=== PATIENT | male | born 1970 | race Caucasian/White ===

== ENCOUNTER 2017-03-01 07:56 | Inpatient (IN) | payer SELFPAY ==
[~2017-03-01] VITALS: Ht 177.8 cm; Wt 111.0 kg
[2017-03-01 08:00] VITALS: BP 129/73; PULSE 66; RESP 18; TEMP 98.9; O2SAT 97
[2017-03-01] MEDS ORDERED: MORPHINE SULFATE 4 MG/ML INJ IV PUSH ONE (08:30)
[2017-03-01] MEDS ORDERED: ONDANSETRON HCL 4 MG/2 ML VIAL IV PUSH ONE ×2 (08:30→08:52)
--- NOTE | 2017-03-01 08:43 | PD ---
HPI Chief Complaint: Fall Time Seen by Provider: 08:15 Travel History International Travel<30 days: No Contact w/Intl Traveler<30days: No Traveled to known affect area: No History of Present Illness HPI The patient is a 46-year-old male who presents to the emergency department for bilateral lower extremity weakness. The patient states he's been having some pain from the hip area bilateral that radiates down into the knees. The patient states he feels like his legs are "torn apart". The patient also complains of weakness the lower extremities, has difficulty walking , has been using a cane for the last several weeks and walking in the portal. The patient states he is more weak the morning, and slightly improves during the afternoon, but the weakness returns and neck a. The patient states he is trending out of bed earlier today, his legs were weak, he subsequently fell. The patient recently moved from [place], [place], to the local area several months ago and does not have a local primary physician. The patient denies any history of Guillain [place]. 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 The patient states his been cancer free for over 20 years. The patient denies any numbness or tingling to lower extremities, but does have a history of neuropathy, per his report, however takes no medications. The patient denies any weakness of the upper extremities and denies any difficulty swallowing or with breathing. The weakness is been ongoing for last several weeks and progressive. He denies any rash to lower extremities. He denies any urinary or fecal incontinence. PFSH Past Medical History Cancer: Yes (TESTICULAR-REMOVED IN REMISSION) Cardiomyopathy: Yes Chemotherapy: Yes Medical other: Yes (CHRONIC JOINT PAIN) Past Surgical History Abdominal Surgery: Yes (PARTIAL COLON REMOVAL) Appendectomy: Yes Social History Alcohol Use: No Tobacco Use: No Substance Use: No Allergies-Medications (Allergen,Severity, Reaction): Coded Allergies: Cat Dander (Verified Allergy, Severe, 03/01/17) EYES WATERING Latex (Verified Allergy, Severe, 03/01/17) SKIN RASH Reported Meds & Prescriptions Reported Meds & Active Scripts Active No Active Prescriptions or Reported Medications Review of Systems Except as stated in HPI: all other systems reviewed are Neg General / Constitutional: No: Fever Cardiovascular: No: Chest Pain or Discomfort Respiratory: No: Shortness of Breath Gastrointestinal: No: Nausea, Vomiting, Abdominal Pain Genitourinary: No: Dysuria, Incontinence Musculoskeletal: Positive: Weakness, Pain Neurologic: Positive: Weakness, Other (history of neuropathy), No: Paresthesia , Sensory Disturbance Physical Exam Narrative GENERAL: Awake, alert, 46-year-old male who appears his stated age and is in no acute respiratory distress. SKIN: Focused skin assessment warm/dry. HEAD: Atraumatic. Normocephalic. EYES: Pupils equal and round. No scleral icterus. No injection or drainage. ENT: No nasal bleeding or discharge. Mucous membranes pink and moist. NECK: Trachea midline. No JVD. CARDIOVASCULAR: Regular rate and rhythm. No murmur appreciated. RESPIRATORY: No accessory muscle use. Clear to auscultation. Breath sounds equal bilaterally. GASTROINTESTINAL: Abdomen soft, non-tender, nondistended. Well-healed midline scar. Back: No tenderness over the thoracic or lumbar vertebrae. Musculoskeletal: No cyanosis noted. Strength with flexion of the hips, extension knees, plantar flexion, flexion of the great toes bilateral is 4+/5. Positive dorsalis pedal pulses. NEUROLOGICAL: Awake and alert. No obvious cranial nerve deficits. Motor grossly within normal limits. Normal speech. Sensation is symmetric in the lower extremity is bilateral. Knee DTRs are slightly hyperreflexic at 3+, ankle DTRs are 2+. PSYCHIATRIC: Appropriate mood and affect; insight and judgment normal. Data Data Last Documented VS Vital Signs Date Time Temp Pulse Resp B/P Pulse Ox O2 Delivery O2 Flow Rate FiO2 03/01/17 09:30 64 20 129/73 97 Room Air 03/01/17 08:00 98.9 Orders Complete Blood Count With Diff (03/01/17 08:25) Comprehensive Metabolic Panel (03/01/17 08:25) Act Partial Throm Time (Ptt) (03/01/17 08:25) Prothrombin Time / Inr (Pt) (03/01/17 08:25) Westergren Sedimentation Rate (03/01/17 08:25) Creatine Kinase (Cpk) (03/01/17 08:25) Pelvis, Ap Only (Routine) (03/01/17 ) Morphine Inj (Morphine Inj) (03/01/17 08:30) Ondansetron Inj (Zofran Inj) (03/01/17 08:30) Mri L Spine W&W/O Contrast (03/01/17 ) Gadodiamide Pf Inj (Omniscan Pf Inj) (03/01/17 09:27) Consult Neurology (03/01/17 ) Consult Neurosurgery (03/01/17 ) Morphine Inj (Morphine Inj) (03/01/17 11:30) Dexamethasone Inj (Decadron Inj) (03/01/17 11:30) NPO (03/01/17 11:21) Dexamethasone (Decadron) (03/01/17 11:30) Mri C Spine W Contrast (03/01/17 ) Mri T Spine W Contrast (03/01/17 ) (Hub Use Only)Inp Phy Cons/Ref (03/01/17 ) (Hub Use Only)Inp Phy Cons/Ref (03/01/17 ) Admit Order (Ed Use Only) (03/01/17 11:46) Labs Laboratory Tests Test 03/01/17 08:34 White Blood Count 7.6 TH/MM3 Red Blood Count 4.49 MIL/MM3 Hemoglobin 15.4 GM/DL Hematocrit 43.1 % Mean Corpuscular Volume 96.0 FL Mean Corpuscular Hemoglobin 34.2 PG Mean Corpuscular Hemoglobin 35.6 % Concent Red Cell Distribution Width 13.1 % Platelet Count 202 TH/MM3 Mean Platelet Volume 9.7 FL Neutrophils (%) (Auto) 59.0 % Lymphocytes (%) (Auto) 26.1 % Monocytes (%) (Auto) 8.2 % Eosinophils (%) (Auto) 5.6 % Basophils (%) (Auto) 1.1 % Neutrophils # (Auto) 4.5 TH/MM3 Lymphocytes # (Auto) 2.0 TH/MM3 Monocytes # (Auto) 0.6 TH/MM3 Eosinophils # (Auto) 0.4 TH/MM3 Basophils # (Auto) 0.1 TH/MM3 CBC Comment DIFF FINAL Differential Comment Erythrocyte Sedimentation Rate 1 mm/hr Prothrombin Time 11.0 SEC Prothromb Time International 1.0 RATIO Ratio Activated Partial 26.3 SEC Thromboplast Time Sodium Level 137 MEQ/L Potassium Level 4.0 MEQ/L Chloride Level 103 MEQ/L Carbon Dioxide Level 25.0 MEQ/L Anion Gap 9 MEQ/L Blood Urea Nitrogen 16 MG/DL Creatinine 1.11 MG/DL Estimat Glomerular Filtration 71 ML/MIN Rate Random Glucose 102 MG/DL Calcium Level 8.8 MG/DL Total Bilirubin 0.8 MG/DL Aspartate Amino Transf 29 U/L (AST/SGOT) Alanine Aminotransferase 51 U/L (ALT/SGPT) Alkaline Phosphatase 82 U/L Total Creatine Kinase 273 U/L Total Protein 7.8 GM/DL Albumin 3.9 GM/DL MDM Medical Decision Making Medical Screen Exam Complete: Yes Emergency Medical Condition: Yes Medical Record Reviewed: Yes Interpretation(s) Last Impressions Pelvis X-Ray 03/01/17 0000 Signed Impressions: Service Date/Time: Wednesday, March 01, 2017 08:27 - CONCLUSION: Unremarkable examination of the pelvis. Dg Alberto MD Lumbar Spine MRI 03/01/17 0000 Signed Impressions: Service Date/Time: Wednesday, March 01, 2017 09:00 - CONCLUSION: 1. There is a left paracentral disc extrusion at L1-L2 completely effacing left lateral recess. There is mass effect on the adjacent nerve roots. 2. There is mild spinal canal stenosis at L3-L4 secondary to disc bulge and facet and ligamentum flavum hypertrophy. Please see above for detailed description of each level. Dg Harden MD Laboratory Tests Test 03/01/17 08:34 White Blood Count 7.6 TH/MM3 Red Blood Count 4.49 MIL/MM3 Hemoglobin 15.4 GM/DL Hematocrit 43.1 % Mean Corpuscular Volume 96.0 FL Mean Corpuscular Hemoglobin 34.2 PG Mean Corpuscular Hemoglobin 35.6 % Concent Red Cell Distribution Width 13.1 % Platelet Count 202 TH/MM3 Mean Platelet Volume 9.7 FL Neutrophils (%) (Auto) 59.0 % Lymphocytes (%) (Auto) 26.1 % Monocytes (%) (Auto) 8.2 % Eosinophils (%) (Auto) 5.6 % Basophils (%) (Auto) 1.1 % Neutrophils # (Auto) 4.5 TH/MM3 Lymphocytes # (Auto) 2.0 TH/MM3 Monocytes # (Auto) 0.6 TH/MM3 Eosinophils # (Auto) 0.4 TH/MM3 Basophils # (Auto) 0.1 TH/MM3 CBC Comment DIFF FINAL Differential Comment Erythrocyte Sedimentation Rate 1 mm/hr Prothrombin Time 11.0 SEC Prothromb Time International 1.0 RATIO Ratio Activated Partial 26.3 SEC Thromboplast Time Sodium Level 137 MEQ/L Potassium Level 4.0 MEQ/L Chloride Level 103 MEQ/L Carbon Dioxide Level 25.0 MEQ/L Anion Gap 9 MEQ/L Blood Urea Nitrogen 16 MG/DL Creatinine 1.11 MG/DL Estimat Glomerular Filtration 71 ML/MIN Rate Random Glucose 102 MG/DL Calcium Level 8.8 MG/DL Total Bilirubin 0.8 MG/DL Aspartate Amino Transf 29 U/L (AST/SGOT) Alanine Aminotransferase 51 U/L (ALT/SGPT) Alkaline Phosphatase 82 U/L Total Creatine Kinase 273 U/L Total Protein 7.8 GM/DL Albumin 3.9 GM/DL Differential Diagnosis Differential diagnosis includes upper motor neuron neuropathy, lower motor neuron neuropathy, Guillain [place], myositis, polymyalgia rheumatica, fracture, contusion, neuropathy, lumbar spine metastasis. Narrative Course IV was established, labs are drawn and sent, and the patient was placed on cardiac telemetry monitoring and continuous pulse oximetry monitoring. The patient was administer morphine and Zofran for his discomfort. MRI of the lumbar spine was ordered as patient is weak and slightly hyperreflexic. Invasive radiology lumbar puncture was also ordered to rule out pleocyctosis from Guillain [place]. Sedimentation rate and CPK were sent to lab. CPK is normal, sedimentation rate is 1. MRI does reveal a prominent disc bulge at the L1-L2 interface approximately 1 cm posteriorly with mass effect on the thecal sac. The patient has hyperreflexia at the knees 3+, normal at the ankles. Therefore, a call was placed to the neurosurgeon on-call, I discussed the patient with the mid-level provider for Dr. Ortiz who will evaluate the MRI. The invasive radiology lumbar puncture was canceled, this is most likely related to disc and not to Guillian barre. The patient was evaluated by neurosurgery in the emergency department, will add MRI of cervical spine and thoracic spine to rule out cord compression. They recommend admission to the medical service with consultation to neurosurgery. Therefore, the on-call medical team was paged for admission. Physician Communication Physician Communication [facility] were paged for admission. I discussed the patient with Dr. Goff who agrees with admission. Diagnosis Primary Impression: Myelopathy Additional Impression: Bilateral leg weakness Admitting Information Admitting Physician Requests: Admit Scripts No Active Prescriptions or Reported Meds Condition: Stable Orestes Zarate MD March 01, 2017 08:43
[2017-03-01 08:49] LABS: AUTOMATED NEUTROPHIL # 4.5 TH/MM3 (1.8-7.7); BASOPHIL # 0.1 TH/MM3 (0-0.2); BASOPHIL % 1.1 % (0.0-2.0); EOSINOPHIL # 0.4 TH/MM3 (0-0.4); EOSINOPHIL % 5.6 % (0.0-4.0); HEMATOCRIT 43.1 % (39.0-51.0); HEMO FLAGS DIFF FINAL; LYMPH % 26.1 % (9.0-44.0); MEAN CORPUSCULAR HEMOGLOBIN 34.2 PG (27.0-34.0); MEAN CORPUSCULAR HGB CONC 35.6 % (32.0-36.0); MONO % 8.2 % (0.0-8.0); PLATELET COUNT 202 TH/MM3 (150-450); RED BLOOD COUNT 4.49 MIL/MM3 (4.50-5.90); RED CELL DISTRIBUTION WIDTH 13.1 % (11.6-17.2); WHITE BLOOD COUNT 7.6 TH/MM3 (4.0-11.0)
[2017-03-01] MEDS ORDERED: PROPOFOL 200 MG/20 ML AMP IV ONE (08:52)
[2017-03-01] MEDS ORDERED: LACTATED RINGER'S 1000 ML INJ 2,000 ML IV ONE (08:53)
[2017-03-01 08:55] LABS: APTT (PATIENT) 26.3 SEC (24.3-30.1)
[2017-03-01 08:57] LABS: ANION GAP 9 MEQ/L (5-15); AST (GOT) 29 U/L (15-37); BLOOD UREA NITROGEN 16 MG/DL (7-18); CHLORIDE 103 MEQ/L (98-107); GLOMERULAR FILTRATION RATE 71 ML/MIN (>89); SODIUM (NA) 137 MEQ/L (136-145)
[2017-03-01 09:00] LABS: ALKALINE PHOSPHATASE 82 U/L (45-117); ALT (GPT) 51 U/L (12-78); CREATINE KINASE 273 U/L (39-308); TOTAL BILIRUBIN ADULT 0.8 MG/DL (0.2-1.0)
--- NOTE | 2017-03-01 09:19 | RADRPT ---
EXAM DATE/TIME: 03/01/2017 08:27 [facility] COMPARISON: No previous studies available for comparison. INDICATIONS : Bilateral pelvic pain after falling. MEDICAL HISTORY : None. SURGICAL HISTORY : None. ENCOUNTER: Initial ACUITY: 2 weeks PAIN SCORE: 8/10 LOCATION: Bilateral Pelvis. FINDINGS: A single frontal view of the pelvis demonstrates no evidence of fracture. The bony pelvic ring is in tact. Bony mineralization is normal. The soft tissues are intact. CONCLUSION: Unremarkable examination of the pelvis. Dg Alberto MD on March 01, 2017 at 9:16 Board Certified Radiologist. This report was verified electronically.
[2017-03-01] MEDS ORDERED: GADODIAMIDE PF 287 MG/ML 20 ML VIAL (for RAD MRI) IV ONE (09:27)
[2017-03-01 09:30] VITALS: BP 129/73; PULSE 64; RESP 20; O2SAT 97
--- NOTE | 2017-03-01 10:40 | RADRPT ---
EXAM DATE/TIME: 03/01/2017 09:00 [facility] COMPARISON: No previous studies available for comparison. INDICATIONS : Pain. Hx of testicular ca. CONTRAST: 20 cc Omniscan (gadodiamide) IV MEDICAL HISTORY : Carcinoma, testicular. SURGICAL HISTORY : Lobectomy. Appendectomy. Left orchiectomy. ENCOUNTER: Initial ACUITY: 4-6 days PAIN SCORE: 4/10 LOCATION: back TECHNIQUE: Multiplanar multisequence MRI of the lumbar spine was performed with and without contrast. FINDINGS: The most caudal appearing lumbar vertebra is numbered as L5. VERTEBRAE: Bone marrow signal is within normal limits the vertebral body height is maintained. There is no anter olisthesis or retrolisthesis. No bone lesion is seen. CONUS: Normal level and configuration. POST CONTRAST: No abnormal areas of contrast enhancement are seen. T12-L1: No disc herniation, canal stenosis, or neural foraminal stenosis. L1-L2: There is a left paracentral disc extrusion that extends superiorly from the disc space and extends ap proximately 10 mm posterior to the L1 vertebral body. It effaces the left lateral recess and has mass effect on the thecal sac. No spinal canal stenosis or right neural foraminal narrowing is present. T here is mild left neural foraminal narrowing. L2-L3: There is mild facet hypertrophy with a mild diffuse disc bulge. No canal stenosis or neuroforaminal s tenosis is present. L3-L4: There is a diffuse disc bulge with mild facet and ligamentum flavum hypertrophy. The lateral recesses are effaced and there is mild narrowing of the spinal canal. There is also mild bilateral neural for aminal stenosis. L4-L5: There is a diffuse disc bulge with small annular tear posteriorly. There is moderate facet hypertroph y. No spinal canal stenosis is present. There is mild narrowing of the neural foramina. L5-S1: Decreased disc height. On sagittal imaging no disc herniation, canal stenosis, or neural foraminal na rrowing is seen. CONCLUSION: 1. There is a left paracentral disc extrusion at L1-L2 completely effacing left lateral recess. There is mass effect on the adjacent nerve roots. 2. There is mild spinal canal stenosis at L3-L4 secondary to disc bulge and facet and ligamentum flav um hypertrophy. Please see above for detailed description of each level. Dg Harden MD on March 01, 2017 at 10:34 Board Certified Radiologist. This report was verified electronically.
[2017-03-01] MEDS ORDERED: MORPHINE SULFATE 4 MG/ML INJ IV PUSH PRN ×2 (11:30→16:00)
[2017-03-01] MEDS ORDERED: DEXAMETHASONE 4 MG TAB PO ONE (11:30)
[2017-03-01] MEDS ORDERED: DEXAMETHASONE SOD PHOS 4 MG/ML VIAL IV PUSH ONE (11:30)
[2017-03-01] MEDS ORDERED: SODIUM CHLOR 0.9% 1000 ML INJ 1,000 ML IV SCH ×2 (12:00→12:39)
[2017-03-01] MEDS ORDERED: ONDANSETRON HCL 4 MG/2 ML VIAL IV PUSH PRN (12:00)
[2017-03-01 12:30] VITALS: BP 117/58; PULSE 73; RESP 14; O2SAT 95
--- NOTE | 2017-03-01 12:40 | RADRPT ---
EXAM DATE/TIME: 03/01/2017 11:52 [facility] COMPARISON: No previous studies available for comparison. INDICATIONS : Inability to ambulate. CONTRAST: 20 cc Omniscan (gadodiamide) IV MEDICAL HISTORY : Carcinoma, testicular. SURGICAL HISTORY : Lobectomy. Colon resection. Right orchiectomy. ENCOUNTER: Initial ACUITY: 1 day PAIN SCORE: 5/10 LOCATION: Par[facility] TECHNIQUE: Multiplanar multisequence MRI of the thoracic spine was performed. FINDINGS: VERTEBRA: Normal vertebral body height. Bone marrow signal is within normal limits. There is thoracic scoliosis . ALIGNMENT: No anterolisthesis or retrolisthesis. CORD: Normal position and configuration. POST CONTRAST: No abnormal areas of contrast enhancement seen. T1-T2: No disc herniation, canal stenosis, or neural foraminal stenosis. T2-T3: No disc herniation, canal stenosis, or neural foraminal stenosis. T3-T4: No disc herniation, canal stenosis, or neural foraminal stenosis. T4-T5: No disc herniation, canal stenosis, or neural foraminal stenosis. T5-T6: There is a small central disc bulge. No canal stenosis or neural foraminal stenosis is present.. T6-T7: No disc herniation, canal stenosis, or neural foraminal stenosis. T7-T8: There is a small right paracentral disc protrusion that mildly effaces the spinal cord. No canal sten osis is present. T8-T9: No disc herniation, canal stenosis, or neural foraminal stenosis. T9-T10: No disc herniation, canal stenosis, or neural foraminal stenosis. T10-T11: No disc herniation, canal stenosis, or neural foraminal stenosis. T11-T12: No disc herniation, canal stenosis, or neural foraminal stenosis. T12-L1: No disc herniation, canal stenosis, or neural foraminal stenosis. There are air space opacities throughout the lungs bilaterally, more pronounced in the lower lung zon es. There are also mediastinal lymph nodes present that appear enlarged. CONCLUSION: 1. Thoracic scoliosis with mild degenerative change. However, no significant spinal canal stenosis or neural foraminal narrowing is identified. 2. There are space opacities at both lung bases and suspected enlarged mediastinal lymph nodes. Consi maria victoria chest CT with IV contrast for further evaluation. Dg Harden MD on March 01, 2017 at 12:35 Board Certified Radiologist. This report was verified electronically.
[2017-03-01] MEDS ORDERED: ceFAZolin 2 GM PREMIX 50 ML IV SCH (12:45)
--- NOTE | 2017-03-01 12:48 | HHI.HP ---
[facility] Service [facility] Primary Care Physician No Primary Care Physician Admission Diagnosis myelopathy versus cord compression, bilateral lower extremity weakne Diagnoses: (1) Bilateral leg weakness Diagnosis: Principal Chief Complaint: weakness of both legs Travel History International Travel<30 Days: No Contact w/Intl Traveler <30 Da: No Traveled to Known Affected Are: No History of Present Illness patient is a 46 y/o male with history of testicular cancer in remote past presented to ER with weakness and pain of both legs. he says that this has been going on for a few months. initially it was attributed to the neuropathy but he says that the weakness has been getting worse to the extent that he had problem with walking. he says that the pain starts in hip area and radiates down to both feet. pain is worse when he remains in one position for a period of time. he denies any urine or stool incontinence. but he has some tingling of both legs. he says that his left arm is weaker than the right side. Review of Systems Constitutional: DENIES: Fever, Weight loss, Chills, Night Sweats Eyes: DENIES: Blurred vision, Diplopia, Vision loss, Double Vision Ears, nose, mouth, throat: DENIES: Tinnitus, Vertigo, Throat pain, Epistaxis Respiratory: DENIES: Apneas, Cough, Snoring, Wheezing, Hemoptysis, Sputum production, Shortness of breath Cardiovascular: DENIES: Chest pain, Palpitations, Syncope, Dyspnea on Exertion , PND, Lower Extremity Edema, Orthopnea, Claudication Gastrointestinal: DENIES: Abdominal pain, Black stools, Bloody stools, Constipation, Diarrhea, Nausea, Vomiting, Difficulty Swallowing, Anorexia Genitourinary: DENIES: Urinary frequency, Urgency, Hematuria, Dysuria Musculoskeletal: DENIES: Joint pain, Muscle aches, Stiffness, Joint Swelling Integumentary: DENIES: Rash Neurologic: COMPLAINS OF: Abnormal gait, Localized weakness, DENIES: Headache , Seizures, Speech Problems, Tremor, Poor Balance Psychiatric: DENIES: Anxiety, Confusion, Mood changes, Depression, Hallucinations, Agitation, Suicidal Ideation, Homicidal Ideation, Delusions Past Family Social History Past Medical History testicular cancer Past Surgical History testicular and lung surgery. appendectomy Reported Medications none reported. Allergies: Coded Allergies: Cat Dander (Verified Allergy, Severe, 03/01/17) EYES WATERING Latex (Verified Allergy, Severe, 03/01/17) SKIN RASH Active Ordered Medications Current Medications Morphine Sulfate (Morphine Inj) 4 mg ONCE ONCE IV PUSH Last administered on 08:40; Start 03/01/17 at 08:30; Stop 03/01/17 at 08:31; Status DC Ondansetron HCl (Zofran Inj) 4 mg ONCE ONCE IV PUSH Last administered on 08:40; Start 03/01/17 at 08:30; Stop 03/01/17 at 08:31; Status DC Gadodiamide (Omniscan Pf Inj) 20 ml STK-MED ONCE IV Last administered on 09:27; Start 03/01/17 at 09:27; Stop 03/01/17 at 09:28; Status DC Morphine Sulfate (Morphine Inj) 2 mg Q4H PRN IV PUSH PAIN SCALE 6 TO 10 Last administered on 03/01/17 11:32; Start 03/01/17 at 11:30 Dexamethasone Sodium Phosphate (Decadron Inj) 8 mg ONCE ONCE IV PUSH Last administered on 03/01/17 11:32; Start 03/01/17 at 11:30; Stop 03/01/17 at 11:31; Status DC Dexamethasone (Decadron) 4 mg ONCE ONCE PO ; Start 03/01/17 at 11:30; Stop at 11:31; Status DC Ondansetron HCl 4 mg 4 mg Q8H PRN IV PUSH NAUSEA; Start 03/01/17 at 12:00 Sodium Chloride (NS 1000 ml Inj) 1,000 ml @ 100 mls/hr Q10H IV ; Start 03/01/17 at 12:00 Family History diabetes in father. Social History smokes half a pack a day. drinks occasionally. Physical Exam Vital Signs Vital Signs Date Time Temp Pulse Resp B/P Pulse Ox O2 Delivery O2 Flow Rate FiO2 03/01/17 12:30 73 14 117/58 95 Room Air 03/01/17 09:30 64 20 129/73 97 Room Air 03/01/17 08:00 98.9 66 18 129/73 97 Physical Exam GENERAL: This is a well-nourished, well-developed patient, in no apparent distress. SKIN: No rashes, ecchymoses or lesions. Cool and dry. HEAD: Atraumatic. Normocephalic. No temporal or scalp tenderness. EYES: Pupils equal round and reactive. Extraocular motions intact. No scleral icterus. No injection or drainage. ENT: Nose without bleeding, purulent drainage or septal hematoma. Throat without erythema, tonsillar hypertrophy or exudate. Uvula midline. Airway patent. NECK: Trachea midline. No JVD or lymphadenopathy. Supple, nontender, no meningeal signs. CARDIOVASCULAR: Regular rate and rhythm without murmurs, gallops, or rubs. RESPIRATORY: Clear to auscultation. Breath sounds equal bilaterally. No wheezes , rales, or rhonchi. GASTROINTESTINAL: Abdomen soft, non-tender, nondistended. No hepato-splenomegaly , or palpable masses. No guarding. MUSCULOSKELETAL: Extremities without clubbing, cyanosis, or edema. No joint tenderness, effusion, or edema noted. No calf tenderness. Negative Homans sign bilaterally. NEUROLOGICAL: Awake and alert. straight leg raising positive on both sides. Laboratory Laboratory Tests Test 03/01/17 08:34 White Blood Count 7.6 Red Blood Count 4.49 Hemoglobin 15.4 Hematocrit 43.1 Mean Corpuscular Volume 96.0 Mean Corpuscular Hemoglobin 34.2 Mean Corpuscular Hemoglobin 35.6 Concent Red Cell Distribution Width 13.1 Platelet Count 202 Mean Platelet Volume 9.7 Neutrophils (%) (Auto) 59.0 Lymphocytes (%) (Auto) 26.1 Monocytes (%) (Auto) 8.2 Eosinophils (%) (Auto) 5.6 Basophils (%) (Auto) 1.1 Neutrophils # (Auto) 4.5 Lymphocytes # (Auto) 2.0 Monocytes # (Auto) 0.6 Eosinophils # (Auto) 0.4 Basophils # (Auto) 0.1 CBC Comment DIFF FINAL Differential Comment Erythrocyte Sedimentation Rate 1 Prothrombin Time 11.0 Prothromb Time International 1.0 Ratio Activated Partial 26.3 Thromboplast Time Sodium Level 137 Potassium Level 4.0 Chloride Level 103 Carbon Dioxide Level 25.0 Anion Gap 9 Blood Urea Nitrogen 16 Creatinine 1.11 Estimat Glomerular Filtration 71 Rate Random Glucose 102 Calcium Level 8.8 Total Bilirubin 0.8 Aspartate Amino Transf 29 (AST/SGOT) Alanine Aminotransferase 51 (ALT/SGPT) Alkaline Phosphatase 82 Total Creatine Kinase 273 Total Protein 7.8 Albumin 3.9 Result Diagram: 03/01/17 0834 03/01/17 0834 Imaging Last Impressions Pelvis X-Ray 03/01/17 0000 Signed Impressions: Service Date/Time: Wednesday, March 01, 2017 08:27 - CONCLUSION: Unremarkable examination of the pelvis. Dg Alberto MD Lumbar Spine MRI 03/01/17 0000 Signed Impressions: Service Date/Time: Wednesday, March 01, 2017 09:00 - CONCLUSION: 1. There is a left paracentral disc extrusion at L1-L2 completely effacing left lateral recess. There is mass effect on the adjacent nerve roots. 2. There is mild spinal canal stenosis at L3-L4 secondary to disc bulge and facet and ligamentum flavum hypertrophy. Please see above for detailed description of each level. Dg Harden MD Assessment and Plan Assessment and Plan A/P - bilateral lower extremity weakness/ left upper extremity weakness lumbar spine MRI with disc protrusion at L1-2 level/ cervical MRI pending received a dose of dexamethasone in ER- keep NPO for now- neurosurgery and neurology consulted. continue with pain control. -history of testicular cancer in remote past -DVT prophylaxis with SCD's Discussed Condition With ER physician and the patient. Physician Certification 2 Midnight Certification Type: Admission for Inpatient Services Order for Inpatient Services The services are ordered in accordance with Medicare regulations or non- Medicare payer requirements, as applicable. In the case of services not specified as inpatient-only, they are appropriately provided as inpatient services in accordance with the 2-midnight benchmark. Estimated LOS (days): 3 days is the estimated time the patient will need to remain in the hospital, assuming treatment plan goals are met and no additional complications. Post-Hospital Plan: Not yet determined Gerard Goff MD March 01, 2017 12:48
--- NOTE | 2017-03-01 12:59 | RADRPT ---
EXAM DATE/TIME: 03/01/2017 11:52 [facility] COMPARISON: No previous studies available for comparison. INDICATIONS : Inability to ambulate. CONTRAST: 20 cc Omniscan (gadodiamide) IV MEDICAL HISTORY : Carcinoma, testicular. SURGICAL HISTORY : Colon resection. Lobectomy. Right orchiectomy. ENCOUNTER: Initial ACUITY: 1 day PAIN SCORE: 5/10 LOCATION: [facility] TECHNIQUE: Multiplanar, multisequence MRI examination of the cervical spine was performed. FINDINGS: VERTEBRAE: There is mild degenerative endplate change at C3-C4 and C6-C7. There is a hemangioma within the C7 ve rtebral body. ALIGNMENT: No anterolisthesis or retrolisthesis. CORD: Spinal cord demonstrates flattening at the C3-C4, C4-C5, and most severely at C5-C6 and C6-C7 levels. There is increased signal within the cord at the C6 level. POST FOSSA: The cerebellar tonsils are normal in position. POST-CONTRAST: No abnormal areas of enhancement are seen. The craniocervical junction and C1-C2 level demonstrate no acute finding. C2-C3: No disc herniation, canal stenosis, or neural frontal narrowing. C3-C4: There is decreased disc height with a moderate size diffuse disc bulge neck on this mild spinal canal stenosis and flattening of the spinal cord. There are also bilateral uncovertebral osteophytes resul ting in moderate bilateral neural foraminal narrowing. C4-C5: There is a central disc protrusion at C4-C5 that abuts and slightly effaces the spinal cord. No signi ficant canal stenosis is present. There is mild neural foraminal narrowing bilaterally. C5-C6: There is decreased disc height with moderate size diffuse posterior disc osteophyte complex causing m oderate spinal canal stenosis and anterior-posterior flattening of the cord. There is also moderate t o severe bilateral neural foraminal stenosis. C6-C7: There is decreased disc height with an extruded disc in a central to left paracentral location. It ex tends posterior to the C6 vertebral body. Bilateral uncovertebral osteophytes are also present. There is moderate to severe spinal canal stenosis with flattening of the spinal cord and moderate to sever e bilateral neural foraminal stenosis. C7-T1: There is mild facet hypertrophy bilaterally. Small posterior disc osteophyte complex is present. No s ignificant canal or neural foraminal narrowing is present. CONCLUSION: Severe degenerative change of the cervical spine with severe spinal canal stenosis at C6-C7 secondary primarily to an extruded disc. There is also spinal canal stenosis at C3-C4 and C5-C6. Areas of neur al foraminal narrowing are also present, as above. Dg Harden MD on March 01, 2017 at 12:49 Board Certified Radiologist. This report was verified electronically.
[2017-03-01] MEDS: VANCOMYCIN INJ 1,000 MG in SODIUM CHLOR 0.9% 250 ML INJ 250 ML IV SCH ×2 (13:50→13:56)
--- NOTE | 2017-03-01 14:14 | PD.CONS ---
(Kavon Ortiz MD) HPI Consult Requested By Primary Care Physician No Primary Care Physician (Kavon Ortiz MD) Service Neurosurgery Consult Requested By Dr. Zarate Reason for Consult Bilateral lower extremity weakness, rule out cord compression, myelopathy History of Present Illness Mr. Vázquez is a 46-year-old male who presents to the ED today with complaints of severe lower extremity weakness. Mr. Vázquez reports he has been suffering from progressive lower extremity weakness for the past 2 months. He has come to the point where he is unable to ambulate. He reports of pain located in the bilateral upper thigh. He denies any associated falls or trauma. He reports of minimal cervical discomfort. He reports of some numbness in his left fingers. He also feels some weakness in his upper extremities. He denies bowel or bladder incontinence, fevers, chills. He denies IV drug use. (Ashely Alford) Review of Systems Constitutional: DENIES: Fever, Chills Eyes: DENIES: Vision loss Ears, nose, mouth, throat: DENIES: Hearing loss Respiratory: DENIES: Apneas, Hemoptysis, Shortness of breath Cardiovascular: DENIES: Chest pain Genitourinary: DENIES: Urinary incontinence Neurologic: COMPLAINS OF: Abnormal gait, Localized weakness, Paresthesias, Poor Balance Psychiatric: DENIES: Hallucinations (Ashely Alford) Past Family Social History Allergies: Coded Allergies: Cat Dander (Verified Allergy, Severe, 03/01/17) EYES WATERING Latex (Verified Allergy, Severe, 03/01/17) SKIN RASH Active Ordered Medications Current Medications Morphine Sulfate (Morphine Inj) 4 mg ONCE ONCE IV PUSH Last administered on 08:40; Start 03/01/17 at 08:30; Stop 03/01/17 at 08:31; Status DC Ondansetron HCl (Zofran Inj) 4 mg ONCE ONCE IV PUSH Last administered on 08:40; Start 03/01/17 at 08:30; Stop 03/01/17 at 08:31; Status DC Gadodiamide (Omniscan Pf Inj) 20 ml STK-MED ONCE IV Last administered on 09:27; Start 03/01/17 at 09:27; Stop 03/01/17 at 09:28; Status DC Morphine Sulfate (Morphine Inj) 2 mg Q4H PRN IV PUSH PAIN SCALE 6 TO 10 Last administered on 03/01/17 11:32; Start 03/01/17 at 11:30 Dexamethasone Sodium Phosphate (Decadron Inj) 8 mg ONCE ONCE IV PUSH Last administered on 03/01/17 11:32; Start 03/01/17 at 11:30; Stop 03/01/17 at 11:31; Status DC Dexamethasone (Decadron) 4 mg ONCE ONCE PO ; Start 03/01/17 at 11:30; Stop at 11:31; Status DC Ondansetron HCl 4 mg 4 mg Q8H PRN IV PUSH NAUSEA; Start 03/01/17 at 12:00 Sodium Chloride 1,000 ml @ 100 mls/hr Q10H IV ; Start 03/01/17 at 12:00 Sodium Chloride 1,000 ml @ 100 mls/hr Q10H IV ; Start 03/01/17 at 12:39 Cefazolin Sodium/ Dextrose 50 ml @ 150 mls/hr ECHOCARDIOGRAPHER IV Last administered on 03/01/17 12:59; Start 03/01/17 at 12:45; Stop 03/02/17 at 12:44 Vancomycin HCl/ Sodium Chloride (Vancomycin Inj/ NS 250 ml Inj) 250 ml @ 250 mls/hr ECHOCARDIOGRAPHER IV Last administered on 03/01/17 13:50; Start 03/01/17 at 12:45 ; Stop 03/02/17 at 12:44 Artificial Tears (Lacrilube Opht Oint) 3.5 applic STK-MED ONCE .ROUTE ; Start at 14:20; Stop 03/01/17 at 14:21; Status DC Midazolam HCl (Versed Inj) 2 mg STK-MED ONCE .ROUTE ; Start 03/01/17 at 14:20; Stop 03/01/17 at 14:21; Status DC Fentanyl Citrate (fentaNYL INJ) 250 mcg STK-MED ONCE .ROUTE ; Start 03/01/17 at 14:20; Stop 03/01/17 at 14:21; Status DC Fentanyl Citrate (fentaNYL INJ) 250 mcg STK-MED ONCE .ROUTE ; Start 03/01/17 at 14:20; Stop 03/01/17 at 14:21; Status DC Famotidine (Pepcid Inj) 20 mg STK-MED ONCE .ROUTE ; Start 03/01/17 at 14:21; Stop 03/01/17 at 14:22; Status DC Microfibriller Collagen Hemostat (Avitene Bandage) 1 bandage STK-MED ONCE .ROUTE ; Start 03/01/17 at 14:21; Stop 03/01/17 at 14:22; Status DC Thrombin (Thrombin Top Soln) 10,000 units STK-MED ONCE .ROUTE ; Start 03/01/17 at 14:21; Stop 03/01/17 at 14:22; Status DC Gelatin (Gelfoam 100 Top) 1 foam STK-MED ONCE .ROUTE ; Start 03/01/17 at 14:21; Stop 03/01/17 at 14:22; Status DC Gentamicin Sulfate (Gentamicin Inj) 240 mg STK-MED ONCE .ROUTE ; Start 03/01/17 at 14:22; Stop 03/01/17 at 14:23; Status DC (Kavon Ortiz MD) Past Medical History Testicular CA Cardiomyopathy Chemotherapy Past Surgical History Partial Colectomy Testicular removal for CA Appendectomy Reported Medications reviewed in EMR Active Ordered Medications Laboratory Tests Test 03/01/17 03/01/17 08:34 12:55 White Blood Count 7.6 TH/MM3 Red Blood Count 4.49 MIL/MM3 Hemoglobin 15.4 GM/DL Hematocrit 43.1 % Mean Corpuscular Volume 96.0 FL Mean Corpuscular Hemoglobin 34.2 PG Mean Corpuscular Hemoglobin 35.6 % Concent Red Cell Distribution Width 13.1 % Platelet Count 202 TH/MM3 Mean Platelet Volume 9.7 FL Neutrophils (%) (Auto) 59.0 % Lymphocytes (%) (Auto) 26.1 % Monocytes (%) (Auto) 8.2 % Eosinophils (%) (Auto) 5.6 % Basophils (%) (Auto) 1.1 % Neutrophils # (Auto) 4.5 TH/MM3 Lymphocytes # (Auto) 2.0 TH/MM3 Monocytes # (Auto) 0.6 TH/MM3 Eosinophils # (Auto) 0.4 TH/MM3 Basophils # (Auto) 0.1 TH/MM3 CBC Comment DIFF FINAL Differential Comment Erythrocyte Sedimentation Rate 1 mm/hr Prothrombin Time 11.0 SEC Prothromb Time International 1.0 RATIO Ratio Activated Partial 26.3 SEC Thromboplast Time Sodium Level 137 MEQ/L Potassium Level 4.0 MEQ/L Chloride Level 103 MEQ/L Carbon Dioxide Level 25.0 MEQ/L Anion Gap 9 MEQ/L Blood Urea Nitrogen 16 MG/DL Creatinine 1.11 MG/DL Estimat Glomerular Filtration 71 ML/MIN Rate Random Glucose 102 MG/DL Calcium Level 8.8 MG/DL Total Bilirubin 0.8 MG/DL Aspartate Amino Transf 29 U/L (AST/SGOT) Alanine Aminotransferase 51 U/L (ALT/SGPT) Alkaline Phosphatase 82 U/L Total Creatine Kinase 273 U/L Total Protein 7.8 GM/DL Albumin 3.9 GM/DL Blood Type O NEGATIVE Antibody Screen NEGATIVE Blood Bank Comment Family History noncontributory Social History Denies etoh, tobacco, or illicit drug use (Ashely Alford) Physical Exam Vital Signs Vital Signs Date Time Temp Pulse Resp B/P Pulse Ox O2 Delivery O2 Flow Rate FiO2 03/01/17 12:30 73 14 117/58 95 Room Air 03/01/17 09:30 64 20 129/73 97 Room Air 03/01/17 08:00 98.9 66 18 129/73 97 Laboratory Laboratory Tests Test 03/01/17 03/01/17 08:34 12:55 White Blood Count 7.6 Red Blood Count 4.49 Hemoglobin 15.4 Hematocrit 43.1 Mean Corpuscular Volume 96.0 Mean Corpuscular Hemoglobin 34.2 Mean Corpuscular Hemoglobin 35.6 Concent Red Cell Distribution Width 13.1 Platelet Count 202 Mean Platelet Volume 9.7 Neutrophils (%) (Auto) 59.0 Lymphocytes (%) (Auto) 26.1 Monocytes (%) (Auto) 8.2 Eosinophils (%) (Auto) 5.6 Basophils (%) (Auto) 1.1 Neutrophils # (Auto) 4.5 Lymphocytes # (Auto) 2.0 Monocytes # (Auto) 0.6 Eosinophils # (Auto) 0.4 Basophils # (Auto) 0.1 CBC Comment DIFF FINAL Differential Comment Erythrocyte Sedimentation Rate 1 Prothrombin Time 11.0 Prothromb Time International 1.0 Ratio Activated Partial 26.3 Thromboplast Time Sodium Level 137 Potassium Level 4.0 Chloride Level 103 Carbon Dioxide Level 25.0 Anion Gap 9 Blood Urea Nitrogen 16 Creatinine 1.11 Estimat Glomerular Filtration 71 Rate Random Glucose 102 Calcium Level 8.8 Total Bilirubin 0.8 Aspartate Amino Transf 29 (AST/SGOT) Alanine Aminotransferase 51 (ALT/SGPT) Alkaline Phosphatase 82 Total Creatine Kinase 273 Total Protein 7.8 Albumin 3.9 Blood Type O NEGATIVE Antibody Screen NEGATIVE Blood Bank Comment (Kavon Ortiz MD) Physical Exam Mr. Vázquez is alert, awake and oriented to time, place and person. Speech is fluent. Higher cognitive functions are normal. Cranial nerve examination demonstrates the pupils to be equal, round, and reactive to light. Extra-ocular movements are intact. Facial motor and sensory function are normal and symmetrical. Gross hearing is intact, bilaterally. Sternocleidomastoid and trapezius muscles have normal and symmetrical strength. Other cranial nerves are intact. Neck is soft and supple. Cervical spine has a full range of motion in anterior flexion, extension, lateral bending, and rotation without pain. Muscle testing reveals hypertonicity in the lower extremities. Muscle strength is 5/5 in bilateral deltoid, 5-/5 right biceps, 4+/5 left biceps, 4/5 bilateral triceps, and ecommerce manager. In the lower extremities, strength is 2 to 3 /5 in both iliopsoas, quadriceps, hamstrings, 4/5 plantar flexion, dorsiflexion, and extensor hallicus longus. Sensory examination is intact to light touch in both the upper and lower extremities, symmetrically. Deep tendon reflexes are trace in the biceps, triceps, and brachioradialis, bilaterally, in the upper extremities. In the lower extremities, the patellar are 3+ brisk, and Achilles are 2+, bilaterally. There is a bilateral Babinski response. Hoffmanns sign is absent. There is no clonus. Cerebellar examination is intact to [id number] test. (Ashely Alford) Result Diagram: 03/01/17 0834 03/01/17 0834 Imaging Last Impressions Thoracic Spine MRI 03/01/17 0000 Signed Impressions: Service Date/Time: Wednesday, March 01, 2017 11:52 - CONCLUSION: 1. Thoracic scoliosis with mild degenerative change. However, no significant spinal canal stenosis or neural foraminal narrowing is identified. 2. There are space opacities at both lung bases and suspected enlarged mediastinal lymph nodes. Consider chest CT with IV contrast for further evaluation. gD Harden MD Pelvis X-Ray 03/01/17 Signed Impressions: Service Date/Time: Wednesday, March 01, 2017 08:27 - CONCLUSION: Unremarkable examination of the pelvis. Dg Alberto MD Lumbar Spine MRI 03/01/17 Signed Impressions: Service Date/Time: Wednesday, March 01, 2017 09:00 - CONCLUSION: 1. There is a left paracentral disc extrusion at L1-L2 completely effacing left lateral recess. There is mass effect on the adjacent nerve roots. 2. There is mild spinal canal stenosis at L3-L4 secondary to disc bulge and facet and ligamentum flavum hypertrophy. Please see above for detailed description of each level. Dg Harden MD Cervical Spine MRI 03/01/17 Signed Impressions: Service Date/Time: Wednesday, March 01, 2017 11:52 - CONCLUSION: Severe degenerative change of the cervical spine with severe spinal canal stenosis at C6-C7 secondary primarily to an extruded disc. There is also spinal canal stenosis at C3-C4 and C5-C6. Areas of neural foraminal narrowing are also present, as above. Dg Harden MD (Kvaon Ortiz MD) Imaging Laboratory Tests Test 03/01/17 03/01/17 08:34 12:55 White Blood Count 7.6 TH/MM3 Red Blood Count 4.49 MIL/MM3 Hemoglobin 15.4 GM/DL Hematocrit 43.1 % Mean Corpuscular Volume 96.0 FL Mean Corpuscular Hemoglobin 34.2 PG Mean Corpuscular Hemoglobin 35.6 % Concent Red Cell Distribution Width 13.1 % Platelet Count 202 TH/MM3 Mean Platelet Volume 9.7 FL Neutrophils (%) (Auto) 59.0 % Lymphocytes (%) (Auto) 26.1 % Monocytes (%) (Auto) 8.2 % Eosinophils (%) (Auto) 5.6 % Basophils (%) (Auto) 1.1 % Neutrophils # (Auto) 4.5 TH/MM3 Lymphocytes # (Auto) 2.0 TH/MM3 Monocytes # (Auto) 0.6 TH/MM3 Eosinophils # (Auto) 0.4 TH/MM3 Basophils # (Auto) 0.1 TH/MM3 CBC Comment DIFF FINAL Differential Comment Erythrocyte Sedimentation Rate 1 mm/hr Prothrombin Time 11.0 SEC Prothromb Time International 1.0 RATIO Ratio Activated Partial 26.3 SEC Thromboplast Time Sodium Level 137 MEQ/L Potassium Level 4.0 MEQ/L Chloride Level 103 MEQ/L Carbon Dioxide Level 25.0 MEQ/L Anion Gap 9 MEQ/L Blood Urea Nitrogen 16 MG/DL Creatinine 1.11 MG/DL Estimat Glomerular Filtration 71 ML/MIN Rate Random Glucose 102 MG/DL Calcium Level 8.8 MG/DL Total Bilirubin 0.8 MG/DL Aspartate Amino Transf 29 U/L (AST/SGOT) Alanine Aminotransferase 51 U/L (ALT/SGPT) Alkaline Phosphatase 82 U/L Total Creatine Kinase 273 U/L Total Protein 7.8 GM/DL Albumin 3.9 GM/DL Blood Type O NEGATIVE Antibody Screen NEGATIVE Blood Bank Comment (Ashely Alford) Attending Statement I reviewed his clinical and radiological studies. He has severe cervical myelopathy with quadriparesis. Start neuro checks in a serial fashion. Suspect either a large cervical disk herniation, metastatic disease, or multiple sclerosis with myelitis. Surgical procedure is likely indicated. Recommend a STAT MRI of cervical and thoracic spine Respiratory. pulmonary toilette, nasotracheal suction, and breathing treatments with nebulizers. PT and OT eval Nutrition. Oral diet Renal. monitor closely urine output, BUN and creatinine Endocrine. Monitor serial Acu checks and SSI for tight control ID monitor for signs of infection Protonix for stress ulcer prophylaxis Joe hose and SCD's for DVT prophylaxis Addendum. MRI was reviewed. Large disk herniation and extrusion at C6-7, severe stenosis at C5-6 and to a lesert degree at C3-4. Recommend urgent surgical decompression with an anterior cervical discectomy and arthrodhesis. We have discussed the details including the [id number] details of the surgical procedure, its indications, alternatives, risks, and potential complications. Risks and potential complications include, but are not limited to, infection, blood loss, CSF leak, partial or complete loss of sight in one or both eyes, paresis, paralysis, permanent pain or difficulty swallowing, loss of bowel or bladder function, complications from anesthesia, blood clot, stroke, myocardial infarction, or even . (Kavon Ortiz MD) Kavon Ortiz MD March 01, 2017 14:14 Ashely Alford March 01, 2017 15:32
[2017-03-01] MEDS ORDERED: ARTIFICIAL TEARS OPTH OINT 3.5 APPLIC/3.5 GM TUBO ONE (14:20)
[2017-03-01] MEDS ORDERED: fentaNYL CITRATE 250 MCG/5 ML AMP ONE ×2 (14:20)
[2017-03-01] MEDS ORDERED: MIDAZOLAM HCL 2 MG/2 ML VIAL ONE (14:20)
[2017-03-01] MEDS ORDERED: MICROFIBRILLAR COLLAGEN HEMOSTAT 70 X 35 MM BANDAGE ONE (14:21)
[2017-03-01] MEDS ORDERED: FAMOTIDINE 20 MG/2 ML VIAL ONE (14:21)
[2017-03-01] MEDS ORDERED: GELFOAM SIZE 100 ONE (14:21)
[2017-03-01] MEDS ORDERED: THROMBIN (TOPICAL) 5,000 UNIT VIAL ONE (14:21)
[2017-03-01] MEDS ORDERED: GENTAMICIN SULFATE 80 MG/2 ML VIAL ONE (14:22)
[2017-03-01] MEDS ORDERED: SODIUM CHLORIDE 0.9% FLUSH 5 ML FLUSH IVF PRN (15:45)
[2017-03-01] MEDS ORDERED: ACETAMINOPHEN 325 MG TAB PO PRN (16:00)
[2017-03-01] MEDS ORDERED: ceFAZolin INJ 1,000 MG VIAL IV ONE ×2 (17:00)
--- NOTE | 2017-03-01 18:37 | RADRPT ---
EXAM DATE/TIME: 03/01/2017 14:55 [facility] COMPARISON: No previous studies available for comparison. INDICATIONS : C5-C7 fusion. MEDICAL HISTORY : None. SURGICAL HISTORY : None. ENCOUNTER: Subsequent ACUITY: 1 day PAIN SCORE: Non-responsive. LOCATION: C5-C7 FINDINGS: Lateral view in the operating room shows evidence of discectomy and fusion procedure with interbody a nd anterior instrumentation at C5/C6. Alignment within normal limits. No gross complication demonstra mingo. CONCLUSION: Discectomy and fusion procedure at C5/C6. No acute abnormality demonstrated. Dg Caldwell MD on March 01, 2017 at 18:35 Board Certified Radiologist. This report was verified electronically.
[2017-03-01] MEDS: DEXAMETHASONE SOD PHOS 4 MG/ML VIAL IV PUSH SCH (18:45)
[2017-03-01] MEDS: NS + KCL 20 MEQ INJ 1,000 ML IV SCH (19:00)
[2017-03-01] MEDS ORDERED: *morphine SULFATE 8 MG/ML PERIprocedure ONLY ONE ×2 (19:16→19:37)
[2017-03-01] MEDS: SODIUM CHLORIDE 0.9% FLUSH 5 ML FLUSH IVF SCH (20:01)
[2017-03-01] MEDS ORDERED: diphenhydrAMINE HCL 50 MG/ML VIAL ONE (20:42)
[2017-03-01] MEDS: ceFAZolin 2 GM PREMIX 50 ML IV SCH (20:54)
[2017-03-01] MEDS: DOCUSATE SODIUM 100 MG CAP PO SCH (20:54)
--- NOTE | 2017-03-01 21:54 | PD.OP ---
Operative Report Date of Surgery: March 01, 2017 Preoperative Diagnosis: Cervical disk herniation with cord compression, sevee myelopathy and tetraparesis Postoperative Diagnosis: Cervical disk herniation with cord compression, sevee myelopathy and tetraparesis Procedure: C5-6, C6-7 anterior cervical discectomy, interbody arthodhesis using PEEK cage filled with autologous bone graft, Simplicity plate and screws. Anesthesia: general Surgeon: Kavon Ortiz Road Mixer Operator(s): huey campos Operation and Findings: INDICATIONS FOR THE PROCEDURE Mr Vázquez is a 46 year-old male who presented with intractable neck pain, severe myelopathy and tetraparesis. He was found to have significant spondylosis with stenosis, a large disk herniation and severe spinal cord compression. A surgical decompression and arthrodhesis were indicated. The [id number] details of the procedure, indications, alternatives, risks and potential complications were fully discussed with the patient. The patient fully understood. All The questions were answered. No guarantees were given. The patient voiced requesting the procedure and provided informed consents. The patient was offered the alternative of delaying the procedure and continuing with nonsurgical management. DETAILS OF THE SURGICAL PROCEDURE After the induction of general anesthesia, endotracheal intubation was performed. A Fried catheter, bilateral RENETTA hose, and sequential compression devices were placed and kept throughout the procedure. Placement of electrodes for neurophysiological monitoring of the somato sensorial evoked potentials. motor evoked potentials, and EMG as well as laryngeal nerve monitoring was achieved. The patient was positioned supine on a [place] table with the head over a gel doughnut. All pressure points were carefully padded with eggcrate mattress. The eyes were tapped shut after ointment was applied by the anesthesiologist to prevent corneal abrasion. A Daniel hugger was placed over the exposed lower body to maintain control of the core body temperature. The electrophysiological team placed the needles and electrodes in their proper location and baseline SSEP's and motor evoked potentials were registered prior and after positioning and endotracheal intubation. The anterior cervical region was prepped and draped in the usual sterile fashion. A localizing x-ray was performed with a C-arm. The surgical procedure was performed in several steps as follow: SURGICAL APPROACH A skin incision was made along the inferior cervical crease with a #10 blade. The dissection was carried out through the platysma exposing the sternocleidomastoid muscle. The cervical spine was approached following the fascial layers of the neck just medial to the anterior border of the sternocleidomastoid and carotid sheath by a combination of sharp and dull dissection. The omohyoid muscle was identified and carefully dissected laterally and the deep cervical fascia was carefully opened. The longus colli muscles were retracted to each side of the midline. A marker was placed at the disc space C5-6 and a cross-table lateral x-ray performed with a C-arm. SURGICAL DECOMPRESSION In order to decompress the anterior surface of the spinal cord it was necessary to preform a microsurgical resection of the disk at C5-6 and C6-7. At this point in the procedure the operating microscope was draped in the usual sterile fashion and brought to the field. The rest of the surgical procedure was performed using microdissection technique with the exception of the closure. Under the operative microscopic, a self-retaining retractor was placed underneath the longus colli muscle. Anterior osteophite spurs werte carefully removed with the Le[place]ell. The annulus at C5-6 and C6-7 were incised with a #15 blade and microdiscectomy was then carefully carried out using angled curets and pituitary forceps. There were osteophitic/disk complexes mass effect and compression of the dural sac and nerve roots. The posterior longitudinal ligament was then elevated with an angled curet and incised with a 15 bladed knife. A careful resection of the posterior longitudinal ligament was carried out using a thin footplate 2 mm Kerrison. A nerve hook was used to assess the epidural space behind the vertebral bodies C5, C6, and C7 in search for residual disk fragments. The margins of the posterior endplates at C5-6 and C6- 7 were carefully drilled and undercut with a TPS drill under high magnification. A large disk extrusion at C6-7 was seen. The decompression was then carried out laterally, and a bilateral foraminotomy was performed with a 2mm thin foot Kerrison. Then the vertebral bodies above and below the disk space were undercut using a 2 mm thin foot Kerrison. The epidural space was the systematically assessed with a nerve hook in search for disk fragments of scarr tissue. An excellent decompression was achieved in both, the dural sac and bilateral exiting nerve roots. The incision was then irrigated with a large amount of antibiotic solution INTERBODY ARTHRODHESIS In order to avoid collapse of the disk space which would result in bilateral foraminal stenosis, and to increase the chances of a successful fusion, it was necessary to place an interbody cage filled with autologous bone. At this point of the procedure, the superior and inferior endplates were then evenly decorticated with a TPS drill. The use of a drill in combination with a curette allowed me to systematically remove the cartilaginous endplates, exposing healthy bone for the interbody arthrodesis. Fourteen millimeters distraction pins were then placed at the vertebral bodies adjacent to the disk space, and gentle distraction was applied. The size of the interbody cage was then assessed using different size spacers, and a rasp was used to ensure no residual cartilage. A PEEK cage of the appropriate size was selected, and the interbody arthrodesis was then preformed by carefully impacting a PEEK cage filled with autologous bone graft to the disc spaces C5-6 and C6-7. An excellent position of the cage was achieved. This was was confirmed anatomically by feeling the space posterior to the implant and distance to the anterior surface of the dural sac. Radiological confirmation of the position was performed with a cross lateral xray performed with the C-arm. INTERNAL INSTRUMENTAL FIXATION Once that the interbody device was in an appropriate position, it was necessary to stabilize the spine with anterior instrumentation. Anterior instrumentation has demonstrated to increase the rate of fusion, accelerate the patient's recovery, and decrease the rate of failed interbody grafts. At this point of the procedure, the distance between the vertebral bodies was carefully measures, and a Simplicity plate was brought to the field and presented in front of the vertebral bodies C5, C6, and C7. Computer Builder holes were then drilled using the TPS drill, and the plate was then secured to the spine using self-drilling, self-tapping screws. Initially, the inferior right screw was inserted, followed by placement of the contralateral upper screw. The remanding screws were sequentially placed in a contra-lateral fashion. A proper purchase was achieved with all screws and the position of the cage, plate and screws, and alignment of the spine was assessed anatomically by direct visualization, and radiologically by performing a cross lateral xray of the cervical spine with the C-arm. CLOSURE The incision was irrigated with several liters of antibiotic solution. Hemostasis was achieved with a bipolar. The screws were locked to prevent backing out. A 7 mm [place] drain was left in the prevertebral space and externalized through a separate stab incision. The incision was then closed in layers. 3-0 Vicryl with interrupted sutures was used to close the platysma and subcutaneous tissue. The skin was closed with 4-0 running subcuticular Vicryl and glue was applied to the skin. The drain was secured with a 3-0 nylon. At the end of the procedure the sponge, needle and instrument counts were all correct. The estimated blood loss was less than 80 cc. No blood transfusion was given. No intraoperative complications occurred. The patient received prophylactic antibiotics. The patient was then extubated and transferred to the recovery room in stable condition. Kavon Ortiz MD March 01, 2017 21:54
[2017-03-01] MEDS: MORPHINE SULFATE 4 MG/ML INJ IV PUSH PRN (22:10)
[2017-03-02] VITALS (13 sets, daily range): BP systolic 101–149; BP diastolic 59–81; PULSE 64–82; RESP 11–24; TEMP 95.5–98.9; O2SAT 94–98
[2017-03-02] MEDS: DEXAMETHASONE SOD PHOS 4 MG/ML VIAL IV PUSH SCH ×5 (00:30→23:06)
[2017-03-02] MEDS: ACETAMINOPHEN/HYDROcodone 325 MG/10 MG TAB PO PRN ×4 (00:31→23:06)
[2017-03-02] MEDS: NS + KCL 20 MEQ INJ 1,000 ML IV SCH ×2 (00:31→12:20)
[2017-03-02] MEDS: MORPHINE SULFATE 4 MG/ML INJ IV PUSH PRN ×4 (02:50→16:07)
[2017-03-02] MEDS: ceFAZolin 2 GM PREMIX 50 ML IV SCH ×2 (06:17→13:14)
--- NOTE | 2017-03-02 08:54 | HHI.PR ---
Subjective Remarks in no acute distress. complaining of some pain to the left shoulder blade. says that his upper/lower extremity weakness has improved. Objective Vitals Vital Signs Date Time Temp Pulse Resp B/P Pulse Ox O2 Delivery O2 Flow Rate FiO2 03/02/17 06:22 15 03/02/17 06:00 82 03/02/17 04:00 98.9 74 15 101/59 94 03/02/17 04:00 74 03/02/17 02:00 68 03/02/17 01:31 14 03/02/17 00:00 98.8 78 15 119/74 95 03/01/17 23:00 73 16 131/69 97 Nasal Cannula 2 03/01/17 22:00 97.6 83 16 135/70 96 Nasal Cannula 2 03/01/17 21:00 81 14 121/69 98 Nasal Cannula 2 03/01/17 20:00 86 12 131/78 96 Nasal Cannula 2 03/01/17 19:45 98.1 84 15 133/80 95 Nasal Cannula 2 03/01/17 19:30 81 15 142/81 97 Nasal Cannula 3 03/01/17 19:15 85 14 139/87 97 Nasal Cannula 3 03/01/17 19:00 89 14 144/84 93 Nasal Cannula 3 03/01/17 18:45 97.5 95 12 153/89 97 Nasal Cannula 4 03/01/17 12:30 73 14 117/58 95 Room Air 03/01/17 09:30 64 20 129/73 97 Room Air I/O 03/01/17 03/01/17 03/01/17 03/02/17 03/02/17 03/02/17 07:00 15:00 23:00 07:00 15:00 23:00 Intake Total 2297 ml 2266 ml Output Total 1680 ml 1500 ml Balance 617 ml 766 ml Intake Oral 797 ml 960 ml IV Total 0 ml 1306 ml Other 1500 ml Output Urine Total 1385 ml 1500 ml Stool Total 0 ml Drainage Total 20 ml Estimated Blood Loss 100 ml Other 175 ml Result Diagram: 03/01/17 0834 03/01/17 0834 Imaging Last Impressions Thoracic Spine MRI 03/01/17 0000 Signed Impressions: Service Date/Time: Wednesday, March 01, 2017 11:52 - CONCLUSION: 1. Thoracic scoliosis with mild degenerative change. However, no significant spinal canal stenosis or neural foraminal narrowing is identified. 2. There are space opacities at both lung bases and suspected enlarged mediastinal lymph nodes. Consider chest CT with IV contrast for further evaluation. Dg Harden MD Pelvis X-Ray 03/01/17 Signed Impressions: Service Date/Time: Wednesday, March 01, 2017 08:27 - CONCLUSION: Unremarkable examination of the pelvis. Dg Alberto MD Lumbar Spine MRI 03/01/17 Signed Impressions: Service Date/Time: Wednesday, March 01, 2017 09:00 - CONCLUSION: 1. There is a left paracentral disc extrusion at L1-L2 completely effacing left lateral recess. There is mass effect on the adjacent nerve roots. 2. There is mild spinal canal stenosis at L3-L4 secondary to disc bulge and facet and ligamentum flavum hypertrophy. Please see above for detailed description of each level. Dg Harden MD Cervical Spine X-Ray 03/01/17 Signed Impressions: Service Date/Time: Wednesday, March 01, 2017 14:55 - CONCLUSION: Discectomy and fusion procedure at C5/C6. No acute abnormality demonstrated. Dg Caldwell MD Cervical Spine MRI 03/01/17 Signed Impressions: Service Date/Time: Wednesday, March 01, 2017 11:52 - CONCLUSION: Severe degenerative change of the cervical spine with severe spinal canal stenosis at C6-C7 secondary primarily to an extruded disc. There is also spinal canal stenosis at C3-C4 and C5-C6. Areas of neural foraminal narrowing are also present, as above. Dg Harden MD Objective Remarks GENERAL: This is a well-nourished, well-developed patient, in no apparent distress. Neck; in cervical collar CARDIOVASCULAR: Regular rate and regular rhythm without murmurs, gallops, or rubs. RESPIRATORY: Clear to auscultation. Breath sounds equal bilaterally. No wheezes , rales, or rhonchi. GASTROINTESTINAL: Abdomen soft, non-tender, nondistended. Normal, active bowel sounds MUSCULOSKELETAL: Extremities without clubbing, cyanosis, or edema. NEURO: Alert & Oriented x4 to person, place, time, situation. Moves all ext x4 Procedures C5-6, C6-7 anterior cervical discectomy Medications and IVs Current Medications Morphine Sulfate (Morphine Inj) 4 mg ONCE ONCE IV PUSH Last administered on 08:40; Start 03/01/17 at 08:30; Stop 03/01/17 at 08:31; Status DC Ondansetron HCl (Zofran Inj) 4 mg ONCE ONCE IV PUSH Last administered on 08:40; Start 03/01/17 at 08:30; Stop 03/01/17 at 08:31; Status DC Gadodiamide (Omniscan Pf Inj) 20 ml STK-MED ONCE IV Last administered on 09:27; Start 03/01/17 at 09:27; Stop 03/01/17 at 09:28; Status DC Morphine Sulfate (Morphine Inj) 2 mg Q4H PRN IV PUSH PAIN SCALE 6 TO 10 Last administered on 03/01/17 11:32; Start 03/01/17 at 11:30; Stop 03/01/17 at 15:54; Status DC Dexamethasone Sodium Phosphate (Decadron Inj) 8 mg ONCE ONCE IV PUSH Last administered on 03/01/17 11:32; Start 03/01/17 at 11:30; Stop 03/01/17 at 11:31; Status DC Dexamethasone (Decadron) 4 mg ONCE ONCE PO ; Start 03/01/17 at 11:30; Stop at 11:31; Status DC Ondansetron HCl 4 mg 4 mg Q8H PRN IV PUSH NAUSEA Last administered on 03/02/17 00:30; Start 03/01/17 at 12:00 Sodium Chloride 1,000 ml @ 100 mls/hr Q10H IV ; Start 03/01/17 at 12:00; Stop at 15:55; Status DC Sodium Chloride 1,000 ml @ 100 mls/hr Q10H IV ; Start 03/01/17 at 12:39; Stop at 15:55; Status DC Cefazolin Sodium/ Dextrose 50 ml @ 150 mls/hr CALCULUS TEACHER IV Last administered on 03/01/17 12:59; Start 03/01/17 at 12:45; Stop 03/02/17 at 12:44 Vancomycin HCl/ Sodium Chloride (Vancomycin Inj/ NS 250 ml Inj) 250 ml @ 250 mls/hr CALCULUS TEACHER IV Last administered on 03/01/17 13:50; Start 03/01/17 at 12:45 ; Stop 03/02/17 at 12:44 Artificial Tears (Lacrilube Opht Oint) 3.5 applic STK-MED ONCE .ROUTE ; Start at 14:20; Stop 03/01/17 at 14:21; Status DC Midazolam HCl (Versed Inj) 2 mg STK-MED ONCE .ROUTE ; Start 03/01/17 at 14:20; Stop 03/01/17 at 14:21; Status DC Fentanyl Citrate (fentaNYL INJ) 250 mcg STK-MED ONCE .ROUTE ; Start 03/01/17 at 14:20; Stop 03/01/17 at 14:21; Status DC Fentanyl Citrate (fentaNYL INJ) 250 mcg STK-MED ONCE .ROUTE ; Start 03/01/17 at 14:20; Stop 03/01/17 at 14:21; Status DC Famotidine (Pepcid Inj) 20 mg STK-MED ONCE .ROUTE ; Start 03/01/17 at 14:21; Stop 03/01/17 at 14:22; Status DC Microfibriller Collagen Hemostat (Avitene Bandage) 1 bandage STK-MED ONCE .ROUTE Last administered on 03/01/17 16:48; Start 03/01/17 at 14:21; Stop at 14:22; Status DC Thrombin (Thrombin Top Soln) 10,000 units STK-MED ONCE .ROUTE Last administered on 03/01/17 16:48; Start 03/01/17 at 14:21; Stop 03/01/17 at 14:22; Status DC Gelatin (Gelfoam 100 Top) 1 foam STK-MED ONCE .ROUTE Last administered on 16:47; Start 03/01/17 at 14:21; Stop 03/01/17 at 14:22; Status DC Gentamicin Sulfate 240 mg 240 mg STK-MED ONCE .ROUTE Last administered on 15:56; Start 03/01/17 at 14:22; Stop 03/01/17 at 14:23; Status DC Potassium Chloride/Sodium Chloride (NS + KCl 20 Meq Inj) 1,000 ml @ 100 mls/hr Q10H IV Last administered on 03/02/17 00:31; Start 03/01/17 at 16:00 IV Flush (NS Flush) 2 ml UNSCH PRN IVF FLUSH AFTER USING IV ACCESS Last administered on 03/02/17 00:31; Start 03/01/17 at 15:45 IV Flush 2 ml 2 ml BID IVF Last administered on 03/01/17 20:01; Start 03/01/17 at 21:00 Cefazolin Sodium/ Dextrose (Ancef 2 Gm Premix) 50 ml @ 100 mls/hr Q8H IV Last administered on 03/02/17 06:17; Start 03/01/17 at 21:00; Stop 03/02/17 at 13:29 Docusate Sodium (Colace) 100 mg BID PO Last administered on 03/01/17 20:54; Start 03/01/17 at 21:00 Pantoprazole Sodium (Protonix) 40 mg DAILY PO ; Start 03/02/17 at 09:00 Acetaminophen/ Hydrocodone Bitart ([place] 10-325 Mg) 1 tab Q4H PRN PO SEE LABEL COMMENTS Last administered on 03/02/17 00:31; Start 03/01/17 at 16:00 Acetaminophen/ Hydrocodone Bitart ([place] 10-325 Mg) 2 tab Q4H PRN PO SEE LABEL COMMENTS; Start 03/01/17 at 16:00 Morphine Sulfate (Morphine Inj) 2 mg Q2H PRN IV PUSH SEE LABEL COMMENTS; Start 03/01/17 at 16:00 Morphine Sulfate (Morphine Inj) 4 mg Q2H PRN IV PUSH SEE LABEL COMMENTS Last administered on 03/02/17 06:17; Start 03/01/17 at 16:00 Acetaminophen (Tylenol) 650 mg Q4H PRN PO TEMPERATURE > 101.5 F; Start 03/01/17 at 16:00 Cefazolin Sodium (Ancef Inj) 1,000 mg STK-MED ONCE IV ; Start 03/01/17 at 17:00; Stop 03/01/17 at 17:01; Status Cancel Dexamethasone Sodium Phosphate (Decadron Inj) 4 mg Q6HR IV PUSH Last administered on 03/02/17 06:17; Start 03/01/17 at 18:45 Cefazolin Sodium (Ancef Inj) 2,000 mg STK-MED ONCE IV Last administered on 17:00; Start 03/01/17 at 17:00; Stop 03/01/17 at 18:36; Status DC Morphine Sulfate (*morphine INJ PERIprocedure ONLY) 8 mg STK-MED ONCE .ROUTE Last administered on 03/01/17 19:16; Start 03/01/17 at 19:16; Stop 03/01/17 at 19: 17; Status DC Morphine Sulfate (*morphine INJ PERIprocedure ONLY) 8 mg STK-MED ONCE .ROUTE Last administered on 03/01/17 19:37; Start 03/01/17 at 19:37; Stop 03/01/17 at 19: 38; Status DC Diphenhydramine HCl (Benadryl Inj) 50 mg STK-MED ONCE .ROUTE Last administered on 03/01/17 20:42; Start 03/01/17 at 20:42; Stop 03/01/17 at 20:43; Status DC A/P Assessment and Plan A/P - bilateral lower extremity / left upper extremity weakness lumbar spine MRI with disc protrusion at L1-2 level/ cervical MRI with severe spinal stenosis C5-6 s/p C5-6, C6-7 anterior cervical discectomy continue with pain control and IV steroids neurosurgery following- -history of 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
[2017-03-02] MEDS: PANTOPRAZOLE SOD 40 MG DELAYED RELEASE TAB PO SCH (09:06)
[2017-03-02] MEDS: DOCUSATE SODIUM 100 MG CAP PO SCH ×2 (09:06→21:30)
[2017-03-02] MEDS: SODIUM CHLORIDE 0.9% FLUSH 5 ML FLUSH IVF SCH ×2 (09:06→21:00)
--- NOTE | 2017-03-02 10:28 | EKG ---
Date Performed: 03/01/2017 Time Performed: 12:59:59 PTAGE: 46 years EKG: SINUS BRADYCARDIA BORDERLINE ECG NO PREVIOUS TRACING DOCTOR: Maxine Berger Interpretating Date/Time 03/02/2017 10:26:54
[2017-03-02] MEDS ORDERED: MAGNESIUM CITRATE SOLN 300 ML BTL PO ONE (11:00)
--- NOTE | 2017-03-02 12:29 | HHI.NSPN ---
(Ashely Alford) Note Status Status: Progress Note (Ashely Alford) Interval History Interval History Mr. Vázquez is a 46-year-old male who presents to the ED today with complaints of severe lower extremity weakness. Mr. Vázquez reports he has been suffering from progressive lower extremity weakness for the past 2 months. He has come to the point where he is unable to ambulate. He reports of pain located in the bilateral upper thigh. He denies any associated falls or trauma. He reports of minimal cervical discomfort. He reports of some numbness in his left fingers. He also feels some weakness in his upper extremities. He denies bowel or bladder incontinence, fevers, chills. He denies IV drug use He underwent an emergent C5-6, C6-7 anterior cervical discectomy with arthrodesis on 03/01/1703/02: POD 1: Doing well in intensive surgical care unit. Reports stable neurological function. Complains of moderate lumbar pain. (Ashely Alford) Labs, Micro, & Vital Signs Results Date Time Temp Pulse Resp B/P Pulse Ox O2 Delivery O2 Flow Rate FiO2 03/02/17 12:00 98.0 64 11 123/68 94 03/02/17 12:00 73 03/02/17 10:00 66 03/02/17 08:00 69 03/02/17 08:00 97.9 70 24 149/66 94 03/02/17 07:00 95 Nasal Cannula 2.00 03/02/17 06:22 15 03/02/17 06:00 82 03/02/17 04:00 98.9 74 15 101/59 94 03/02/17 04:00 74 03/02/17 02:00 68 03/02/17 01:31 14 03/02/17 00:00 98.8 78 15 119/74 95 03/01/17 23:00 73 16 131/69 97 Nasal Cannula 2 03/01/17 22:00 97.6 83 16 135/70 96 Nasal Cannula 2 03/01/17 21:00 81 14 121/69 98 Nasal Cannula 2 03/01/17 20:00 86 12 131/78 96 Nasal Cannula 2 03/01/17 19:45 98.1 84 15 133/80 95 Nasal Cannula 2 03/01/17 19:30 81 15 142/81 97 Nasal Cannula 3 03/01/17 19:15 85 14 139/87 97 Nasal Cannula 3 03/01/17 19:00 89 14 144/84 93 Nasal Cannula 3 03/01/17 18:45 97.5 95 12 153/89 97 Nasal Cannula 4 03/01/17 12:30 73 14 117/58 95 Room Air 03/02/17 07:00 Intake Total 4563 ml Output Total 3180 ml Balance 1383 ml Constitutional Vital Signs Date Time Temp Pulse Resp B/P Pulse Ox O2 Delivery O2 Flow Rate FiO2 03/02/17 12:00 98.0 64 11 123/68 94 03/02/17 12:00 73 03/02/17 10:00 66 03/02/17 08:00 69 03/02/17 08:00 97.9 70 24 149/66 94 03/02/17 07:00 95 Nasal Cannula 2.00 03/02/17 06:22 15 03/02/17 06:00 82 03/02/17 04:00 98.9 74 15 101/59 94 03/02/17 04:00 74 03/02/17 02:00 68 03/02/17 01:31 14 03/02/17 00:00 98.8 78 15 119/74 95 03/01/17 23:00 73 16 131/69 97 Nasal Cannula 2 03/01/17 22:00 97.6 83 16 135/70 96 Nasal Cannula 2 03/01/17 21:00 81 14 121/69 98 Nasal Cannula 2 03/01/17 20:00 86 12 131/78 96 Nasal Cannula 2 03/01/17 19:45 98.1 84 15 133/80 95 Nasal Cannula 2 03/01/17 19:30 81 15 142/81 97 Nasal Cannula 3 03/01/17 19:15 85 14 139/87 97 Nasal Cannula 3 03/01/17 19:00 89 14 144/84 93 Nasal Cannula 3 03/01/17 18:45 97.5 95 12 153/89 97 Nasal Cannula 4 03/01/17 12:30 73 14 117/58 95 Room Air 03/02/17 07:00 Intake Total 4563 ml Output Total 3180 ml Balance 1383 ml (Ashely Alford) Review of Systems/Exam Exam Mr. Vázquez is alert, awake and oriented to time, place and person. Speech is fluent. Cervical wound is clean and dry with dressing in place, SJ drain in place Cranial nerve examination demonstrates the pupils to be equal, round, and reactive to light. Extra-ocular movements are intact. Neck immobilized by cervical collar. Muscle testing reveals hypertonicity in the lower extremities. Muscle strength is 5/5 in bilateral deltoid, 5-/5 right biceps, 4+/5 left biceps, 4/5 bilateral triceps, and telecommunications administrator. In the lower extremities, strength is 2 to 3 /5 in both iliopsoas, quadriceps, hamstrings, 4/5 plantar flexion, dorsiflexion, and extensor hallicus longus. Sensory examination is intact to light touch in both the upper and lower extremities, symmetrically. Deep tendon reflexes: 2+ left patellar, 3+ brisk right patellar. There is a bilateral Babinski response. (Ashely Alford) Medications Current Medications Current Medications Medications (Trade) Dose Ordered Sig/Jon Route PRN Reason Start Time Stop Time Status Last Admin Dose Admin Ondansetron HCl 4 mg 4 mg Q8H PRN IV PUSH NAUSEA 03/01/17 12:00 03/02/17 00:30 Potassium Chloride/Sodium Chloride (NS + KCl 20 Meq Inj) 1,000 ml @ 60 mls/hr [id number] IV 03/01/17 16:00 03/02/17 12:20 IV Flush (NS Flush) 2 ml UNSCH PRN IVF FLUSH AFTER USING IV ACCESS 03/01/17 15:45 03/02/17 00:31 IV Flush 2 ml 2 ml BID IVF 03/01/17 21:00 03/02/17 09:06 Cefazolin Sodium/ Dextrose (Ancef 2 Gm Premix) 50 ml @ 100 mls/hr Q8H IV 03/01/17 21:00 03/02/17 13:29 03/02/17 06:17 Docusate Sodium (Colace) 100 mg BID PO 03/01/17 21:00 03/02/17 09:06 Pantoprazole Sodium (Protonix) 40 mg DAILY PO 03/02/17 09:00 03/02/17 09:06 Acetaminophen/ Hydrocodone Bitart ([place] 10-325 Mg) 1 tab Q4H PRN PO SEE LABEL COMMENTS 03/01/17 16:00 03/02/17 00:31 Acetaminophen/ Hydrocodone Bitart ([place] 10-325 Mg) 2 tab Q4H PRN PO SEE LABEL COMMENTS 03/01/17 16:00 03/02/17 10:25 Morphine Sulfate (Morphine Inj) 2 mg Q2H PRN IV PUSH SEE LABEL COMMENTS 03/01/17 16:00 Morphine Sulfate (Morphine Inj) 4 mg Q2H PRN IV PUSH SEE LABEL COMMENTS 03/01/17 16:00 03/02/17 09:37 Acetaminophen (Tylenol) 650 mg Q4H PRN PO TEMPERATURE > 101.5 F 03/01/17 16:00 Dexamethasone Sodium Phosphate (Decadron Inj) 4 mg Q6HR IV PUSH 03/01/17 18:45 03/02/17 11:09 (Ashely Alford) Medical Decision Making MDM Remarks 46-year-old male who presented to the ED with progressive quadriparesis, his MRI C-spine showed disc herniation with severe canal stenosis, cord compression status post C5-6, C6-7 ACDF (Ashely Alford) Plan Plan Remarks neuro stable maintain cervical collar continue PT, consult OT clear to transfer out a unit continue pain regimen he will need inpatient rehabilitation upon discharge nonchemical DVT prophylaxis with SCDs and TEDs (Ashely Alford) Attending Statement The exam, history, and the medical decision-making described in the above note were completed with the assistance of the mid-level provider. I reviewed and agree with the findings presented. I attest that I had a [id number] encounter with the patient on the same day, and personally performed and documented my assessment and findings in the medical record. (Kavon Ortiz MD) Ashely Alford March 02, 2017 12:28 Kavon Ortiz MD March 03, 2017 21:08
[2017-03-02] MEDS: RESP: ALBUTEROL 2.5 MG/IPRATROPIUM 0.5 MG NEB (PRN) NEB ×2 (15:06→20:32)
[2017-03-03] VITALS: BP 129/77; PULSE 62; RESP 20; TEMP 96.3; O2SAT 95
[2017-03-03] MEDS: ACETAMINOPHEN/HYDROcodone 325 MG/10 MG TAB PO PRN ×5 (03:03→21:15)
[2017-03-03 04:00] VITALS: BP 133/79; PULSE 72; RESP 18; TEMP 95.5; O2SAT 96
[2017-03-03] MEDS: NS + KCL 20 MEQ INJ 1,000 ML IV SCH (04:42)
[2017-03-03] MEDS: DEXAMETHASONE SOD PHOS 4 MG/ML VIAL IV PUSH SCH ×3 (05:46→17:19)
[2017-03-03 08:00] VITALS: BP 121/65; PULSE 74; RESP 18; TEMP 95.5; O2SAT 98
[2017-03-03] MEDS: DOCUSATE SODIUM 100 MG CAP PO SCH ×2 (08:34→21:15)
[2017-03-03] MEDS: PANTOPRAZOLE SOD 40 MG DELAYED RELEASE TAB PO SCH (08:34)
[2017-03-03] MEDS: SODIUM CHLORIDE 0.9% FLUSH 5 ML FLUSH IVF SCH ×2 (08:35→21:00)
--- NOTE | 2017-03-03 08:52 | HHI.PR ---
Subjective Remarks in no acute distress. complaining of moderate back and neck pain. no BM. d/w the RN and no other acute issues over night. Objective Vitals Vital Signs Date Time Temp Pulse Resp B/P Pulse Ox O2 Delivery O2 Flow Rate FiO2 03/03/17 04:00 95.5 72 18 133/79 96 03/03/17 02:08 Room Air 03/03/17 00:00 96.3 62 20 129/77 95 03/02/17 20:34 95 Nasal Cannula 2.00 03/02/17 20:00 96.0 68 20 126/75 95 03/02/17 18:17 98 Nasal Cannula 2.00 03/02/17 18:14 95.5 76 19 140/81 98 03/02/17 16:00 98.1 81 19 129/73 94 03/02/17 16:00 81 03/02/17 15:09 97 Nasal Cannula 2.00 03/02/17 14:00 67 03/02/17 12:00 98.0 64 11 123/68 94 03/02/17 12:00 73 03/02/17 10:00 66 I/O 03/02/17 03/02/17 03/02/17 03/03/17 03/03/17 03/03/17 07:00 15:00 23:00 07:00 15:00 23:00 Intake Total 2266 ml 985 ml 620 ml Output Total 1500 ml 910 ml 1030 ml Balance 766 ml 75 ml -1030 ml 620 ml Intake Oral 960 ml 450 ml IV Total 1306 ml 535 ml 620 ml Output Urine Total 1500 ml 900 ml 1000 ml Stool Total 0 ml 0 ml Drainage Total 10 ml 30 ml # Bowel Movements 1 Result Diagram: 03/01/17 0834 03/01/17 0834 Imaging Last Impressions Thoracic Spine MRI 03/01/17 Signed Impressions: Service Date/Time: Wednesday, March 01, 2017 11:52 - CONCLUSION: 1. Thoracic scoliosis with mild degenerative change. However, no significant spinal canal stenosis or neural foraminal narrowing is identified. 2. There are space opacities at both lung bases and suspected enlarged mediastinal lymph nodes. Consider chest CT with IV contrast for further evaluation. Dg Harden MD Pelvis X-Ray 03/01/17 0000 Signed Impressions: Service Date/Time: Wednesday, March 01, 2017 08:27 - CONCLUSION: Unremarkable examination of the pelvis. Dg Alberto MD Lumbar Spine MRI 03/01/17 0000 Signed Impressions: Service Date/Time: Wednesday, March 01, 2017 09:00 - CONCLUSION: 1. There is a left paracentral disc extrusion at L1-L2 completely effacing left lateral recess. There is mass effect on the adjacent nerve roots. 2. There is mild spinal canal stenosis at L3-L4 secondary to disc bulge and facet and ligamentum flavum hypertrophy. Please see above for detailed description of each level. Dg Harden MD Cervical Spine X-Ray 03/01/17 Signed Impressions: Service Date/Time: Wednesday, March 01, 2017 14:55 - CONCLUSION: Discectomy and fusion procedure at C5/C6. No acute abnormality demonstrated. Dg Caldwell MD Cervical Spine MRI 03/01/17 Signed Impressions: Service Date/Time: Wednesday, March 01, 2017 11:52 - CONCLUSION: Severe degenerative change of the cervical spine with severe spinal canal stenosis at C6-C7 secondary primarily to an extruded disc. There is also spinal canal stenosis at C3-C4 and C5-C6. Areas of neural foraminal narrowing are also present, as above. Dg Harden MD Objective Remarks GENERAL: This is a well-nourished, well-developed patient, in no apparent distress. Neck; in cervical collar CARDIOVASCULAR: Regular rate and regular rhythm without murmurs, gallops, or rubs. RESPIRATORY: Clear to auscultation. Breath sounds equal bilaterally. No wheezes , rales, or rhonchi. GASTROINTESTINAL: Abdomen soft, non-tender, nondistended. Normal, active bowel sounds MUSCULOSKELETAL: Extremities without clubbing, cyanosis, or edema. NEURO: Alert & Oriented x4 to person, place, time, situation. Moves all ext x4 Procedures C5-6, C6-7 anterior cervical discectomy Medications and IVs Current Medications Morphine Sulfate (Morphine Inj) 4 mg ONCE ONCE IV PUSH Last administered on 08:40; Start 03/01/17 at 08:30; Stop 03/01/17 at 08:31; Status DC Ondansetron HCl (Zofran Inj) 4 mg ONCE ONCE IV PUSH Last administered on 08:40; Start 03/01/17 at 08:30; Stop 03/01/17 at 08:31; Status DC Gadodiamide (Omniscan Pf Inj) 20 ml STK-MED ONCE IV Last administered on 09:27; Start 03/01/17 at 09:27; Stop 03/01/17 at 09:28; Status DC Morphine Sulfate (Morphine Inj) 2 mg Q4H PRN IV PUSH PAIN SCALE 6 TO 10 Last administered on 03/01/17 11:32; Start 03/01/17 at 11:30; Stop 03/01/17 at 15:54; Status DC Dexamethasone Sodium Phosphate (Decadron Inj) 8 mg ONCE ONCE IV PUSH Last administered on 03/01/17 11:32; Start 03/01/17 at 11:30; Stop 03/01/17 at 11:31; Status DC Dexamethasone (Decadron) 4 mg ONCE ONCE PO ; Start 03/01/17 at 11:30; Stop at 11:31; Status DC Ondansetron HCl 4 mg 4 mg Q8H PRN IV PUSH NAUSEA Last administered on 03/02/17 00:30; Start 03/01/17 at 12:00 Sodium Chloride 1,000 ml @ 100 mls/hr Q10H IV ; Start 03/01/17 at 12:00; Stop at 15:55; Status DC Sodium Chloride 1,000 ml @ 100 mls/hr Q10H IV ; Start 03/01/17 at 12:39; Stop at 15:55; Status DC Cefazolin Sodium/ Dextrose 50 ml @ 150 mls/hr CHEMICALS DISTILLER IV Last administered on 03/01/17 12:59; Start 03/01/17 at 12:45; Stop 03/02/17 at 12:44; Status DC Vancomycin HCl/ Sodium Chloride (Vancomycin Inj/ NS 250 ml Inj) 250 ml @ 250 mls/hr CHEMICALS DISTILLER IV Last administered on 03/01/17 13:50; Start 03/01/17 at 12:45 ; Stop 03/02/17 at 12:44; Status DC Artificial Tears (Lacrilube Opht Oint) 3.5 applic STK-MED ONCE .ROUTE ; Start at 14:20; Stop 03/01/17 at 14:21; Status DC Midazolam HCl (Versed Inj) 2 mg STK-MED ONCE .ROUTE ; Start 03/01/17 at 14:20; Stop 03/01/17 at 14:21; Status DC Fentanyl Citrate (fentaNYL INJ) 250 mcg STK-MED ONCE .ROUTE ; Start 03/01/17 at 14:20; Stop 03/01/17 at 14:21; Status DC Fentanyl Citrate (fentaNYL INJ) 250 mcg STK-MED ONCE .ROUTE ; Start 03/01/17 at 14:20; Stop 03/01/17 at 14:21; Status DC Famotidine (Pepcid Inj) 20 mg STK-MED ONCE .ROUTE ; Start 03/01/17 at 14:21; Stop 03/01/17 at 14:22; Status DC Microfibriller Collagen Hemostat (Avitene Bandage) 1 bandage STK-MED ONCE .ROUTE Last administered on 03/01/17 16:48; Start 03/01/17 at 14:21; Stop at 14:22; Status DC Thrombin (Thrombin Top Soln) 10,000 units STK-MED ONCE .ROUTE Last administered on 03/01/17 16:48; Start 03/01/17 at 14:21; Stop 03/01/17 at 14:22; Status DC Gelatin (Gelfoam 100 Top) 1 foam STK-MED ONCE .ROUTE Last administered on 16:47; Start 03/01/17 at 14:21; Stop 03/01/17 at 14:22; Status DC Gentamicin Sulfate 240 mg 240 mg STK-MED ONCE .ROUTE Last administered on 15:56; Start 03/01/17 at 14:22; Stop 03/01/17 at 14:23; Status DC Potassium Chloride/Sodium Chloride (NS + KCl 20 Meq Inj) 1,000 ml @ 60 mls/hr [id number] IV Last administered on 03/03/17 04:42; Start 03/01/17 at 16:00 IV Flush (NS Flush) 2 ml UNSCH PRN IVF FLUSH AFTER USING IV ACCESS Last administered on 03/02/17 00:31; Start 03/01/17 at 15:45 IV Flush 2 ml 2 ml BID IVF Last administered on 03/03/17 08:35; Start 03/01/17 at 21:00 Cefazolin Sodium/ Dextrose (Ancef 2 Gm Premix) 50 ml @ 100 mls/hr Q8H IV Last administered on 03/02/17 13:14; Start 03/01/17 at 21:00; Stop 03/02/17 at 13:29; Status DC Docusate Sodium (Colace) 100 mg BID PO Last administered on 03/03/17 08:34; Start 03/01/17 at 21:00 Pantoprazole Sodium (Protonix) 40 mg DAILY PO Last administered on 03/03/17 08: 34; Start 03/02/17 at 09:00 Acetaminophen/ Hydrocodone Bitart ([place] 10-325 Mg) 1 tab Q4H PRN PO SEE LABEL COMMENTS Last administered on 03/02/17 00:31; Start 03/01/17 at 16:00 Acetaminophen/ Hydrocodone Bitart ([place] 10-325 Mg) 2 tab Q4H PRN PO SEE LABEL COMMENTS Last administered on 03/03/17 06:47; Start 03/01/17 at 16:00 Morphine Sulfate (Morphine Inj) 2 mg Q2H PRN IV PUSH SEE LABEL COMMENTS; Start 03/01/17 at 16:00 Morphine Sulfate (Morphine Inj) 4 mg Q2H PRN IV PUSH SEE LABEL COMMENTS Last administered on 03/02/17 16:07; Start 03/01/17 at 16:00 Acetaminophen (Tylenol) 650 mg Q4H PRN PO TEMPERATURE > 101.5 F; Start 03/01/17 at 16:00 Cefazolin Sodium (Ancef Inj) 1,000 mg STK-MED ONCE IV ; Start 03/01/17 at 17:00; Stop 03/01/17 at 17:01; Status Cancel Dexamethasone Sodium Phosphate (Decadron Inj) 4 mg Q6HR IV PUSH Last administered on 03/03/17 05:46; Start 03/01/17 at 18:45 Cefazolin Sodium (Ancef Inj) 2,000 mg STK-MED ONCE IV Last administered on 17:00; Start 03/01/17 at 17:00; Stop 03/01/17 at 18:36; Status DC Morphine Sulfate (*morphine INJ PERIprocedure ONLY) 8 mg STK-MED ONCE .ROUTE Last administered on 03/01/17 19:16; Start 03/01/17 at 19:16; Stop 03/01/17 at 19: 17; Status DC Morphine Sulfate (*morphine INJ PERIprocedure ONLY) 8 mg STK-MED ONCE .ROUTE Last administered on 03/01/17 19:37; Start 03/01/17 at 19:37; Stop 03/01/17 at 19: 38; Status DC Diphenhydramine HCl (Benadryl Inj) 50 mg STK-MED ONCE .ROUTE Last administered on 03/01/17 20:42; Start 03/01/17 at 20:42; Stop 03/01/17 at 20:43; Status DC Magnesium Citrate (Citroma Liq) 300 ml ONCE ONCE PO Last administered on 11:09; Start 03/02/17 at 11:00; Stop 03/02/17 at 11:01; Status DC Albuterol/ Ipratropium (Duoneb Neb) 1 ampule Q4HR NEB PRN NEB SHORTNESS OF BREATH Last administered on 03/02/17 20:32; Start 03/02/17 at 12:15 A/P Assessment and Plan A/P - bilateral lower extremity / left upper extremity weakness lumbar spine MRI with disc protrusion at L1-2 level/ cervical MRI with severe spinal stenosis C5-6 s/p C5-6, C6-7 anterior cervical discectomy continue with pain control and rehab efforts- on IV steroids neurosurgery following- -constipation; laxatives as needed. -history of testicular cancer in remote past -DVT prophylaxis with SCD's Discharge Planning dc to rehab when cleared by neurosurgery. Gerard Goff MD March 03, 2017 08:52
[2017-03-03] MEDS: HYDROmorphone HCL PF 1 MG/ML VIAL IV PUSH PRN (09:14)
--- NOTE | 2017-03-03 11:22 | HHI.NSPN ---
(Ashely Alford) Note Status Status: Progress Note (Ashely Alford) Interval History Interval History Mr. Vázquez is a 46-year-old male who presents to the ED today with complaints of severe lower extremity weakness. Mr. Vázquez reports he has been suffering from progressive lower extremity weakness for the past 2 months. He has come to the point where he is unable to ambulate. He reports of pain located in the bilateral upper thigh. He denies any associated falls or trauma. He reports of minimal cervical discomfort. He reports of some numbness in his left fingers. He also feels some weakness in his upper extremities. He denies bowel or bladder incontinence, fevers, chills. He denies IV drug use He underwent an emergent C5-6, C6-7 anterior cervical discectomy with arthrodesis on 03/01/1703/02: POD 1: Doing well in intensive surgical care unit. Reports stable neurological function. Complains of moderate lumbar pain. 03/03: POD 2, Sitting up in chair, a bit better today, eager for rehab. (Ashely Alford) Labs, Micro, & Vital Signs Results Date Time Temp Pulse Resp B/P Pulse Ox O2 Delivery O2 Flow Rate FiO2 03/03/17 08:00 95.5 74 18 121/65 98 03/03/17 04:00 95.5 72 18 133/79 96 03/03/17 02:08 Room Air 03/03/17 00:00 96.3 62 20 129/77 95 03/02/17 20:34 95 Nasal Cannula 2.00 03/02/17 20:00 96.0 68 20 126/75 95 03/02/17 18:17 98 Nasal Cannula 2.00 03/02/17 18:14 95.5 76 19 140/81 98 03/02/17 16:00 98.1 81 19 129/73 94 03/02/17 16:00 81 03/02/17 15:09 97 Nasal Cannula 2.00 03/02/17 14:00 67 03/02/17 12:00 98.0 64 11 123/68 94 03/02/17 12:00 73 03/03/17 07:00 Intake Total 985 ml Output Total 1940 ml Balance -955 ml Constitutional Vital Signs Date Time Temp Pulse Resp B/P Pulse Ox O2 Delivery O2 Flow Rate FiO2 03/03/17 08:00 95.5 74 18 121/65 98 03/03/17 04:00 95.5 72 18 133/79 96 03/03/17 02:08 Room Air 03/03/17 00:00 96.3 62 20 129/77 95 03/02/17 20:34 95 Nasal Cannula 2.00 03/02/17 20:00 96.0 68 20 126/75 95 03/02/17 18:17 98 Nasal Cannula 2.00 03/02/17 18:14 95.5 76 19 140/81 98 03/02/17 16:00 98.1 81 19 129/73 94 03/02/17 16:00 81 03/02/17 15:09 97 Nasal Cannula 2.00 03/02/17 14:00 67 03/02/17 12:00 98.0 64 11 123/68 94 03/02/17 12:00 73 03/03/17 07:00 Intake Total 985 ml Output Total 1940 ml Balance -955 ml (Ashely Alford) Review of Systems/Exam Exam Mr. Vázquez is alert, awake and oriented to time, place and person. Speech is appropriate. Cervical wound is clean and dry with dressing in place, SJ drain in place with minimal drainage. Cranial nerve examination: pupils to be equal, round, and reactive to light. Extra-ocular movements are intact. Neck immobilized by cervical collar. 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 In the lower extremities, strength is 3/5 in both iliopsoas, quadriceps, hamstrings, 4/5 plantar flexion, dorsiflexion, and extensor hallicus longus. Sensory examination is intact to light touch in both the upper and lower extremities, symmetrically. Deep tendon reflexes: 2+ left patellar, 3+ brisk right patellar. There is a bilateral Babinski response. (Ashely Alford) Medications Current Medications Current Medications Medications (Trade) Dose Ordered Sig/Jon Route PRN Reason Start Time Stop Time Status Last Admin Dose Admin Ondansetron HCl 4 mg 4 mg Q8H PRN IV PUSH NAUSEA 03/01/17 12:00 03/02/17 00:30 Potassium Chloride/Sodium Chloride (NS + KCl 20 Meq Inj) 1,000 ml @ 60 mls/hr [id number] IV 03/01/17 16:00 03/03/17 04:42 IV Flush (NS Flush) 2 ml UNSCH PRN IVF FLUSH AFTER USING IV ACCESS 03/01/17 15:45 03/02/17 00:31 IV Flush (NS Flush) 2 ml BID IVF 03/01/17 21:00 03/03/17 08:35 Docusate Sodium (Colace) 100 mg BID PO 03/01/17 21:00 03/03/17 08:34 Pantoprazole Sodium (Protonix) 40 mg DAILY PO 03/02/17 09:00 03/03/17 08:34 Acetaminophen/ Hydrocodone Bitart ([place] 10-325 Mg) 1 tab Q4H PRN PO SEE LABEL COMMENTS 03/01/17 16:00 03/02/17 00:31 Acetaminophen/ Hydrocodone Bitart ([place] 10-325 Mg) 2 tab Q4H PRN PO SEE LABEL COMMENTS 03/01/17 16:00 03/03/17 06:47 Acetaminophen (Tylenol) 650 mg Q4H PRN PO TEMPERATURE > 101.5 F 03/01/17 16:00 Dexamethasone Sodium Phosphate (Decadron Inj) 4 mg Q6HR IV PUSH 03/01/17 18:45 03/03/17 05:46 Hydromorphone HCl (Dilaudid Pf Inj) 0.5 mg Q4H PRN IV PUSH BREAKTHROUGH PAIN 03/03/17 09:00 03/03/17 09:14 Magnesium Hydroxide (Milk Of Magnesia Liq) 30 ml DAILY PRN PO CONSTIPATION 03/03/17 09:00 (Ashely Alford) Medical Decision Making MDM Remarks 46-year-old male who presented to the ED with progressive quadriparesis, his MRI C-spine showed disc herniation with severe canal stenosis, cord compression status post C5-6, C6-7 ACDF 03/01/17, POD 2 (Hill,Ashely A. PA) Plan Plan Remarks neuro stable, cont therapy, rehab efforts dc SJ drain, dc colbert catheter cont current care IS every hour ok for lovenox for dvt proph from NRS standpoint dw pt to avoid falls, also the do's and don'ts (Ashely Alford) Attending Statement The exam, history, and the medical decision-making described in the above note were completed with the assistance of the mid-level provider. I reviewed and agree with the findings presented. I attest that I had a [id number] encounter with the patient on the same day, and personally performed and documented my assessment and findings in the medical record. (Kavon Ortiz MD) Ashely Alford March 03, 2017 11:22 Kavon Ortiz MD March 03, 2017 21:35
[2017-03-03 12:20] VITALS: BP 125/77; PULSE 76; RESP 20; TEMP 96.8; O2SAT 95
[2017-03-03 16:00] VITALS: BP 127/80; PULSE 68; RESP 18; TEMP 96.2; O2SAT 98
[2017-03-03 23:39] VITALS: BP 127/76; PULSE 67; RESP 20; TEMP 97; O2SAT 96
[2017-03-04] VITALS: BP 128/74; PULSE 66; RESP 18; TEMP 95.4; O2SAT 97
[2017-03-04] MEDS: DEXAMETHASONE SOD PHOS 4 MG/ML VIAL IV PUSH SCH ×4 (01:19→21:27)
[2017-03-04] MEDS: ACETAMINOPHEN/HYDROcodone 325 MG/10 MG TAB PO PRN ×6 (01:20→21:18)
[2017-03-04 04:00] VITALS: BP 121/85; PULSE 86; RESP 20; TEMP 97.7; O2SAT 97
[2017-03-04 08:26] VITALS: BP 123/76; PULSE 65; RESP 18; TEMP 96.5; O2SAT 95
[2017-03-04] MEDS: SODIUM CHLORIDE 0.9% FLUSH 5 ML FLUSH IVF SCH ×2 (09:00→21:00)
[2017-03-04] MEDS: PANTOPRAZOLE SOD 40 MG DELAYED RELEASE TAB PO SCH (09:22)
[2017-03-04] MEDS: DOCUSATE SODIUM 100 MG CAP PO SCH ×2 (09:23→21:18)
--- NOTE | 2017-03-04 10:17 | HHI.NSPN ---
(Ashely Alford) Note Status Status: Progress Note (Ashely Alford) Interval History Interval History Mr. Vázquez is a 46-year-old male who presents to the ED today with complaints of severe lower extremity weakness. Mr. Vázquez reports he has been suffering from progressive lower extremity weakness for the past 2 months. He has come to the point where he is unable to ambulate. He reports of pain located in the bilateral upper thigh. He denies any associated falls or trauma. He reports of minimal cervical discomfort. He reports of some numbness in his left fingers. He also feels some weakness in his upper extremities. He denies bowel or bladder incontinence, fevers, chills. He denies IV drug use He underwent an emergent C5-6, C6-7 anterior cervical discectomy with arthrodesis on 03/01/1703/02: POD 1: Doing well in intensive surgical care unit. Reports stable neurological function. Complains of moderate lumbar pain. 03/03: POD 2, Sitting up in chair, a bit better today, eager for rehab. 03/04: POD 3, reports legs feels stronger, pain controlled with current regimen. (Ashely Alford) Labs, Micro, & Vital Signs Results Date Time Temp Pulse Resp B/P Pulse Ox O2 Delivery O2 Flow Rate FiO2 03/04/17 08:26 96.5 65 18 123/76 95 03/04/17 04:00 97.7 86 20 121/85 97 03/04/17 00:00 95.4 66 18 128/74 97 03/03/17 23:39 97.0 67 20 127/76 96 03/03/17 16:00 96.2 68 18 127/80 98 03/03/17 13:01 21 03/03/17 12:20 96.8 76 20 125/77 95 03/04/17 06:59 Intake Total 1220 ml Output Total 4813 ml Balance -3593 ml Constitutional Vital Signs Date Time Temp Pulse Resp B/P Pulse Ox O2 Delivery O2 Flow Rate FiO2 03/04/17 08:26 96.5 65 18 123/76 95 03/04/17 04:00 97.7 86 20 121/85 97 03/04/17 00:00 95.4 66 18 128/74 97 03/03/17 23:39 97.0 67 20 127/76 96 03/03/17 16:00 96.2 68 18 127/80 98 03/03/17 13:01 21 03/03/17 12:20 96.8 76 20 125/77 95 03/04/17 06:59 Intake Total 1220 ml Output Total 4813 ml Balance -3593 ml (Ashely Alford) Review of Systems/Exam Exam Mr. Vázquez is alert and oriented x 3. Speech is appropriate. Follows commands without difficulties. Cervical wound is clean and dry with dressing in place. Cranial nerve examination: pupils to be equal, round, and reactive to light. Facial symmetrical. Neck immobilized by cervical collar. 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 In the lower extremities, strength is 4/5 in both iliopsoas, quadriceps, hamstrings, 4+ to 5/5 plantar flexion, dorsiflexion, and extensor hallicus longus. Sensory examination is intact to light touch in both the upper and lower extremities, symmetrically. Deep tendon reflexes: 2+ left patellar, 3+ brisk right patellar. There is a bilateral Babinski response. (Ashely Alford) Medications Current Medications Current Medications Medications (Trade) Dose Ordered Sig/Jon Route PRN Reason Start Time Stop Time Status Last Admin Dose Admin Ondansetron HCl 4 mg 4 mg Q8H PRN IV PUSH NAUSEA 03/01/17 12:00 03/02/17 00:30 Potassium Chloride/Sodium Chloride (NS + KCl 20 Meq Inj) 1,000 ml @ 60 mls/hr [id number] IV 03/01/17 16:00 03/03/17 04:42 IV Flush (NS Flush) 2 ml UNSCH PRN IVF FLUSH AFTER USING IV ACCESS 03/01/17 15:45 03/02/17 00:31 IV Flush (NS Flush) 2 ml BID IVF 03/01/17 21:00 03/04/17 09:00 Docusate Sodium (Colace) 100 mg BID PO 03/01/17 21:00 03/04/17 09:23 Pantoprazole Sodium (Protonix) 40 mg DAILY PO 03/02/17 09:00 03/04/17 09:22 Acetaminophen/ Hydrocodone Bitart ([place] 10-325 Mg) 1 tab Q4H PRN PO SEE LABEL COMMENTS 03/01/17 16:00 03/03/17 21:15 Acetaminophen/ Hydrocodone Bitart ([place] 10-325 Mg) 2 tab Q4H PRN PO SEE LABEL COMMENTS 03/01/17 16:00 03/04/17 09:23 Acetaminophen (Tylenol) 650 mg Q4H PRN PO TEMPERATURE > 101.5 F 03/01/17 16:00 Dexamethasone Sodium Phosphate (Decadron Inj) 4 mg Q6HR IV PUSH 03/01/17 18:45 03/04/17 05:29 Hydromorphone HCl (Dilaudid Pf Inj) 0.5 mg Q4H PRN IV PUSH BREAKTHROUGH PAIN 03/03/17 09:00 03/03/17 09:14 Magnesium Hydroxide (Milk Of Magnrohith Liq) 30 ml DAILY PRN PO CONSTIPATION 03/03/17 09:00 (Ashely Alford) Medical Decision Making MDM Remarks 46-year-old male who presented to the ED with progressive quadriparesis, his MRI C-spine showed disc herniation with severe canal stenosis, cord compression status post C5-6, C6-7 ACDF 03/01/17, POD 3 (Ashely Alford) Plan Plan Remarks neuro stable, cont therapy, rehab efforts cont current care IS every hour ok for lovenox for dvt proph from NRS standpoint dw pt to avoid falls, activity restrictions, also the do's and don'ts clear to dc to rehab from NRS standpoint, will sign off, call prn (Ashely Alford) Attending Statement The exam, history, and the medical decision-making described in the above note were completed with the assistance of the mid-level provider. I reviewed and agree with the findings presented. I attest that I had a [id number] encounter with the patient on the same day, and personally performed and documented my assessment and findings in the medical record. (Kavon Ortiz MD) Ashely Alford March 04, 2017 10:17 Kavon Ortiz MD March 05, 2017 21:40
[2017-03-04] MEDS ORDERED: HYDR-3583 PO (11:18)
--- NOTE | 2017-03-04 11:18 | HHI.DCPOC ---
Discharge Care Plan Diagnosis: (1) Bilateral leg weakness Your Health Problems Are: Difficulty with ADL Goals to Promote Your Health * To prevent worsening of your condition and complications * To maintain your health at the optimal level Directions to Meet Your Goals Take your medications as prescribed Follow your dietary instruction Follow activity as directed Keep your appointments as scheduled Take your immunizations and boosters as scheduled If your symptoms worsen call your PCP, if no PCP go to Urgent Care Center or Emergency Room Smoking is Dangerous to Your Health. Avoid second hand smoke Call the 24-hour hour crisis hotline for domestic abuse at Gerard Goff MD March 04, 2017 11:18
[2017-03-04] MEDS: NS + KCL 20 MEQ INJ 1,000 ML IV SCH (11:29)
[2017-03-04 13:10] VITALS: BP 126/86; PULSE 60; RESP 18; TEMP 95.9; O2SAT 95
[2017-03-04] MEDS: MAGNESIUM HYDROXIDE SUSP 30 ML CUP PO PRN (13:23)
--- NOTE | 2017-03-04 14:00 | HHI.PR ---
Subjective Remarks sitting on the chair with no distress. pain is fairly controlled. no other complaints. d/w the RN. Objective Vitals Vital Signs Date Time Temp Pulse Resp B/P Pulse Ox O2 Delivery O2 Flow Rate FiO2 03/04/17 13:10 95.9 60 18 126/86 95 03/04/17 08:30 98 Room Air 03/04/17 08:26 96.5 65 18 123/76 95 03/04/17 04:00 97.7 86 20 121/85 97 03/04/17 00:00 95.4 66 18 128/74 97 03/03/17 23:39 97.0 67 20 127/76 96 03/03/17 16:00 96.2 68 18 127/80 98 I/O 03/03/17 03/03/17 03/03/17 03/04/17 03/04/17 03/04/17 07:00 15:00 23:00 07:00 15:00 23:00 Intake Total 1220 ml Output Total 1030 ml 1313 ml 300 ml 3200 ml 225 ml Balance -1030 ml -93 ml -300 ml -3200 ml -225 ml Intake Oral 600 ml IV Total 620 ml Output Urine Total 1000 ml 1300 ml 300 ml 3200 ml 225 ml Drainage Total 30 ml 13 ml # Bowel Movements 1 Result Diagram: 03/01/1734 03/01/1734 Imaging Last Impressions Thoracic Spine MRI 03/01/17 Signed Impressions: Service Date/Time: Wednesday, March 01, 2017 11:52 - CONCLUSION: 1. Thoracic scoliosis with mild degenerative change. However, no significant spinal canal stenosis or neural foraminal narrowing is identified. 2. There are space opacities at both lung bases and suspected enlarged mediastinal lymph nodes. Consider chest CT with IV contrast for further evaluation. Dg Harden MD Pelvis X-Ray 03/01/17 Signed Impressions: Service Date/Time: Wednesday, March 01, 2017 08:27 - CONCLUSION: Unremarkable examination of the pelvis. Dg Alberto MD Lumbar Spine MRI 03/01/17 Signed Impressions: Service Date/Time: Wednesday, March 01, 2017 09:00 - CONCLUSION: 1. There is a left paracentral disc extrusion at L1-L2 completely effacing left lateral recess. There is mass effect on the adjacent nerve roots. 2. There is mild spinal canal stenosis at L3-L4 secondary to disc bulge and facet and ligamentum flavum hypertrophy. Please see above for detailed description of each level. Dg Harden MD Cervical Spine X-Ray 03/01/17 0000 Signed Impressions: Service Date/Time: Wednesday, March 01, 2017 14:55 - CONCLUSION: Discectomy and fusion procedure at C5/C6. No acute abnormality demonstrated. Dg Caldwell MD Cervical Spine MRI 03/01/17 0000 Signed Impressions: Service Date/Time: Wednesday, March 01, 2017 11:52 - CONCLUSION: Severe degenerative change of the cervical spine with severe spinal canal stenosis at C6-C7 secondary primarily to an extruded disc. There is also spinal canal stenosis at C3-C4 and C5-C6. Areas of neural foraminal narrowing are also present, as above. Dg Harden MD Objective Remarks GENERAL: This is a well-nourished, well-developed patient, in no apparent distress. Neck; in cervical collar CARDIOVASCULAR: Regular rate and regular rhythm without murmurs, gallops, or rubs. RESPIRATORY: Clear to auscultation. Breath sounds equal bilaterally. No wheezes , rales, or rhonchi. GASTROINTESTINAL: Abdomen soft, non-tender, nondistended. Normal, active bowel sounds MUSCULOSKELETAL: Extremities without clubbing, cyanosis, or edema. NEURO: Alert & Oriented x4 to person, place, time, situation. Moves all ext x4 Procedures C5-6, C6-7 anterior cervical discectomy Medications and IVs Current Medications Morphine Sulfate (Morphine Inj) 4 mg ONCE ONCE IV PUSH Last administered on 08:40; Start 03/01/17 at 08:30; Stop 03/01/17 at 08:31; Status DC Ondansetron HCl (Zofran Inj) 4 mg ONCE ONCE IV PUSH Last administered on 08:40; Start 03/01/17 at 08:30; Stop 03/01/17 at 08:31; Status DC Gadodiamide (Omniscan Pf Inj) 20 ml STK-MED ONCE IV Last administered on 09:27; Start 03/01/17 at 09:27; Stop 03/01/17 at 09:28; Status DC Morphine Sulfate (Morphine Inj) 2 mg Q4H PRN IV PUSH PAIN SCALE 6 TO 10 Last administered on 03/01/17 11:32; Start 03/01/17 at 11:30; Stop 03/01/17 at 15:54; Status DC Dexamethasone Sodium Phosphate (Decadron Inj) 8 mg ONCE ONCE IV PUSH Last administered on 03/01/17 11:32; Start 03/01/17 at 11:30; Stop 03/01/17 at 11:31; Status DC Dexamethasone (Decadron) 4 mg ONCE ONCE PO ; Start 03/01/17 at 11:30; Stop at 11:31; Status DC Ondansetron HCl 4 mg 4 mg Q8H PRN IV PUSH NAUSEA Last administered on 03/02/17 00:30; Start 03/01/17 at 12:00 Sodium Chloride 1,000 ml @ 100 mls/hr Q10H IV ; Start 03/01/17 at 12:00; Stop at 15:55; Status DC Sodium Chloride 1,000 ml @ 100 mls/hr Q10H IV ; Start 03/01/17 at 12:39; Stop at 15:55; Status DC Cefazolin Sodium/ Dextrose 50 ml @ 150 mls/hr PLASTERER FOREMAN IV Last administered on 03/01/17 12:59; Start 03/01/17 at 12:45; Stop 03/02/17 at 12:44; Status DC Vancomycin HCl/ Sodium Chloride (Vancomycin Inj/ NS 250 ml Inj) 250 ml @ 250 mls/hr PLASTERER FOREMAN IV Last administered on 03/01/17 13:50; Start 03/01/17 at 12:45 ; Stop 03/02/17 at 12:44; Status DC Artificial Tears (Lacrilube Opht Oint) 3.5 applic STK-MED ONCE .ROUTE ; Start at 14:20; Stop 03/01/17 at 14:21; Status DC Midazolam HCl (Versed Inj) 2 mg STK-MED ONCE .ROUTE ; Start 03/01/17 at 14:20; Stop 03/01/17 at 14:21; Status DC Fentanyl Citrate (fentaNYL INJ) 250 mcg STK-MED ONCE .ROUTE ; Start 03/01/17 at 14:20; Stop 03/01/17 at 14:21; Status DC Fentanyl Citrate (fentaNYL INJ) 250 mcg STK-MED ONCE .ROUTE ; Start 03/01/17 at 14:20; Stop 03/01/17 at 14:21; Status DC Famotidine (Pepcid Inj) 20 mg STK-MED ONCE .ROUTE ; Start 03/01/17 at 14:21; Stop 03/01/17 at 14:22; Status DC Microfibriller Collagen Hemostat (Avitene Bandage) 1 bandage STK-MED ONCE .ROUTE Last administered on 03/01/17 16:48; Start 03/01/17 at 14:21; Stop at 14:22; Status DC Thrombin (Thrombin Top Soln) 10,000 units STK-MED ONCE .ROUTE Last administered on 03/01/17 16:48; Start 03/01/17 at 14:21; Stop 03/01/17 at 14:22; Status DC Gelatin (Gelfoam 100 Top) 1 foam STK-MED ONCE .ROUTE Last administered on 16:47; Start 03/01/17 at 14:21; Stop 03/01/17 at 14:22; Status DC Gentamicin Sulfate 240 mg 240 mg STK-MED ONCE .ROUTE Last administered on 15:56; Start 03/01/17 at 14:22; Stop 03/01/17 at 14:23; Status DC Potassium Chloride/Sodium Chloride (NS + KCl 20 Meq Inj) 1,000 ml @ 60 mls/hr [id number] IV Last administered on 03/03/17 04:42; Start 03/01/17 at 16:00 IV Flush (NS Flush) 2 ml UNSCH PRN IVF FLUSH AFTER USING IV ACCESS Last administered on 03/02/17 00:31; Start 03/01/17 at 15:45 IV Flush 2 ml 2 ml BID IVF Last administered on 03/04/17 09:00; Start 03/01/17 at 21:00 Cefazolin Sodium/ Dextrose (Ancef 2 Gm Premix) 50 ml @ 100 mls/hr Q8H IV Last administered on 03/02/17 13:14; Start 03/01/17 at 21:00; Stop 03/02/17 at 13:29; Status DC Docusate Sodium (Colace) 100 mg BID PO Last administered on 03/04/17 09:23; Start 03/01/17 at 21:00 Pantoprazole Sodium (Protonix) 40 mg DAILY PO Last administered on 03/04/17 09: 22; Start 03/02/17 at 09:00 Acetaminophen/ Hydrocodone Bitart ([place] 10-325 Mg) 1 tab Q4H PRN PO SEE LABEL COMMENTS Last administered on 03/03/17 21:15; Start 03/01/17 at 16:00 Acetaminophen/ Hydrocodone Bitart (Story 10-325 Mg) 2 tab Q4H PRN PO SEE LABEL COMMENTS Last administered on 03/04/17 13:24; Start 03/01/17 at 16:00 Morphine Sulfate (Morphine Inj) 2 mg Q2H PRN IV PUSH SEE LABEL COMMENTS; Start 03/01/17 at 16:00; Stop 03/03/17 at 08:51; Status DC Morphine Sulfate (Morphine Inj) 4 mg Q2H PRN IV PUSH SEE LABEL COMMENTS Last administered on 03/02/17 16:07; Start 03/01/17 at 16:00; Stop 03/03/17 at 08:51; Status DC Acetaminophen (Tylenol) 650 mg Q4H PRN PO TEMPERATURE > 101.5 F; Start 03/01/17 at 16:00 Cefazolin Sodium (Ancef Inj) 1,000 mg STK-MED ONCE IV ; Start 03/01/17 at 17:00; Stop 03/01/17 at 17:01; Status Cancel Dexamethasone Sodium Phosphate (Decadron Inj) 4 mg Q6HR IV PUSH Last administered on 03/04/17 11:25; Start 03/01/17 at 18:45 Cefazolin Sodium (Ancef Inj) 2,000 mg STK-MED ONCE IV Last administered on 17:00; Start 03/01/17 at 17:00; Stop 03/01/17 at 18:36; Status DC Morphine Sulfate (*morphine INJ PERIprocedure ONLY) 8 mg STK-MED ONCE .ROUTE Last administered on 03/01/17 19:16; Start 03/01/17 at 19:16; Stop 03/01/17 at 19: 17; Status DC Morphine Sulfate (*morphine INJ PERIprocedure ONLY) 8 mg STK-MED ONCE .ROUTE Last administered on 03/01/17 19:37; Start 03/01/17 at 19:37; Stop 03/01/17 at 19: 38; Status DC Diphenhydramine HCl (Benadryl Inj) 50 mg STK-MED ONCE .ROUTE Last administered on 03/01/17 20:42; Start 03/01/17 at 20:42; Stop 03/01/17 at 20:43; Status DC Magnesium Citrate (Citroma Liq) 300 ml ONCE ONCE PO Last administered on 11:09; Start 03/02/17 at 11:00; Stop 03/02/17 at 11:01; Status DC Albuterol/ Ipratropium (Duoneb Neb) 1 ampule Q4HR NEB PRN NEB SHORTNESS OF BREATH Last administered on 03/02/17 20:32; Start 03/02/17 at 12:15 Hydromorphone HCl (Dilaudid Pf Inj) 0.5 mg Q4H PRN IV PUSH BREAKTHROUGH PAIN Last administered on 03/03/17 09:14; Start 03/03/17 at 09:00 Magnesium Hydroxide (Milk Of Magnesia Liq) 30 ml DAILY PRN PO CONSTIPATION Last administered on 03/04/17 13:23; Start 03/03/17 at 09:00 A/P Assessment and Plan A/P - bilateral lower extremity / left upper extremity weakness lumbar spine MRI with disc protrusion at L1-2 level/ cervical MRI with severe spinal stenosis C5-6 s/p C5-6, C6-7 anterior cervical discectomy continue with pain control and rehab efforts- on IV steroids neurosurgery follow up appreciated. -constipation; laxatives as needed. -history of testicular cancer in remote past -DVT prophylaxis with SCD's Discharge Planning self-pay. no zaira beds at [facility]. needs to be cleared by PT. not ready for discharge yet. d/w the case management. Gerard Goff MD March 04, 2017 14:00
[2017-03-04 17:15] VITALS: BP 133/85; PULSE 64; RESP 16; TEMP 96; O2SAT 97
[2017-03-04] MEDS: HYDROmorphone HCL PF 1 MG/ML VIAL IV PUSH PRN ×2 (18:14→23:23)
[2017-03-04] MEDS ORDERED: PHENOL 1.4% SOLN 180 ML BTL OROPHARYNG PRN (18:30)
[2017-03-04 22:17] VITALS: BP 129/77; PULSE 67; RESP 48; TEMP 98; O2SAT 18
[2017-03-05] VITALS: BP 131/65; PULSE 76; RESP 18; TEMP 98.8; O2SAT 97
[2017-03-05] MEDS: ACETAMINOPHEN/HYDROcodone 325 MG/10 MG TAB PO PRN ×6 (02:30→23:54)
[2017-03-05] MEDS: HYDROmorphone HCL PF 1 MG/ML VIAL IV PUSH PRN ×5 (03:40→20:33)
[2017-03-05 04:00] VITALS: BP 134/85; PULSE 59; RESP 18; TEMP 98; O2SAT 98
[2017-03-05] MEDS: DEXAMETHASONE SOD PHOS 4 MG/ML VIAL IV PUSH SCH ×2 (06:48→20:34)
[2017-03-05 08:00] VITALS: BP 134/89; PULSE 63; RESP 20; TEMP 97.3; O2SAT 99
[2017-03-05] MEDS: PANTOPRAZOLE SOD 40 MG DELAYED RELEASE TAB PO SCH (08:12)
[2017-03-05] MEDS: DOCUSATE SODIUM 100 MG CAP PO SCH ×2 (08:12→20:32)
[2017-03-05] MEDS: SODIUM CHLORIDE 0.9% FLUSH 5 ML FLUSH IVF SCH ×2 (08:13→20:33)
--- NOTE | 2017-03-05 10:25 | HHI.PR ---
Subjective Remarks working with PT. pain is fairly controlled. no new complaints. d/w the PT. Objective Vitals Vital Signs Date Time Temp Pulse Resp B/P Pulse Ox O2 Delivery O2 Flow Rate FiO2 03/05/17 08:00 97.3 63 20 134/89 99 03/05/17 04:43 Room Air 03/05/17 04:00 98.0 59 18 134/85 98 03/05/17 00:00 98.8 76 18 131/65 97 03/04/17 22:17 98.0 67 48 129/77 18 03/04/17 17:15 96.0 64 16 133/85 97 03/04/17 13:10 95.9 60 18 126/86 95 I/O 03/04/17 03/04/17 03/04/17 03/05/17 03/05/17 03/05/17 06:59 14:59 22:59 06:59 14:59 22:59 Output Total 3200 ml 225 ml Balance -3200 ml -225 ml Output Urine Total 3200 ml 225 ml # Voids 8 Result Diagram: 03/01/17 0834 03/01/17 0834 Imaging Last Impressions Thoracic Spine MRI 03/01/17 0000 Signed Impressions: Service Date/Time: Wednesday, March 01, 2017 11:52 - CONCLUSION: 1. Thoracic scoliosis with mild degenerative change. However, no significant spinal canal stenosis or neural foraminal narrowing is identified. 2. There are space opacities at both lung bases and suspected enlarged mediastinal lymph nodes. Consider chest CT with IV contrast for further evaluation. Dg Harden MD Pelvis X-Ray 03/01/17 0000 Signed Impressions: Service Date/Time: Wednesday, March 01, 2017 08:27 - CONCLUSION: Unremarkable examination of the pelvis. Dg Alberto MD Lumbar Spine MRI 03/01/17 0000 Signed Impressions: Service Date/Time: Wednesday, March 01, 2017 09:00 - CONCLUSION: 1. There is a left paracentral disc extrusion at L1-L2 completely effacing left lateral recess. There is mass effect on the adjacent nerve roots. 2. There is mild spinal canal stenosis at L3-L4 secondary to disc bulge and facet and ligamentum flavum hypertrophy. Please see above for detailed description of each level. Dg Harden MD Cervical Spine X-Ray 03/01/17 0000 Signed Impressions: Service Date/Time: Wednesday, March 01, 2017 14:55 - CONCLUSION: Discectomy and fusion procedure at C5/C6. No acute abnormality demonstrated. Dg Caldwell MD Cervical Spine MRI 03/01/17 0000 Signed Impressions: Service Date/Time: Wednesday, March 01, 2017 11:52 - CONCLUSION: Severe degenerative change of the cervical spine with severe spinal canal stenosis at C6-C7 secondary primarily to an extruded disc. There is also spinal canal stenosis at C3-C4 and C5-C6. Areas of neural foraminal narrowing are also present, as above. Dg Harden MD Objective Remarks GENERAL: This is a well-nourished, well-developed patient, in no apparent distress. Neck; in cervical collar CARDIOVASCULAR: Regular rate and regular rhythm without murmurs, gallops, or rubs. RESPIRATORY: Clear to auscultation. Breath sounds equal bilaterally. No wheezes , rales, or rhonchi. GASTROINTESTINAL: Abdomen soft, non-tender, nondistended. Normal, active bowel sounds MUSCULOSKELETAL: Extremities without clubbing, cyanosis, or edema. NEURO: Alert & Oriented x4 to person, place, time, situation. Moves all ext x4 Procedures C5-6, C6-7 anterior cervical discectomy Medications and IVs Current Medications Morphine Sulfate (Morphine Inj) 4 mg ONCE ONCE IV PUSH Last administered on 08:40; Start 03/01/17 at 08:30; Stop 03/01/17 at 08:31; Status DC Ondansetron HCl (Zofran Inj) 4 mg ONCE ONCE IV PUSH Last administered on 08:40; Start 03/01/17 at 08:30; Stop 03/01/17 at 08:31; Status DC Gadodiamide (Omniscan Pf Inj) 20 ml STK-MED ONCE IV Last administered on 09:27; Start 03/01/17 at 09:27; Stop 03/01/17 at 09:28; Status DC Morphine Sulfate (Morphine Inj) 2 mg Q4H PRN IV PUSH PAIN SCALE 6 TO 10 Last administered on 03/01/17 11:32; Start 03/01/17 at 11:30; Stop 03/01/17 at 15:54; Status DC Dexamethasone Sodium Phosphate (Decadron Inj) 8 mg ONCE ONCE IV PUSH Last administered on 03/01/17 11:32; Start 03/01/17 at 11:30; Stop 03/01/17 at 11:31; Status DC Dexamethasone (Decadron) 4 mg ONCE ONCE PO ; Start 03/01/17 at 11:30; Stop at 11:31; Status DC Ondansetron HCl 4 mg 4 mg Q8H PRN IV PUSH NAUSEA Last administered on 03/02/17 00:30; Start 03/01/17 at 12:00 Sodium Chloride 1,000 ml @ 100 mls/hr Q10H IV ; Start 03/01/17 at 12:00; Stop at 15:55; Status DC Sodium Chloride 1,000 ml @ 100 mls/hr Q10H IV ; Start 03/01/17 at 12:39; Stop at 15:55; Status DC Cefazolin Sodium/ Dextrose 50 ml @ 150 mls/hr HOUSE CALLS NURSE IV Last administered on 03/01/17 12:59; Start 03/01/17 at 12:45; Stop 03/02/17 at 12:44; Status DC Vancomycin HCl/ Sodium Chloride (Vancomycin Inj/ NS 250 ml Inj) 250 ml @ 250 mls/hr HOUSE CALLS NURSE IV Last administered on 03/01/17 13:50; Start 03/01/17 at 12:45 ; Stop 03/02/17 at 12:44; Status DC Artificial Tears (Lacrilube Opht Oint) 3.5 applic STK-MED ONCE .ROUTE ; Start at 14:20; Stop 03/01/17 at 14:21; Status DC Midazolam HCl (Versed Inj) 2 mg STK-MED ONCE .ROUTE ; Start 03/01/17 at 14:20; Stop 03/01/17 at 14:21; Status DC Fentanyl Citrate (fentaNYL INJ) 250 mcg STK-MED ONCE .ROUTE ; Start 03/01/17 at 14:20; Stop 03/01/17 at 14:21; Status DC Fentanyl Citrate (fentaNYL INJ) 250 mcg STK-MED ONCE .ROUTE ; Start 03/01/17 at 14:20; Stop 03/01/17 at 14:21; Status DC Famotidine (Pepcid Inj) 20 mg STK-MED ONCE .ROUTE ; Start 03/01/17 at 14:21; Stop 03/01/17 at 14:22; Status DC Microfibriller Collagen Hemostat (Avitene Bandage) 1 bandage STK-MED ONCE .ROUTE Last administered on 03/01/17 16:48; Start 03/01/17 at 14:21; Stop at 14:22; Status DC Thrombin (Thrombin Top Soln) 10,000 units STK-MED ONCE .ROUTE Last administered on 03/01/17 16:48; Start 03/01/17 at 14:21; Stop 03/01/17 at 14:22; Status DC Gelatin (Gelfoam 100 Top) 1 foam STK-MED ONCE .ROUTE Last administered on 16:47; Start 03/01/17 at 14:21; Stop 03/01/17 at 14:22; Status DC Gentamicin Sulfate 240 mg 240 mg STK-MED ONCE .ROUTE Last administered on 15:56; Start 03/01/17 at 14:22; Stop 03/01/17 at 14:23; Status DC Potassium Chloride/Sodium Chloride (NS + KCl 20 Meq Inj) 1,000 ml @ 60 mls/hr [id number] IV Last administered on 03/03/17 04:42; Start 03/01/17 at 16:00; Stop at 14:02; Status DC IV Flush (NS Flush) 2 ml UNSCH PRN IVF FLUSH AFTER USING IV ACCESS Last administered on 03/02/17 00:31; Start 03/01/17 at 15:45 IV Flush 2 ml 2 ml BID IVF Last administered on 03/05/17 08:13; Start 03/01/17 at 21:00 Cefazolin Sodium/ Dextrose (Ancef 2 Gm Premix) 50 ml @ 100 mls/hr Q8H IV Last administered on 03/02/17 13:14; Start 03/01/17 at 21:00; Stop 03/02/17 at 13:29; Status DC Docusate Sodium (Colace) 100 mg BID PO Last administered on 03/05/17 08:12; Start 03/01/17 at 21:00 Pantoprazole Sodium (Protonix) 40 mg DAILY PO Last administered on 03/05/17 08: 12; Start 03/02/17 at 09:00 Acetaminophen/ Hydrocodone Bitart ([place] 10-325 Mg) 1 tab Q4H PRN PO SEE LABEL COMMENTS Last administered on 03/03/17 21:15; Start 03/01/17 at 16:00 Acetaminophen/ Hydrocodone Bitart ([place] 10-325 Mg) 2 tab Q4H PRN PO SEE LABEL COMMENTS Last administered on 03/05/17 06:42; Start 03/01/17 at 16:00 Morphine Sulfate (Morphine Inj) 2 mg Q2H PRN IV PUSH SEE LABEL COMMENTS; Start 03/01/17 at 16:00; Stop 03/03/17 at 08:51; Status DC Morphine Sulfate (Morphine Inj) 4 mg Q2H PRN IV PUSH SEE LABEL COMMENTS Last administered on 03/02/17 16:07; Start 03/01/17 at 16:00; Stop 03/03/17 at 08:51; Status DC Acetaminophen (Tylenol) 650 mg Q4H PRN PO TEMPERATURE > 101.5 F; Start 03/01/17 at 16:00 Cefazolin Sodium (Ancef Inj) 1,000 mg STK-MED ONCE IV ; Start 03/01/17 at 17:00; Stop 03/01/17 at 17:01; Status Cancel Dexamethasone Sodium Phosphate (Decadron Inj) 4 mg Q6HR IV PUSH Last administered on 03/04/17 11:25; Start 03/01/17 at 18:45; Stop 03/04/17 at 14:38; Status DC Cefazolin Sodium (Ancef Inj) 2,000 mg STK-MED ONCE IV Last administered on 17:00; Start 03/01/17 at 17:00; Stop 03/01/17 at 18:36; Status DC Morphine Sulfate (*morphine INJ PERIprocedure ONLY) 8 mg STK-MED ONCE .ROUTE Last administered on 03/01/17 19:16; Start 03/01/17 at 19:16; Stop 03/01/17 at 19: 17; Status DC Morphine Sulfate (*morphine INJ PERIprocedure ONLY) 8 mg STK-MED ONCE .ROUTE Last administered on 03/01/17 19:37; Start 03/01/17 at 19:37; Stop 03/01/17 at 19: 38; Status DC Diphenhydramine HCl (Benadryl Inj) 50 mg STK-MED ONCE .ROUTE Last administered on 03/01/17 20:42; Start 03/01/17 at 20:42; Stop 03/01/17 at 20:43; Status DC Magnesium Citrate (Citroma Liq) 300 ml ONCE ONCE PO Last administered on 11:09; Start 03/02/17 at 11:00; Stop 03/02/17 at 11:01; Status DC Albuterol/ Ipratropium (Duoneb Neb) 1 ampule Q4HR NEB PRN NEB SHORTNESS OF BREATH Last administered on 03/02/17 20:32; Start 03/02/17 at 12:15 Hydromorphone HCl (Dilaudid Pf Inj) 0.5 mg Q4H PRN IV PUSH BREAKTHROUGH PAIN Last administered on 03/05/17 08:15; Start 03/03/17 at 09:00 Magnesium Hydroxide (Milk Of Magnesia Liq) 30 ml DAILY PRN PO CONSTIPATION Last administered on 03/04/17 13:23; Start 03/03/17 at 09:00 Dexamethasone Sodium Phosphate (Decadron Inj) 4 mg Q8HR IV PUSH Last administered on 03/05/17 06:48; Start 03/04/17 at 22:00 Phenol (Chloraseptic [place]) 1 spray Q4H PRN OROPHARYNG COUGH/SORE THROAT Last administered on 03/04/17 21:21; Start 03/04/17 at 18:30 A/P Assessment and Plan A/P - bilateral lower extremity / left upper extremity weakness lumbar spine MRI with disc protrusion at L1-2 level/ cervical MRI with severe spinal stenosis C5-6 s/p C5-6, C6-7 anterior cervical discectomy continue with pain control and rehab efforts-tapering down IV steroids neurosurgery follow up appreciated and cleared for discharge. -constipation; laxatives as needed. -history of testicular cancer in remote past -DVT prophylaxis with SCD's Discharge Planning self-pay. no zaira beds at [facility]. d/w the PT and case management. possible dc home on Saturday if continues to improve with PT. Gerard Goff MD March 05, 2017 10:25
[2017-03-05 12:00] VITALS: BP 141/87; PULSE 69; RESP 20; TEMP 96.7; O2SAT 97
[2017-03-05 16:00] VITALS: BP 132/82; PULSE 97; RESP 20; TEMP 97; O2SAT 97
[2017-03-05 20:03] VITALS: BP 143/92; PULSE 62; RESP 18; TEMP 96.4; O2SAT 98
[2017-03-06 00:47] VITALS: BP 164/96; PULSE 59; RESP 17; TEMP 97.5; O2SAT 98
[2017-03-06] MEDS: HYDROmorphone HCL PF 1 MG/ML VIAL IV PUSH PRN ×3 (02:44→13:12)
[2017-03-06 05:17] VITALS: BP 123/81; PULSE 58; RESP 16; TEMP 97.2; O2SAT 100
[2017-03-06] MEDS: ACETAMINOPHEN/HYDROcodone 325 MG/10 MG TAB PO PRN ×3 (05:24→15:54)
[2017-03-06] MEDS: MAGNESIUM HYDROXIDE SUSP 30 ML CUP PO PRN (08:21)
[2017-03-06] MEDS: DOCUSATE SODIUM 100 MG CAP PO SCH (08:23)
[2017-03-06] MEDS: DEXAMETHASONE SOD PHOS 4 MG/ML VIAL IV PUSH SCH (08:23)
[2017-03-06] MEDS: SODIUM CHLORIDE 0.9% FLUSH 5 ML FLUSH IVF SCH (08:24)
[2017-03-06] MEDS: PANTOPRAZOLE SOD 40 MG DELAYED RELEASE TAB PO SCH (08:24)
[2017-03-06 09:03] VITALS: BP 134/81; PULSE 61; RESP 20; TEMP 97; O2SAT 95
--- NOTE | 2017-03-06 12:32 | HHI.PR ---
Subjective Remarks resting comfortably with no distress. pain is controlled. says that he did well with PT and now wants to go home today. Objective Vitals Vital Signs Date Time Temp Pulse Resp B/P Pulse Ox O2 Delivery O2 Flow Rate FiO2 03/06/17 09:04 18 03/06/17 09:03 97.0 61 20 134/81 95 03/06/17 05:17 97.2 58 16 123/81 100 03/06/17 00:47 97.5 59 17 164/96 98 03/05/17 20:03 96.4 62 18 143/92 98 03/05/17 16:00 97.0 97 20 132/82 97 I/O 03/05/17 03/05/17 03/05/17 03/06/17 03/06/17 03/06/17 07:00 15:00 23:00 07:00 15:00 23:00 Intake Total 240 ml Output Total 0 ml Balance 0 ml 240 ml Intake Oral 240 ml Stool Total 0 ml # Voids 8 4 4 # Bowel Movements 0 Imaging Last Impressions Thoracic Spine MRI 03/01/17 0000 Signed Impressions: Service Date/Time: Wednesday, March 01, 2017 11:52 - CONCLUSION: 1. Thoracic scoliosis with mild degenerative change. However, no significant spinal canal stenosis or neural foraminal narrowing is identified. 2. There are space opacities at both lung bases and suspected enlarged mediastinal lymph nodes. Consider chest CT with IV contrast for further evaluation. Dg Harden MD Pelvis X-Ray 03/01/17 0000 Signed Impressions: Service Date/Time: Wednesday, March 01, 2017 08:27 - CONCLUSION: Unremarkable examination of the pelvis. Dg Alberto MD Lumbar Spine MRI 03/01/17 0000 Signed Impressions: Service Date/Time: Wednesday, March 01, 2017 09:00 - CONCLUSION: 1. There is a left paracentral disc extrusion at L1-L2 completely effacing left lateral recess. There is mass effect on the adjacent nerve roots. 2. There is mild spinal canal stenosis at L3-L4 secondary to disc bulge and facet and ligamentum flavum hypertrophy. Please see above for detailed description of each level. Dg Harden MD Cervical Spine X-Ray 03/01/17 0000 Signed Impressions: Service Date/Time: Wednesday, March 01, 2017 14:55 - CONCLUSION: Discectomy and fusion procedure at C5/C6. No acute abnormality demonstrated. Dg Caldwell MD Cervical Spine MRI 03/01/17 0000 Signed Impressions: Service Date/Time: Wednesday, March 01, 2017 11:52 - CONCLUSION: Severe degenerative change of the cervical spine with severe spinal canal stenosis at C6-C7 secondary primarily to an extruded disc. There is also spinal canal stenosis at C3-C4 and C5-C6. Areas of neural foraminal narrowing are also present, as above. Dg Harden MD Objective Remarks GENERAL: This is a well-nourished, well-developed patient, in no apparent distress. Neck; in cervical collar CARDIOVASCULAR: Regular rate and regular rhythm without murmurs, gallops, or rubs. RESPIRATORY: Clear to auscultation. Breath sounds equal bilaterally. No wheezes , rales, or rhonchi. GASTROINTESTINAL: Abdomen soft, non-tender, nondistended. Normal, active bowel sounds MUSCULOSKELETAL: Extremities without clubbing, cyanosis, or edema. NEURO: Alert & Oriented x4 to person, place, time, situation. Moves all ext x4 Procedures C5-6, C6-7 anterior cervical discectomy Medications and IVs Current Medications Morphine Sulfate (Morphine Inj) 4 mg ONCE ONCE IV PUSH Last administered on 08:40; Start 03/01/17 at 08:30; Stop 03/01/17 at 08:31; Status DC Ondansetron HCl (Zofran Inj) 4 mg ONCE ONCE IV PUSH Last administered on 08:40; Start 03/01/17 at 08:30; Stop 03/01/17 at 08:31; Status DC Gadodiamide (Omniscan Pf Inj) 20 ml STK-MED ONCE IV Last administered on 09:27; Start 03/01/17 at 09:27; Stop 03/01/17 at 09:28; Status DC Morphine Sulfate (Morphine Inj) 2 mg Q4H PRN IV PUSH PAIN SCALE 6 TO 10 Last administered on 03/01/17 11:32; Start 03/01/17 at 11:30; Stop 03/01/17 at 15:54; Status DC Dexamethasone Sodium Phosphate (Decadron Inj) 8 mg ONCE ONCE IV PUSH Last administered on 03/01/17 11:32; Start 03/01/17 at 11:30; Stop 03/01/17 at 11:31; Status DC Dexamethasone (Decadron) 4 mg ONCE ONCE PO ; Start 03/01/17 at 11:30; Stop at 11:31; Status DC Ondansetron HCl 4 mg 4 mg Q8H PRN IV PUSH NAUSEA Last administered on 03/02/17 00:30; Start 03/01/17 at 12:00 Sodium Chloride 1,000 ml @ 100 mls/hr Q10H IV ; Start 03/01/17 at 12:00; Stop at 15:55; Status DC Sodium Chloride 1,000 ml @ 100 mls/hr Q10H IV ; Start 03/01/17 at 12:39; Stop at 15:55; Status DC Cefazolin Sodium/ Dextrose 50 ml @ 150 mls/hr QUALITY CONTROL COORDINATOR IV Last administered on 03/01/17 12:59; Start 03/01/17 at 12:45; Stop 03/02/17 at 12:44; Status DC Vancomycin HCl/ Sodium Chloride (Vancomycin Inj/ NS 250 ml Inj) 250 ml @ 250 mls/hr QUALITY CONTROL COORDINATOR IV Last administered on 03/01/17 13:50; Start 03/01/17 at 12:45 ; Stop 03/02/17 at 12:44; Status DC Artificial Tears (Lacrilube Opht Oint) 3.5 applic STK-MED ONCE .ROUTE ; Start at 14:20; Stop 03/01/17 at 14:21; Status DC Midazolam HCl (Versed Inj) 2 mg STK-MED ONCE .ROUTE ; Start 03/01/17 at 14:20; Stop 03/01/17 at 14:21; Status DC Fentanyl Citrate (fentaNYL INJ) 250 mcg STK-MED ONCE .ROUTE ; Start 03/01/17 at 14:20; Stop 03/01/17 at 14:21; Status DC Fentanyl Citrate (fentaNYL INJ) 250 mcg STK-MED ONCE .ROUTE ; Start 03/01/17 at 14:20; Stop 03/01/17 at 14:21; Status DC Famotidine (Pepcid Inj) 20 mg STK-MED ONCE .ROUTE ; Start 03/01/17 at 14:21; Stop 03/01/17 at 14:22; Status DC Microfibriller Collagen Hemostat (Avitene Bandage) 1 bandage STK-MED ONCE .ROUTE Last administered on 03/01/17 16:48; Start 03/01/17 at 14:21; Stop at 14:22; Status DC Thrombin (Thrombin Top Soln) 10,000 units STK-MED ONCE .ROUTE Last administered on 03/01/17 16:48; Start 03/01/17 at 14:21; Stop 03/01/17 at 14:22; Status DC Gelatin (Gelfoam 100 Top) 1 foam STK-MED ONCE .ROUTE Last administered on 16:47; Start 03/01/17 at 14:21; Stop 03/01/17 at 14:22; Status DC Gentamicin Sulfate 240 mg 240 mg STK-MED ONCE .ROUTE Last administered on 15:56; Start 03/01/17 at 14:22; Stop 03/01/17 at 14:23; Status DC Potassium Chloride/Sodium Chloride (NS + KCl 20 Meq Inj) 1,000 ml @ 60 mls/hr [id number] IV Last administered on 03/03/17 04:42; Start 03/01/17 at 16:00; Stop at 14:02; Status DC IV Flush (NS Flush) 2 ml UNSCH PRN IVF FLUSH AFTER USING IV ACCESS Last administered on 03/02/17 00:31; Start 03/01/17 at 15:45 IV Flush 2 ml 2 ml BID IVF Last administered on 03/06/17 08:24; Start 03/01/17 at 21:00 Cefazolin Sodium/ Dextrose (Ancef 2 Gm Premix) 50 ml @ 100 mls/hr Q8H IV Last administered on 03/02/17 13:14; Start 03/01/17 at 21:00; Stop 03/02/17 at 13:29; Status DC Docusate Sodium (Colace) 100 mg BID PO Last administered on 03/06/17 08:23; Start 03/01/17 at 21:00 Pantoprazole Sodium (Protonix) 40 mg DAILY PO Last administered on 03/06/17 08 :24; Start 03/02/17 at 09:00 Acetaminophen/ Hydrocodone Bitart ([place] 10-325 Mg) 1 tab Q4H PRN PO SEE LABEL COMMENTS Last administered on 03/03/17 21:15; Start 03/01/17 at 16:00 Acetaminophen/ Hydrocodone Bitart (Elizabeth 10-325 Mg) 2 tab Q4H PRN PO SEE LABEL COMMENTS Last administered on 03/06/17 11:14; Start 03/01/17 at 16:00 Morphine Sulfate (Morphine Inj) 2 mg Q2H PRN IV PUSH SEE LABEL COMMENTS; Start 03/01/17 at 16:00; Stop 03/03/17 at 08:51; Status DC Morphine Sulfate (Morphine Inj) 4 mg Q2H PRN IV PUSH SEE LABEL COMMENTS Last administered on 03/02/17 16:07; Start 03/01/17 at 16:00; Stop 03/03/17 at 08:51; Status DC Acetaminophen (Tylenol) 650 mg Q4H PRN PO TEMPERATURE > 101.5 F; Start 03/01/17 at 16:00 Cefazolin Sodium (Ancef Inj) 1,000 mg STK-MED ONCE IV ; Start 03/01/17 at 17:00; Stop 03/01/17 at 17:01; Status Cancel Dexamethasone Sodium Phosphate (Decadron Inj) 4 mg Q6HR IV PUSH Last administered on 03/04/17 11:25; Start 03/01/17 at 18:45; Stop 03/04/17 at 14:38; Status DC Cefazolin Sodium (Ancef Inj) 2,000 mg STK-MED ONCE IV Last administered on 17:00; Start 03/01/17 at 17:00; Stop 03/01/17 at 18:36; Status DC Morphine Sulfate (*morphine INJ PERIprocedure ONLY) 8 mg STK-MED ONCE .ROUTE Last administered on 03/01/17 19:16; Start 03/01/17 at 19:16; Stop 03/01/17 at 19: 17; Status DC Morphine Sulfate (*morphine INJ PERIprocedure ONLY) 8 mg STK-MED ONCE .ROUTE Last administered on 03/01/17 19:37; Start 03/01/17 at 19:37; Stop 03/01/17 at 19: 38; Status DC Diphenhydramine HCl (Benadryl Inj) 50 mg STK-MED ONCE .ROUTE Last administered on 03/01/17 20:42; Start 03/01/17 at 20:42; Stop 03/01/17 at 20:43; Status DC Magnesium Citrate (Citroma Liq) 300 ml ONCE ONCE PO Last administered on 11:09; Start 03/02/17 at 11:00; Stop 03/02/17 at 11:01; Status DC Albuterol/ Ipratropium (Duoneb Neb) 1 ampule Q4HR NEB PRN NEB SHORTNESS OF BREATH Last administered on 03/02/17 20:32; Start 03/02/17 at 12:15; Stop at 12:15; Status DC Hydromorphone HCl (Dilaudid Pf Inj) 0.5 mg Q4H PRN IV PUSH BREAKTHROUGH PAIN Last administered on 03/06/17 08:22; Start 03/03/17 at 09:00 Magnesium Hydroxide (Milk Of Magnesia Liq) 30 ml DAILY PRN PO CONSTIPATION Last administered on 03/06/17 08:21; Start 03/03/17 at 09:00 Dexamethasone Sodium Phosphate (Decadron Inj) 4 mg Q8HR IV PUSH Last administered on 03/05/17 06:48; Start 03/04/17 at 22:00; Stop 03/05/17 at 10:26; Status DC Phenol (Chloraseptic [place]) 1 spray Q4H PRN OROPHARYNG COUGH/SORE THROAT Last administered on 03/04/17 21:21; Start 03/04/17 at 18:30 Dexamethasone Sodium Phosphate (Decadron Inj) 2 mg Q12HR IV PUSH Last administered on 03/06/17 08:23; Start 03/05/17 at 21:00 A/P Assessment and Plan A/P - bilateral lower extremity / left upper extremity weakness lumbar spine MRI with disc protrusion at L1-2 level/ cervical MRI with severe spinal stenosis C5-6 s/p C5-6, C6-7 anterior cervical discectomy continue with pain control and rehab efforts-switch to po prednisone and taper off. neurosurgery follow up appreciated and cleared for discharge. -constipation; laxatives as needed. -history of testicular cancer in remote past -DVT prophylaxis with SCD's Discharge Planning dc home with f/u with pcp and neurosurgery. see med list. d/w the patient and case management. Gerard Goff MD March 06, 2017 12:32
[2017-03-06] MEDS ORDERED: PRED5TAB PO (12:34)
--- NOTE | 2017-03-06 12:34 | HHI.DS ---
Discharge Summary Admission Date March 04, 2017 at 14:07 Discharge Date: March 06, 2017 Admitting Diagnosis myelopathy versus cord compression, bilateral lower extremity weakne (1) Bilateral leg weakness ICD Code: R29.898 Diagnosis: Principal Procedures C5-6, C6-7 anterior cervical discectomy Brief History - From Admission patient is a 46 y/o male with history of testicular cancer in remote past presented to ER with weakness and pain of both legs. he says that this has been going on for a few months. initially it was attributed to the neuropathy but he says that the weakness has been getting worse to the extent that he had problem with walking. he says that the pain starts in hip area and radiates down to both feet. pain is worse when he remains in one position for a period of time. he denies any urine or stool incontinence. but he has some tingling of both legs. he says that his left arm is weaker than the right side. Imaging Last Impressions Thoracic Spine MRI 03/01/17 0000 Signed Impressions: Service Date/Time: Wednesday, March 01, 2017 11:52 - CONCLUSION: 1. Thoracic scoliosis with mild degenerative change. However, no significant spinal canal stenosis or neural foraminal narrowing is identified. 2. There are space opacities at both lung bases and suspected enlarged mediastinal lymph nodes. Consider chest CT with IV contrast for further evaluation. Dg Harden MD Pelvis X-Ray 03/01/17 0000 Signed Impressions: Service Date/Time: Wednesday, March 01, 2017 08:27 - CONCLUSION: Unremarkable examination of the pelvis. Dg Alberto MD Lumbar Spine MRI 03/01/17 0000 Signed Impressions: Service Date/Time: Wednesday, March 01, 2017 09:00 - CONCLUSION: 1. There is a left paracentral disc extrusion at L1-L2 completely effacing left lateral recess. There is mass effect on the adjacent nerve roots. 2. There is mild spinal canal stenosis at L3-L4 secondary to disc bulge and facet and ligamentum flavum hypertrophy. Please see above for detailed description of each level. Dg Harden MD Cervical Spine X-Ray 03/01/17 0000 Signed Impressions: Service Date/Time: Wednesday, March 01, 2017 14:55 - CONCLUSION: Discectomy and fusion procedure at C5/C6. No acute abnormality demonstrated. Dg Caldwell MD Cervical Spine MRI 03/01/17 0000 Signed Impressions: Service Date/Time: Wednesday, March 01, 2017 11:52 - CONCLUSION: Severe degenerative change of the cervical spine with severe spinal canal stenosis at C6-C7 secondary primarily to an extruded disc. There is also spinal canal stenosis at C3-C4 and C5-C6. Areas of neural foraminal narrowing are also present, as above. Dg Harden MD PE at Discharge GENERAL: This is a well-nourished, well-developed patient, in no apparent distress. Neck; in cervical collar CARDIOVASCULAR: Regular rate and regular rhythm without murmurs, gallops, or rubs. RESPIRATORY: Clear to auscultation. Breath sounds equal bilaterally. No wheezes , rales, or rhonchi. GASTROINTESTINAL: Abdomen soft, non-tender, nondistended. Normal, active bowel sounds MUSCULOSKELETAL: Extremities without clubbing, cyanosis, or edema. NEURO: Alert & Oriented x4 to person, place, time, situation. Moves all ext x4 Hospital Course - bilateral lower extremity / left upper extremity weakness lumbar spine MRI with disc protrusion at L1-2 level/ cervical MRI with severe spinal stenosis C5-6 s/p C5-6, C6-7 anterior cervical discectomy continue with pain control and rehab efforts-switch to po prednisone and taper off. neurosurgery follow up appreciated and cleared for discharge. -constipation; laxatives as needed. -history of testicular cancer in remote past -DVT prophylaxis with SCD's Pt Condition on Discharge: Good Discharge Disposition: Discharge Home Discharge Time: <= 30 minutes Discharge Instructions DIET: Follow Instructions for: Heart Healthy Diet Activities you can perform: Regular-No Restrictions Follow up Referrals: Neurosurgery PCP Follow-up New Medications: Prednisone (Prednisone) 5 Mg Tab 5 MG PO DIRECTED 40 mg po daily for two days then 30 mg po daily for two days then 20 mg po daily for two days then 10 mg po daily for two days then 5 mg po daily for two days then stop. Inflammation Days 10 Ref 0 TAB Hydrocodone-Acetaminophen (Hydrocodone-Acetaminophen) 10-325 mg Tab 1 TAB PO Q4H PRN pain #15 Ref 0 TAB Minouei,Mohammadreza MD March 06, 2017 12:34
[2017-03-06 12:40] VITALS: BP 140/81; PULSE 60; RESP 18; TEMP 97; O2SAT 96
[2017-03-06 13:04] VITALS: RESP 18
[2017-03-07] MEDS ORDERED: HYDR-3583 PO (10:02)
== END 2017-03-06 16:13 | disposition home or self-care (01) | DRG 471 ==
LOC: NEPE 07:56 → INTOOBSV 11:48 → NEDA 11:48 → N03B 23:22 → N05A 03-02 17:40 → OBSVTOIN 03-04 14:07
PROVIDERS: ADMIT Internal Medicine; ATTEND Internal Medicine
PROC: 0RG2070 Fusion of 2 or more Cervical Vertebral Joints with Autologous Tissue Substitute, Anterior Approach, Anterior Column, Open Approach (ICD-10-PCS; 2017-03-01)
PROC: 0RT30ZZ Resection of Cervical Vertebral Disc, Open Approach (ICD-10-PCS; 2017-03-01)
PROC: 0RG20A0 Fusion of 2 or more Cervical Vertebral Joints with Interbody Fusion Device, Anterior Approach, Anterior Column, Open Approach (ICD-10-PCS; principal; 2017-03-01 14:41)
DX: M50.022 Cervical disc disorder at C5-C6 level with myelopathy (principal); G82.50 Quadriplegia, unspecified; F17.210 Nicotine dependence, cigarettes, uncomplicated; Z85.47 Personal history of malignant neoplasm of testis; K59.00 Constipation, unspecified
CPT/HCPCS: 72020; 72142; 72147; 72158; 72170; 76000; 80053; 82550; 85025; 85610; 85652; 85730; 86850; 86900; 86901; 93005; 94150; 94640; 94664; 96374; 96375; 96376; A9579; C1713; G0378; J0690; J1100; J1170; J1200; J1580; J2250; J2270; J2405; J3010; J3370; J3480; J7050; J7120; L0150; L0172

== ENCOUNTER 2017-03-16 18:57 | Inpatient (IN) | payer SELFPAY ==
[~2017-03-16] VITALS: Ht 177.8 cm; Wt 109.5 kg
[~2017-03-16 18:57] MED LIST: HYDR-3583 PO; PRED5TAB PO
[2017-03-16 19:00] VITALS: BP 128/70; PULSE 104; RESP 16; TEMP 99.4; O2SAT 95
[2017-03-16] MEDS ORDERED: cefTRIAXone INJ 1,000 MG in SODIUM CHLORIDE 0.9% INJ 100 ML IV ONE (19:45)
[2017-03-16] MEDS ORDERED: ACETAMINOPHEN 325 MG TAB PO ONE (19:45)
[2017-03-16] MEDS ORDERED: VANCOMYCIN INJ 1,000 MG in SODIUM CHLOR 0.9% 250 ML INJ 250 ML IV ONE (19:45)
--- NOTE | 2017-03-16 20:02 | PD ---
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 Ortiz, here for evaluation of bilateral lower extremity edema, fevers and chills, general malaise, cough, and neck pain. The patient reports worsening bilateral lower extremity edema over the last week. He states that last night he had intermittent/objective fevers and chills. He denies chest pain or dyspnea. No history of DVT or PE. States that he smokes cigarettes for the last 30 years, and has a cough productive of whitish sputum in the mornings. He denies hemoptysis. Chart reviewed from previous visit shows that the patient had an MRI of his T spine which showed bilateral opacities and mediastinal lymphadenopathy with CT suggested for further analysis , however this study was not done. He reports feeling much improved since having his surgery, being able to walk which he was unable to do on presentation to the emergency department on 03/01/17. PFSH Past Medical History Cancer: Yes (testicular cancer) Cardiomyopathy: Yes Chemotherapy: Yes Diminished Hearing: No GERD: Yes Radiation Therapy: Yes Past Surgical History Abdominal Surgery: Yes (PARTIAL COLON REMOVAL) Appendectomy: Yes Other Surgery: Yes (LEFT LUNG LOBE REMOVED, ORCHIECTOMY RIGHT SIDE) Social History Alcohol Use: Yes (OCC) Tobacco Use: Yes (1/2 PPD) Substance Use: No Allergies-Medications (Allergen,Severity, Reaction): Coded Allergies: Cat Dander (Verified Allergy, Severe, 03/16/17) EYES WATERING Latex (Verified Allergy, Severe, 03/16/17) SKIN RASH Reported Meds & Prescriptions Reported Meds & Active Scripts Active Hydrocodone-Acetaminophen 10-325 mg Tab 1 Tab PO Q4H PRN Review of Systems Except as stated in HPI: all other systems reviewed are Neg Physical Exam Narrative GENERAL: Well-developed, well-nourished, comfortable, no acute distress. SKIN: Focused skin assessment warm/dry. No petechiae. No rash. HEAD: Atraumatic. Normocephalic. EYES: Pupils equal and round. No scleral icterus. No injection or drainage. ENT: Mucous membranes pink and moist. NECK: Patient presents with cervical collar. Trachea midline. No JVD. Anterior neck with horizontal surgical incision that is well healing, no surrounding warmth or erythema, no purulent drainage, no induration. CARDIOVASCULAR: Regular rate and rhythm. RESPIRATORY: No accessory muscle use. Clear to auscultation. Breath sounds equal bilaterally. GASTROINTESTINAL: Abdomen soft, non-tender, nondistended. MUSCULOSKELETAL: No obvious deformities. No clubbing. No cyanosis. Moderate bilateral lower extremity edema from foot to knee. Normal range of motion in all joints and extremities. No midline thoracic or lumbar spine tenderness. There is moderate diffuse midline cervical spine tenderness without step-off. NEUROLOGICAL: Awake and alert. No obvious cranial nerve deficits. Motor grossly within normal limits. Normal speech. Great toe extension present bilaterally. No saddle anesthesia. PSYCHIATRIC: Appropriate mood and affect; insight and judgment normal. Data Data Last Documented VS Vital Signs Date Time Temp Pulse Resp B/P Pulse Ox O2 Delivery O2 Flow Rate FiO2 03/16/17 20:15 101.0 03/16/17 19:00 104 16 128/70 95 Room Air Orders Complete Blood Count With Diff (03/16/17 19:40) Comprehensive Metabolic Panel (03/16/17 19:40) Prothrombin Time / Inr (Pt) (03/16/17 19:40) Act Partial Throm Time (Ptt) (03/16/17 19:40) Lactic Acid Sepsis Protocol (03/16/17 19:40) Urinalysis - C+S If Indicated (03/16/17 19:40) Blood Culture (03/16/17 19:40) Chest, Single Ap (03/16/17 19:40) Blood Glucose (03/16/17 19:40) Ecg Monitoring (03/16/17 19:40) Iv Access Insert/Monitor (03/16/17 19:40) Oximetry (03/16/17 19:40) Oxygen Administration (03/16/17 19:40) B-Type Natriuretic Peptide (03/16/17 19:40) Ct Pulmonary Angiogram (03/16/17 19:40) Us Leg Venous Doppler Bilat (03/16/17 ) Westergren Sedimentation Rate (03/16/17 19:40) C-Reactive Protein (Crp) (03/16/17 19:40) Vancomycin Inj (Vancomycin Inj) (03/16/17 19:45) Ceftriaxone Inj (Rocephin Inj) (03/16/17 19:45) Acetaminophen (Tylenol) (03/16/17 19:45) Mri C Spine W&W/O Contrast (03/16/17 ) Mri T Spine W & W/O Contrast (03/16/17 ) Mri L Spine W&W/O Contrast (03/16/17 ) Azithromycin Inj (Zithromax Inj) (03/16/17 20:30) Gadodiamide Pf Inj (Omniscan Pf Inj) (03/16/17 20:42) Labs Laboratory Tests Test 03/16/17 20:10 White Blood Count 8.6 TH/MM3 Red Blood Count 3.91 MIL/MM3 Hemoglobin 13.2 GM/DL Hematocrit 37.7 % Mean Corpuscular Volume 96.5 FL Mean Corpuscular Hemoglobin 33.7 PG Mean Corpuscular Hemoglobin 34.9 % Concent Red Cell Distribution Width 12.9 % Platelet Count 207 TH/MM3 Mean Platelet Volume 10.0 FL Neutrophils (%) (Auto) 68.8 % Lymphocytes (%) (Auto) 16.5 % Monocytes (%) (Auto) 10.1 % Eosinophils (%) (Auto) 3.6 % Basophils (%) (Auto) 1.0 % Neutrophils # (Auto) 5.9 TH/MM3 Lymphocytes # (Auto) 1.4 TH/MM3 Monocytes # (Auto) 0.9 TH/MM3 Eosinophils # (Auto) 0.3 TH/MM3 Basophils # (Auto) 0.1 TH/MM3 CBC Comment DIFF FINAL Differential Comment MDM Medical Decision Making Medical Screen Exam Complete: Yes Emergency Medical Condition: Yes Differential Diagnosis Sepsis, fluid overload, pulmonary edema, DVT, PE, pneumonia, osteomyelitis/ infected hardware Narrative Course Vital signs show heart rate 104, blood pressure 128/70, pulse ox 95% on room air , rectal temp of 101F. Patient was started on vancomycin and Rocephin shortly after arriving to the emergency department for fever and tachycardia meeting SIRS criteria. He was given a dose of azithromycin after chest x-ray results shows mild left base atelectasis or consolidation. At approximately midnight at the end my shift the patient was signed out to my nurse practitioner Gaye Garber to follow-up with all labs, imaging results, and likely admit. Stoney Goodwin MD March 16, 2017 20:02
--- NOTE | 2017-03-16 20:08 | RADRPT ---
EXAM DATE/TIME: 03/16/2017 19:46 [facility] COMPARISON: No previous studies available for comparison. INDICATIONS : Chest pain. Pain in upper back and shoulders. MEDICAL HISTORY : Carcinoma, testicular. SURGICAL HISTORY : Lobectomy. Colon resection. Right orchiectomy. ENCOUNTER: Initial ACUITY: 1 month PAIN SCORE: 5/10 LOCATION: Bilateral chest FINDINGS: The heart size is within normal limits. There is increased density at the left lateral base. There is some minimal prominence of the interstitium. The costophrenic angles are grossly clear. There is an anterior cervical fusion plate at the lower cervical spine. There is a dextro curvature of the t horacic spine and a compensatory levo curvature of the thoracolumbar region. CONCLUSION: Mild left base atelectasis or consolidation. Dg Retana MD on March 16, 2017 at 20:02 Board Certified Radiologist. This report was verified electronically.
[2017-03-16 20:15] VITALS: TEMP 101
[2017-03-16] MEDS ORDERED: AZITHROMYCIN INJ 500 MG in SODIUM CHLOR 0.9% 250 ML INJ 250 ML IV ONE (20:30)
[2017-03-16] MEDS ORDERED: GADODIAMIDE PF 287 MG/ML 20 ML VIAL (for RAD MRI) IV ONE (20:42)
[2017-03-16 20:49] LABS: AUTOMATED NEUTROPHIL # 5.9 TH/MM3 (1.8-7.7); BASOPHIL # 0.1 TH/MM3 (0-0.2); EOSINOPHIL # 0.3 TH/MM3 (0-0.4); EOSINOPHIL % 3.6 % (0.0-4.0); HEMATOCRIT 37.7 % (39.0-51.0); HEMO FLAGS DIFF FINAL; LYMPH % 16.5 % (9.0-44.0); LYMPHOCYTE # 1.4 TH/MM3 (1.0-4.8); MEAN CELL VOLUME 96.5 FL (80.0-100.0); MEAN CORPUSCULAR HEMOGLOBIN 33.7 PG (27.0-34.0); MEAN CORPUSCULAR HGB CONC 34.9 % (32.0-36.0); MONO % 10.1 % (0.0-8.0); NEUT % 68.8 % (16.0-70.0); PLATELET COUNT 207 TH/MM3 (150-450); RED BLOOD COUNT 3.91 MIL/MM3 (4.50-5.90); RED CELL DISTRIBUTION WIDTH 12.9 % (11.6-17.2); WHITE BLOOD COUNT 8.6 TH/MM3 (4.0-11.0)
[2017-03-16 20:59] LABS: APTT (PATIENT) 28.9 SEC (24.3-30.1); PROTHROMBIN TIME - PATIENT 10.7 SEC (9.8-11.6)
[2017-03-16 21:12] LABS: ANION GAP 10 MEQ/L (5-15); AST (GOT) 19 U/L (15-37); BICARBONATE 26.2 MEQ/L (21.0-32.0); BLOOD UREA NITROGEN 11 MG/DL (7-18); CHLORIDE 104 MEQ/L (98-107); GLOMERULAR FILTRATION RATE 74 ML/MIN (>89); SODIUM (NA) 140 MEQ/L (136-145)
[2017-03-16 21:25] LABS: ALKALINE PHOSPHATASE 85 U/L (45-117); ALT (GPT) 30 U/L (12-78); TOTAL BILIRUBIN ADULT 0.3 MG/DL (0.2-1.0)
[2017-03-16] MEDS ORDERED: HYDROmorphone HCL PF 1 MG/ML VIAL IV PUSH ONE (21:45)
--- NOTE | 2017-03-16 21:58 | RADRPT ---
EXAM DATE/TIME: 03/16/2017 20:15 [facility] COMPARISON: MRI CERVICAL SPINE W CONTRAST, March 01, 2017, 11:52. SPINE CERVICAL LATERAL ONLY, March 01, 2017, 14:55 . INDICATIONS : Difficulty with ambulation post c-spine fusion. CONTRAST: 20 cc Omniscan (gadodiamide) IV MEDICAL HISTORY : Carcinoma, testicular. SURGICAL HISTORY : Appendectomy. Colon resection. Lobectomy. Orchiectomy. ENCOUNTER: Initial ACUITY: 1 day PAIN SCORE: 4/10 LOCATION: [facility] TECHNIQUE: Multiplanar, multisequence MRI examination of the cervical spine was performed. FINDINGS: The patient has an anterior cervical fusion plate extending from C5 through C7. There are areas of l ow signal seen at the C5-C6 and C6-C7 discs likely related to bone plugs. There is enhancement throu ghout the C5-C6 and C6-C7 discs which can be seen following surgery. There is prevertebral soft tiss ue edema. This is most prominent anterior to the C7 level. This focal fluid collection appears to extend to the inferior aspect of the anterior cervical fusion plate at the C7 level. The fluid aravind ection subsequently extends anteriorly and to the right. It appears to measure at least 4.3 cm in he ight, 0.9 cm in AP dimension and 2.8 cm in transverse dimension. There is some enhancement seen in t he anterior epidural space extending from the tip of the dens down to the C3 level. The anterior epi dural space in this region appears similar to the preoperative study. A new or additional epidural f luid collection is not seen. On the postcontrast images, the prevertebral soft tissues enhance. Thi s area of prominent fluid density anterior to the C7 level does not enhance suggesting this may repre sent an abscess in the prevertebral soft tissues. An epidural fluid collection is not clearly seen. The cord appears thin throughout the cervical spine. There are focal areas of myelomalacia seen in the cord at the C5-C6 through C7 levels. These were seen on the prior preoperative MRI examination f rom 03/01/2017. C2-C3: The thecal sac has a normal configuration. There is no evidence of disc herniation or spinal canal s tenosis. The neural foramina are patent bilaterally. C3-C4: The disc demonstrates decreased height. There is a broad impression on the anterior aspect of the th ecal sac likely related to a diffuse disc protrusion. There is severe stenosis at this level with no significant CSF seen around the cord. C4-C5: The thecal sac has a normal configuration. There is no evidence of disc herniation or spinal canal s tenosis. The neural foramina are patent bilaterally. C5-C6: Again noted is the postoperative change with enhancement at the disc. There is also increased signal on the T2 weighted images. One cannot differentiate postoperative change versus superimposed inflam matory change causing the signal abnormality. A posterior epidural fluid collection is not seen. Th ere is only a thin layer of CSF seen around the cord. The patient likely has a spinal canal with a n arrowed AP dimension. C6-C7: Again noted is the postoperative change with enhancement at the disc. There is also increased signal on the T2 weighted images. One cannot differentiate postoperative change versus superimposed inflam matory change causing the signal abnormality. A posterior epidural fluid collection is not seen. Th ere is only a thin layer of CSF seen around the cord. The patient likely has a spinal canal with a n arrowed AP dimension. C7-T1: The thecal sac has a normal configuration. There is no evidence of disc herniation or spinal canal s tenosis. The neural foramina are patent bilaterally. CONCLUSION: 1. Status post anterior cervical fusion with an anterior cervical fusion plate extending from C5 thr ough C7. Bone plugs are seen at the C5-C6 and C6-C7 levels. There is enhancement and increased sign al within the disc at these levels. This could all be postoperative change. Some degree of superimp osed inflammatory process in these regions cannot be excluded. 2. Edema seen throughout the prevertebral soft tissues being most prominent at the C7 level. At thi s level, there appears to be a more focal fluid collection seen abutting the anterior-inferior aspect of the anterior cervical fusion plate. This extends anteriorly and to the right. It extends over a 4.3 cm length. This likely represents a postoperative fluid collection such as a seroma or abscess. Dg Retana MD on March 16, 2017 at 21:28 Board Certified Radiologist. This report was verified electronically.
--- NOTE | 2017-03-16 22:01 | RADRPT ---
EXAM DATE/TIME: 03/16/2017 20:15 [facility] COMPARISON: No previous studies available for comparison. INDICATIONS : Difficulty with ambulation post c-spine fusion. CONTRAST: 20 cc Omniscan (gadodiamide) IV MEDICAL HISTORY : Carcinoma, testicular. SURGICAL HISTORY : Lobectomy. Colon resection. Fusion, cervical. Orchiectomy. ENCOUNTER: Initial ACUITY: 1 day PAIN SCORE: 4/10 LOCATION: Paraspinal TECHNIQUE: Multiplanar multisequence MRI of the thoracic spine was performed. FINDINGS: VERTEBRA: Normal vertebral body height. Homogeneous marrow signal. ALIGNMENT: Normal. CORD: Normal position and configuration. POST CONTRAST: No abnormal areas of contrast enhancement seen. T1-T2: Normal. T2-T3: The thecal sac has a normal diameter. No evidence of disc bulge or protrusion. T3-T4: The thecal sac has a normal diameter. No evidence of disc bulge or protrusion. T4-T5: The thecal sac has a normal diameter. No evidence of disc bulge or protrusion. T5-T6: There is minimal bulging of the disc without significant stenosis. There continues to be CSF around the cord. T6-T7: The thecal sac has a normal diameter. No evidence of disc bulge or protrusion. T7-T8: There is a mild focal right lateral recess disc protrusion. There continues to be CSF inder und the cord. T8-T9: The thecal sac has a normal diameter. No evidence of disc bulge or protrusion. T9-T10: The thecal sac has a normal diameter. No evidence of disc bulge or protrusion. T10-T11: The thecal sac has a normal diameter. No evidence of disc bulge or protrusion. T11-T12: There is a mild right lateral recess disc protrusion. There continues to be CSF around the cord. T12-L1: The thecal sac has a normal diameter. No evidence of disc bulge or protrusion. CONCLUSION: Mild disc changes at the T5-T6, T7-T8 and T11-T12 levels as described above. An epidural fluid colle ction is not seen. Please see the cervical spine for description of a suspected inflammatory process in the lower cervical spine. Dg Retana MD on March 16, 2017 at 21:41 Board Certified Radiologist. This report was verified electronically.
--- NOTE | 2017-03-16 22:17 | RADRPT ---
EXAM DATE/TIME: 03/16/2017 21:33 [facility] COMPARISON: No previous studies available for comparison. INDICATIONS : Bilateral leg swelling, redness and pain. MEDICAL HISTORY : Gastroesophageal reflux disease. Osteoporosis. Cardiomyopathy. Testicular cancer. SURGICAL HISTORY : Appendectomy. Cervical dissection. Chemotherapy. Left lobe of lung removed. Orchiectomy, right. ENCOUNTER: Initial ACUITY: 1 week PAIN SCORE: 5/10 LOCATION: Bilateral legs. TECHNIQUE: Venous ultrasound of the left and right leg was performed from the inguinal ligament to the proximal calf. Real-time, color Doppler and spectral tracing, compression and augmentation techniques were us ed. FINDINGS: RIGHT LEG: There is normal compressibility of the deep venous system from the inguinal region to the proximal ca lf. No echogenic clot is seen in the lumen of the common femoral, femoral, popliteal, and posterior tibial veins. There is a normal response of the venous system to proximal and distal augmentation an d respiration. LEFT LEG: There is normal compressibility of the deep venous system from the inguinal region to the proximal ca lf. No echogenic clot is seen in the lumen of the common femoral, femoral, popliteal, and posterior tibial veins. There is a normal response of the venous system to proximal and distal augmentation an d respiration. CONCLUSION: No DVT. Dg Retana MD on March 16, 2017 at 22:15 Board Certified Radiologist. This report was verified electronically.
[2017-03-16 22:20] VITALS: BP 144/76; PULSE 98; RESP 16; O2SAT 96
[2017-03-16 22:42] LABS: LACTIC ACID GHOST NOT REPORTABLE
[2017-03-16] MEDS ORDERED: IOHEXOL 350 MG/ML 10 ML VIAL (for RAD DIAG) IV ONE (22:56)
[2017-03-16 23:10] VITALS: BP 126/72; PULSE 96; RESP 16; O2SAT 97
[2017-03-16] MEDS ORDERED: Vancomycin Consult Pharmacy 1 EA OTHER SCH (23:15)
[2017-03-16] MEDS ORDERED: ONDANSETRON HCL 4 MG/2 ML VIAL IVP PRN (23:15)
[2017-03-16] MEDS ORDERED: ACETAMINOPHEN 325 MG TAB PO PRN (23:15)
--- NOTE | 2017-03-16 23:16 | HHI.HP ---
HPI Service [facility] Primary Care Physician No Primary Care Physician Admission Diagnosis SEPSIS; PNEUMONIA; R/O POST OP INFECTION Diagnoses: (1) Sepsis Diagnosis: Principal (2) PNA (pneumonia) Diagnosis: Principal (3) Abscess Diagnosis: Principal (4) Tobacco abuse Diagnosis: Principal Travel History International Travel<30 Days: No Contact w/Intl Traveler <30 Da: No Traveled to Known Affected Are: No History of Present Illness This is a 46-year-old male with a PMH of Testicular CA s/p Chemo/Radiation/ Orchiectomy, Tobacco Abuse and h/o Cord Compression s/p ACDF by Dr. Ortiz who presented to the ER w/ complaints of bilateral lower extremity edema, SOB , neck pain and generalized fatigue. Reports subjective fever/chills. States he walked approx 1 mile w/ his walker yesterday, today noted progressive lower extremity edema. Denies sick contacts. On arrival, BP 128/70, HR 104, O2 sat 95% on RA, Temp 101.0. WBC normal. ESR 36. Chemistry essentially at baseline. Lactic Acid 2.1. INR 1.0. UA negative. CXR with mild left base consolidation. CTA Pulm negative for PE, noted to have possible interstitial pneumonitis or pulmonary fibrosis, fluid collection in prevertebral region of the cervicothoracic junction. MRI C-spine status post anterior cervical fusion C5 through C7, focal fluid collection abutting anterior inferior cervical fusion plate, possibly seroma or abscess. MRI T/L-spine with mild disc changes no epidural fluid collection seen. Doppler LE negative for DVT. Dr. Nazario consulted by ER physician, recommended IV Abx and admission for further observation, unclear if surgical intervention needed at this time. S/p Rocephin /Vanc/Zithro in ER. Review of Systems Except as stated in HPI: all other systems reviewed are Neg ROS: 14 point review of systems otherwise negative. Past Family Social History Past Medical History PMH: Testicular CA s/p Chemo/Radiation/Orchiectomy, Tobacco Abuse and h/o Cord Compression s/p ACDF by Dr. Ortiz 03/01/17 Past Surgical History PAST SURGICAL HISTORY: Partial Colectomy, Appendectomy, Left Lung Lobectomy, Right Orchiectomy, ACDF C5-C7 Allergies: Coded Allergies: Cat Dander (Verified Allergy, Severe, 03/16/17) EYES WATERING Latex (Verified Allergy, Severe, 03/16/17) SKIN RASH Family History PAST FAMILY HISTORY: Reviewed. No h/o DM or CAD Social History PAST SOCIAL HISTORY: Occasional alcohol. Smokes 1/2ppd. Negative for drugs. Physical Exam Vital Signs Vital Signs Date Time Temp Pulse Resp B/P Pulse Ox O2 Delivery O2 Flow Rate FiO2 03/16/17 20:15 101.0 03/16/17 19:00 99.4 104 16 128/70 95 Room Air Physical Exam PE: GENERAL: Middle-aged white male in no acute distress. C-collar in place HEENT: PERRLA, EOMI. No scleral icterus or conjunctival pallor. No lid lag or facial droop. CARDIOVASCULAR: Regular rate and rhythm. No obvious murmurs to auscultation. No chest tenderness to palpation. RESPIRATORY: No obvious rhonchi or wheezing. Clear to auscultation. Breath sounds equal bilaterally. GASTROINTESTINAL: Abdomen soft, non-tender, nondistended. BS normal. MUSCULOSKELETAL: Extremities without clubbing, cyanosis. +bilateral lower extremity edema. No obvious deformities. NEUROLOGICAL: Awake, alert and oriented x4. No focal neurologic deficits. Moving both upper and lower extremities spontaneously. Laboratory Laboratory Tests Test 03/16/17 20:10 White Blood Count 8.6 Red Blood Count 3.91 Hemoglobin 13.2 Hematocrit 37.7 Mean Corpuscular Volume 96.5 Mean Corpuscular Hemoglobin 33.7 Mean Corpuscular Hemoglobin 34.9 Concent Red Cell Distribution Width 12.9 Platelet Count 207 Mean Platelet Volume 10.0 Neutrophils (%) (Auto) 68.8 Lymphocytes (%) (Auto) 16.5 Monocytes (%) (Auto) 10.1 Eosinophils (%) (Auto) 3.6 Basophils (%) (Auto) 1.0 Neutrophils # (Auto) 5.9 Lymphocytes # (Auto) 1.4 Monocytes # (Auto) 0.9 Eosinophils # (Auto) 0.3 Basophils # (Auto) 0.1 CBC Comment DIFF FINAL Differential Comment Erythrocyte Sedimentation Rate 36 Prothrombin Time 10.7 Prothromb Time International 1.0 Ratio Activated Partial 28.9 Thromboplast Time Sodium Level 140 Potassium Level 4.0 Chloride Level 104 Carbon Dioxide Level 26.2 Anion Gap 10 Blood Urea Nitrogen 11 Creatinine 1.07 Estimat Glomerular Filtration 74 Rate Random Glucose 131 Lactic Acid Level 2.1 Calcium Level 8.8 Total Bilirubin 0.3 Aspartate Amino Transf 19 (AST/SGOT) Alanine Aminotransferase 30 (ALT/SGPT) Alkaline Phosphatase 85 C-Reactive Protein 2.00 B-Type Natriuretic Peptide 19 Total Protein 6.8 Albumin 3.4 Date/Time Procedure Status Source Growth 03/16/17 20:15 Aerobic Blood Culture Received Blood Peripheral Pending 03/16/17 20:15 Anaerobic Blood Culture Received Blood Peripheral Pending Result Diagram: 03/16/17200903/16/172009 Assessment and Plan Problem List: (1) Sepsis ICD Code: A41.9 Status: Acute (2) Abscess ICD Code: L02.91 Status: Acute (3) PNA (pneumonia) ICD Code: J18.9 Status: Acute (4) Tobacco abuse ICD Code: Z72.0 Status: Acute Assessment and Plan A/P 1. Sepsis: Temp 101.0, HR 120's, Lactic Acid 2.1, Source-likely C-Spine abscess, s/p Blood Cultures, Vanc/Rocephin/Zithro in ER. Repeat Lactic Acid now normalized at 0.9. Follow up cultures, continue IV Abx. 2. C-Spine Abscess: s/p ACDF C5-C7 secondary to cord compression 03/01/[address] Ortiz, now w/ fever and complaints of neck pain. MRI C-Spine w/ fluid collection, possibly seroma vs abscess, images reviewed by me. Dr. Nazario consulted by ER physician, recommended continuation of IV Abx and will eval in am for decision regarding surgical intervention. Analgesics/antiemetics as needed. IV Abx as above. 3. PNA: CXR w/ mild left base consolidation, CTA Pulm negative for PE, fibrotic changes possibly IPF or interstitial pneumonitis, will continue w/ IV Abx. DuoNeb prn as needed. 4. Tobacco Abuse: Pt counselled. NicoDerm prn if needed. 5. DVT Prophylaxis: SCD/Teds. 6. Social work for d/c planning as needed. 7. Case discussed w/ ER physician at length. Physician Certification 2 Midnight Certification Type: Admission for Inpatient Services Order for Inpatient Services The services are ordered in accordance with Medicare regulations or non- Medicare payer requirements, as applicable. In the case of services not specified as inpatient-only, they are appropriately provided as inpatient services in accordance with the 2-midnight benchmark. Estimated LOS (days): 2 days is the estimated time the patient will need to remain in the hospital, assuming treatment plan goals are met and no additional complications. Post-Hospital Plan: Not yet determined Brittany Elena MD March 16, 2017 23:16
--- NOTE | 2017-03-16 23:17 | RADRPT ---
EXAM DATE/TIME: 03/16/2017 22:48 [facility] COMPARISON: No previous studies available for comparison. INDICATIONS : Shortness of breath X one week; neck surgery 2 weeks ago. IV CONTRAST: 80 cc Omnipaque 350 (iohexol) IV RADIATION DOSE: 23.24 CTDIvol (mGy) MEDICAL HISTORY : testicular cancer SURGICAL HISTORY : Appendectomy. neck fusion ENCOUNTER: Initial ACUITY: 1 week PAIN SCALE: 3/10 LOCATION: chest TECHNIQUE: Volumetric scanning of the chest was performed using a pulmonary embolism protocol MIP images were re constructed. Using automated exposure control and adjustment of the mA and/or kV according to patien t size, radiation dose was kept as low as reasonably achievable to obtain optimal diagnostic quality images. FINDINGS: No filling defects identified to suggest pulmonary embolic disease. There is extensive pulmonary fibrosis with honeycombing at the lung bases and traction bronchiolectas is and bronchiectasis. Disease is predominantly peripheral in a pattern most characteristic of idiopa thic pulmonary fibrosis. There is also some patchy groundglass opacity, right greater than left that may represent an active alveolitis. Lung nika noted at the left base assuming from biopsy. No pleural or pericardial effusion. Borderline enlarged mediastinal lymph nodes and hilar lymph nodes bilaterally. No acute findings in the upper abdomen. CONCLUSION: 1. Negative for pulmonary embolus. 2. Lung fibrotic changes most characteristic of idiopathic pulmonary fibrosis or usual interstitial p neumonitis if there is no underlying cause for pulmonary fibrosis. Borderline enlarged mediastinal and hilar lymph nodes. Fluid collection in the prevertebral region ne ar the cervicothoracic junction better evaluated on recent MRI and possibly related to surgery. Eusebio Hopper MD on March 16, 2017 at 23:10 Board Certified Radiologist. This report was verified electronically.
[2017-03-16] MEDS: SODIUM CHLOR 0.9% 1000 ML INJ 1,000 ML IV SCH (23:40)
[2017-03-16] MEDS ORDERED: VANCOMYCIN 1,000 MG/NS 250 ML IV ONE ×2 (23:45)
--- NOTE | 2017-03-16 23:48 | PD ---
Physical Exam Time Seen by Provider: 23:48 Narrative Patient was signed out to me with imaging studies pending. Please refer to previous providers documentation for details surrounding the patient's current visit. Data Data Last Documented VS Vital Signs Date Time Temp Pulse Resp B/P Pulse Ox O2 Delivery O2 Flow Rate FiO2 03/16/17 22:20 98 16 144/76 96 Room Air 03/16/17 20:15 101.0 Orders Complete Blood Count With Diff (03/16/17 19:40) Comprehensive Metabolic Panel (03/16/17 19:40) Prothrombin Time / Inr (Pt) (03/16/17 19:40) Act Partial Throm Time (Ptt) (03/16/17 19:40) Lactic Acid Sepsis Protocol (03/16/17 19:40) Urinalysis - C+S If Indicated (03/16/17 19:40) Blood Culture (03/16/17 19:40) Chest, Single Ap (03/16/17 19:40) Blood Glucose (03/16/17 19:40) Ecg Monitoring (03/16/17 19:40) Iv Access Insert/Monitor (03/16/17 19:40) Oximetry (03/16/17 19:40) Oxygen Administration (03/16/17 19:40) B-Type Natriuretic Peptide (03/16/17 19:40) Ct Pulmonary Angiogram (03/16/17 19:40) Us Leg Venous Doppler Bilat (03/16/17 ) Westergren Sedimentation Rate (03/16/17 19:40) C-Reactive Protein (Crp) (03/16/17 19:40) Vancomycin Inj (Vancomycin Inj) (03/16/17 19:45) Ceftriaxone Inj (Rocephin Inj) (03/16/17 19:45) Acetaminophen (Tylenol) (03/16/17 19:45) Mri C Spine W&W/O Contrast (03/16/17 ) Mri T Spine W & W/O Contrast (03/16/17 ) Mri L Spine W&W/O Contrast (03/16/17 ) Azithromycin Inj (Zithromax Inj) (03/16/17 20:30) Gadodiamide Pf Inj (Omniscan Pf Inj) (03/16/17 20:42) Hydromorphone Pf Inj (Dilaudid Pf Inj) (03/16/17 21:45) Iohexol 350 Inj (Omnipaque 350 Inj) (03/16/17 22:56) Admit Order (Ed Use Only) (03/16/17 23:06) Labs Laboratory Tests Test 03/16/17 20:10 White Blood Count 8.6 TH/MM3 Red Blood Count 3.91 MIL/MM3 Hemoglobin 13.2 GM/DL Hematocrit 37.7 % Mean Corpuscular Volume 96.5 FL Mean Corpuscular Hemoglobin 33.7 PG Mean Corpuscular Hemoglobin 34.9 % Concent Red Cell Distribution Width 12.9 % Platelet Count 207 TH/MM3 Mean Platelet Volume 10.0 FL Neutrophils (%) (Auto) 68.8 % Lymphocytes (%) (Auto) 16.5 % Monocytes (%) (Auto) 10.1 % Eosinophils (%) (Auto) 3.6 % Basophils (%) (Auto) 1.0 % Neutrophils # (Auto) 5.9 TH/MM3 Lymphocytes # (Auto) 1.4 TH/MM3 Monocytes # (Auto) 0.9 TH/MM3 Eosinophils # (Auto) 0.3 TH/MM3 Basophils # (Auto) 0.1 TH/MM3 CBC Comment DIFF FINAL Differential Comment Erythrocyte Sedimentation Rate 36 mm/hr Prothrombin Time 10.7 SEC Prothromb Time International 1.0 RATIO Ratio Activated Partial 28.9 SEC Thromboplast Time Sodium Level 140 MEQ/L Potassium Level 4.0 MEQ/L Chloride Level 104 MEQ/L Carbon Dioxide Level 26.2 MEQ/L Anion Gap 10 MEQ/L Blood Urea Nitrogen 11 MG/DL Creatinine 1.07 MG/DL Estimat Glomerular Filtration 74 ML/MIN Rate Random Glucose 131 MG/DL Lactic Acid Level 2.1 mmol/L Calcium Level 8.8 MG/DL Total Bilirubin 0.3 MG/DL Aspartate Amino Transf 19 U/L (AST/SGOT) Alanine Aminotransferase 30 U/L (ALT/SGPT) Alkaline Phosphatase 85 U/L C-Reactive Protein 2.00 MG/DL B-Type Natriuretic Peptide 19 PG/ML Total Protein 6.8 GM/DL Albumin 3.4 GM/DL [facility] Medical Record Reviewed: Yes Supervised Visit with KARAN: No Narrative Course Laboratory Tests Test 03/16/17 20:10 White Blood Count 8.6 TH/MM3 Red Blood Count 3.91 MIL/MM3 Hemoglobin 13.2 GM/DL Hematocrit 37.7 % Mean Corpuscular Volume 96.5 FL Mean Corpuscular Hemoglobin 33.7 PG Mean Corpuscular Hemoglobin 34.9 % Concent Red Cell Distribution Width 12.9 % Platelet Count 207 TH/MM3 Mean Platelet Volume 10.0 FL Neutrophils (%) (Auto) 68.8 % Lymphocytes (%) (Auto) 16.5 % Monocytes (%) (Auto) 10.1 % Eosinophils (%) (Auto) 3.6 % Basophils (%) (Auto) 1.0 % Neutrophils # (Auto) 5.9 TH/MM3 Lymphocytes # (Auto) 1.4 TH/MM3 Monocytes # (Auto) 0.9 TH/MM3 Eosinophils # (Auto) 0.3 TH/MM3 Basophils # (Auto) 0.1 TH/MM3 CBC Comment DIFF FINAL Differential Comment Erythrocyte Sedimentation Rate 36 mm/hr Prothrombin Time 10.7 SEC Prothromb Time International 1.0 RATIO Ratio Activated Partial 28.9 SEC Thromboplast Time Sodium Level 140 MEQ/L Potassium Level 4.0 MEQ/L Chloride Level 104 MEQ/L Carbon Dioxide Level 26.2 MEQ/L Anion Gap 10 MEQ/L Blood Urea Nitrogen 11 MG/DL Creatinine 1.07 MG/DL Estimat Glomerular Filtration 74 ML/MIN Rate Random Glucose 131 MG/DL Lactic Acid Level 2.1 mmol/L Calcium Level 8.8 MG/DL Total Bilirubin 0.3 MG/DL Aspartate Amino Transf 19 U/L (AST/SGOT) Alanine Aminotransferase 30 U/L (ALT/SGPT) Alkaline Phosphatase 85 U/L C-Reactive Protein 2.00 MG/DL B-Type Natriuretic Peptide 19 PG/ML Total Protein 6.8 GM/DL Albumin 3.4 GM/DL I received a call from Dr. Retana in regards to the MRI of the cervical spine. The results are below. I discussed the patient with Dr. Nazario neurosurgeon [employer]. States this may be postop versus abscess. Patient has already been given IV antibiotics and blood cultures have been drawn. He requests admission to medicine for continued antibiotics and he will be consulted on the patient. Last Impressions Chest X-Ray 03/16/171939 Signed Impressions: Service Date/Time: Thursday, March 16, 2017 19:46 - CONCLUSION: Mild left base atelectasis or consolidation. Dg Retana MD CT Angiography 03/16/171939 Signed Impressions: Service Date/Time: Thursday, March 16, 2017 22:48 - CONCLUSION: 1. Negative for pulmonary embolus. 2. Lung fibrotic changes most characteristic of idiopathic pulmonary fibrosis or usual interstitial pneumonitis if there is no underlying cause for pulmonary fibrosis. Borderline enlarged mediastinal and hilar lymph nodes. Fluid collection in the prevertebral region near the cervicothoracic junction better evaluated on recent MRI and possibly related to surgery. Eusebio Hopper MD Thoracic Spine MRI 03/16/17 Signed Impressions: Service Date/Time: Thursday, March 16, 2017 20:15 - CONCLUSION: Mild disc changes at the T5-T6, T7-T8 and T11-T12 levels as described above. An epidural fluid collection is not seen. Please see the cervical spine for description of a suspected inflammatory process in the lower cervical spine. Dg Retana MD Lower Extremity Ultrasound 03/16/17 Signed Impressions: Service Date/Time: Thursday, March 16, 2017 21:33 - CONCLUSION: No DVT. Dg Retana MD Cervical Spine MRI 03/16/17 Signed Impressions: Service Date/Time: Thursday, March 16, 2017 20:15 - CONCLUSION: 1. Status post anterior cervical fusion with an anterior cervical fusion plate extending from C5 through C7. Bone plugs are seen at the C5-C6 and C6-C7 levels. There is enhancement and increased signal within the disc at these levels. This could all be postoperative change. Some degree of superimposed inflammatory process in these regions cannot be excluded. 2. Edema seen throughout the prevertebral soft tissues being most prominent at the C7 level. At this level, there appears to be a more focal fluid collection seen abutting the anterior-inferior aspect of the anterior cervical fusion plate. This extends anteriorly and to the right. It extends over a 4.3 cm length. This likely represents a postoperative fluid collection such as a seroma or abscess. Dg Retana MD I discussed the patient with Dr. Elena. He will be admitted to the [facility]. Patient is made aware of the plan of care. He is in agreement with this. Diagnosis Primary Impression: Sepsis Qualified Code: A41.9 - Sepsis, due to unspecified organism Additional Impressions: PNA (pneumonia) Qualified Code: J18.1 - Pneumonia of left lower lobe due to infectious organism Post-op pain Abscess Admitting Information Admitting Physician Requests: Admit Condition: Stable Gaye Garber March 16, 2017 23:48
[2017-03-17] VITALS (10 sets, daily range): BP systolic 100–138; BP diastolic 56–81; PULSE 62–94; RESP 14–18; TEMP 97.4–98.6; O2SAT 95–98
[2017-03-17 00:09] LABS: BLOOD, URINE NEG (NEG); GLUCOSE,URINE NEG (NEG); KETONE, URINE NEG (NEG); NITRITE,URINE NEG (NEG); URINE COLOR YELLOW (YELLW/STRAW)
[2017-03-17 00:13] LABS: COMMENT (UR) CATH-CULT NOT IND; CULTURE IF INDICATED CATH CULTURE NOT IND
[2017-03-17] MEDS: ACETAMINOPHEN/HYDROcodone 325 MG/10 MG TAB PO PRN ×5 (01:11→20:05)
[2017-03-17] MEDS ORDERED: RESP: ALBUTEROL 2.5 MG/IPRATROPIUM 0.5 MG NEB (PRN) NEB (01:30)
[2017-03-17] MEDS: MORPHINE SULFATE 4 MG/ML INJ IV PRN ×2 (03:22→13:30)
--- NOTE | 2017-03-17 08:40 | RADRPT ---
EXAM DATE/TIME: 03/16/2017 20:15 [facility] COMPARISON: MRI LUMBAR SPINE W & W/O CONTRAST, March 01, 2017, 9:00. INDICATIONS : Difficulty with ambulation post c-spine fusion. CONTRAST: 20 cc Omniscan (gadodiamide) IV MEDICAL HISTORY : Carcinoma, testicular. SURGICAL HISTORY : Fusion, cervical. Lobectomy. Colon resection. Orchiectomy. ENCOUNTER: Initial ACUITY: 1 day PAIN SCORE: 5/10 LOCATION: [facility] TECHNIQUE: Multiplanar multisequence MRI of the lumbar spine was performed with and without contrast. FINDINGS: The most caudal appearing lumbar vertebra is numbered as L5. There is diffuse disc desiccation and mi ld disc space narrowing. Conus unremarkable. VERTEBRAE: Homogeneous signal. Normal alignment. CONUS: Normal level and configuration. POST CONTRAST: No abnormal areas of contrast enhancement are seen. T12-L1: The thecal sac has a normal diameter. No evidence of disc bulge or protrusion. The neural foramina are patent bilaterally. L1-L2: Broad-based left central disc protrusion again seen and not significantly changed. There is mild impr ession on the ventral aspect of the thecal sac. L2-L3: Mild diffuse disc bulge with mild bilateral foraminal narrowing. L3-L4: Diffuse disc bulge greatest centrally with mild canal stenosis and abutment of the L4 nerve roots. Mi ld facet and ligamentum flavum hypertrophy. Mild to moderate foraminal narrowing. L4-L5: Diffuse disc bulge greatest centrally with mild facet hypertrophy. No canal stenosis. No significant foraminal narrowing. L5-S1: The thecal sac has a normal diameter. No evidence of disc bulge or protrusion. The neural foramina are patent bilaterally. CONCLUSION: 1. Degenerative changes of the lumbar spine are again seen with no evidence for osteomyelitis or disc itis. Avila Sanchez MD on March 17, 2017 at 8:35 Board Certified Radiologist. This report was verified electronically.
[2017-03-17 08:52] LABS: AUTOMATED NEUTROPHIL # 3.4 TH/MM3 (1.8-7.7); BASOPHIL # 0.1 TH/MM3 (0-0.2); BASOPHIL % 0.9 % (0.0-2.0); EOSINOPHIL # 0.4 TH/MM3 (0-0.4); EOSINOPHIL % 5.3 % (0.0-4.0); HEMATOCRIT 36.3 % (39.0-51.0); HEMO FLAGS DIFF FINAL; LYMPH % 27.6 % (9.0-44.0); LYMPHOCYTE # 1.8 TH/MM3 (1.0-4.8); MEAN CELL VOLUME 97.5 FL (80.0-100.0); MEAN CORPUSCULAR HEMOGLOBIN 33.6 PG (27.0-34.0); MEAN CORPUSCULAR HGB CONC 34.4 % (32.0-36.0); MONO % 14.1 % (0.0-8.0); NEUT % 52.1 % (16.0-70.0); PLATELET COUNT 193 TH/MM3 (150-450); RED BLOOD COUNT 3.73 MIL/MM3 (4.50-5.90); WHITE BLOOD COUNT 6.6 TH/MM3 (4.0-11.0)
[2017-03-17 09:25] LABS: ALKALINE PHOSPHATASE 77 U/L (45-117); ALT (GPT) 27 U/L (12-78); ANION GAP 6 MEQ/L (5-15); AST (GOT) 16 U/L (15-37); BLOOD UREA NITROGEN 11 MG/DL (7-18); CHLORIDE 105 MEQ/L (98-107); GLOMERULAR FILTRATION RATE 93 ML/MIN (>89); POTASSIUM 4.1 MEQ/L (3.5-5.1); SODIUM (NA) 141 MEQ/L (136-145); TOTAL BILIRUBIN ADULT 0.3 MG/DL (0.2-1.0)
[2017-03-17] MEDS: cefTRIAXone INJ 2,000 MG in SODIUM CHLORIDE 0.9% INJ 100 ML IV SCH ×2 (09:33→20:04)
[2017-03-17] MEDS: SODIUM CHLORIDE 0.9% FLUSH 10 ML FLUSH IV FLUSH SCH ×2 (09:34→20:03)
[2017-03-17] MEDS: SODIUM CHLOR 0.9% 1000 ML INJ 1,000 ML IV SCH ×2 (09:38→20:01)
[2017-03-17] MEDS: VANCOMYCIN INJ 1,750 MG in SODIUM CHLORID 0.9% 500 ML INJ 500 ML IV SCH (12:50)
[2017-03-17] MEDS ORDERED: DIMETHICONE/OXYBENZONE/PADMIATE LIP BALM 4.25 GM TOPICAL PRN (15:00)
--- NOTE | 2017-03-17 15:16 | HHI.PR ---
Subjective Remarks Follow-up sepsis and possible C-spine abscess. Requesting better pain coverage. Discussed with RN. Per patient neurosurgery recommends medical management at this time Objective Vitals Vital Signs Date Time Temp Pulse Resp B/P Pulse Ox O2 Delivery O2 Flow Rate FiO2 03/17/17 12:00 97.7 62 18 112/59 98 03/17/17 08:40 Room Air 03/17/17 08:12 72 03/17/17 08:00 97.6 67 18 111/65 97 03/17/17 04:00 Room Air 03/17/17 04:00 97.7 68 18 100/56 95 03/17/17 01:00 64 03/17/17 00:36 98.6 65 18 114/56 96 03/17/17 00:36 Room Air 03/17/17 00:00 98.1 94 14 134/68 98 Room Air 03/16/17 23:10 96 16 126/72 97 Room Air 03/16/17 22:20 98 16 144/76 96 Room Air 03/16/17 20:15 101.0 03/16/17 19:00 99.4 104 16 128/70 95 Room Air I/O 03/16/17 03/16/17 03/16/17 03/17/17 03/17/17 03/17/17 06:59 14:59 22:59 06:59 14:59 22:59 Intake Total 1149 ml 720 ml Output Total 1000 ml Balance 149 ml 720 ml Intake Oral 480 ml 720 ml IV Total 669 ml Output Urine Total 1000 ml # Voids 2 # Bowel Movements 0 0 Result Diagram: 03/17/17 0741 03/17/17740 Imaging Last Impressions Chest X-Ray 03/16/171939 Signed Impressions: Service Date/Time: Thursday, March 16, 2017 19:46 - CONCLUSION: Mild left base atelectasis or consolidation. Dg Retana MD CT Angiography 03/16/171939 Signed Impressions: Service Date/Time: Thursday, March 16, 2017 22:48 - CONCLUSION: 1. Negative for pulmonary embolus. 2. Lung fibrotic changes most characteristic of idiopathic pulmonary fibrosis or usual interstitial pneumonitis if there is no underlying cause for pulmonary fibrosis. Borderline enlarged mediastinal and hilar lymph nodes. Fluid collection in the prevertebral region near the cervicothoracic junction better evaluated on recent MRI and possibly related to surgery. Eusebio Hopper MD Thoracic Spine MRI 03/16/17 Signed Impressions: Service Date/Time: Thursday, March 16, 2017 20:15 - CONCLUSION: Mild disc changes at the T5-T6, T7-T8 and T11-T12 levels as described above. An epidural fluid collection is not seen. Please see the cervical spine for description of a suspected inflammatory process in the lower cervical spine. Dg Retana MD Lumbar Spine MRI 03/16/17 Signed Impressions: Service Date/Time: Thursday, March 16, 2017 20:15 - CONCLUSION: 1. Degenerative changes of the lumbar spine are again seen with no evidence for osteomyelitis or discitis. Avila Sanchez MD Lower Extremity Ultrasound 03/16/17 Signed Impressions: Service Date/Time: Thursday, March 16, 2017 21:33 - CONCLUSION: No DVT. Dg Retana MD Cervical Spine MRI 03/16/17 Signed Impressions: Service Date/Time: Thursday, March 16, 2017 20:15 - CONCLUSION: 1. Status post anterior cervical fusion with an anterior cervical fusion plate extending from C5 through C7. Bone plugs are seen at the C5-C6 and C6-C7 levels. There is enhancement and increased signal within the disc at these levels. This could all be postoperative change. Some degree of superimposed inflammatory process in these regions cannot be excluded. 2. Edema seen throughout the prevertebral soft tissues being most prominent at the C7 level. At this level, there appears to be a more focal fluid collection seen abutting the anterior-inferior aspect of the anterior cervical fusion plate. This extends anteriorly and to the right. It extends over a 4.3 cm length. This likely represents a postoperative fluid collection such as a seroma or abscess. Dg Retana MD Objective Remarks GENERAL: Well-developed obese in no distress SKIN: Warm and dry. HEAD: Atraumatic. Normocephalic. EYES: Pupils equal and round. No scleral icterus. No injection or drainage. ENT: No nasal bleeding or discharge. Mucous membranes pink and moist. NECK: Trachea midline. No JVD. CARDIOVASCULAR: Regular rate and rhythm. RESPIRATORY: No accessory muscle use. Clear to auscultation. Breath sounds equal bilaterally. GASTROINTESTINAL: Abdomen soft, non-tender, nondistended. MUSCULOSKELETAL: Extremities without clubbing, cyanosis but with bilateral lower extremity pitting edema. No obvious deformities. NEUROLOGICAL: Awake and alert. No obvious cranial nerve deficits. Motor grossly within normal limits. Five out of 5 muscle strength in the arms and legs. Normal speech. PSYCHIATRIC: Appropriate mood and affect; insight and judgment normal. A/P Problem List: (1) Sepsis ICD Code: A41.9 Status: Acute (2) Abscess ICD Code: L02.91 Status: Acute (3) PNA (pneumonia) ICD Code: J18.9 Status: Acute (4) Tobacco abuse ICD Code: Z72.0 Status: Chronic Assessment and Plan 1. Sepsis: Temp 101.0, HR 120's, Lactic Acid 2.1, Source-likely C-Spine abscess, s/p Blood Cultures, Vanc/Rocephin/Zithro in ER. Repeat Lactic Acid now normalized at 0.9. Follow up cultures, continue IV Abx. 2. C-Spine Abscess: s/p ACDF C5-C7 secondary to cord compression 03/01/[address] Ortiz, now w/ fever and complaints of neck pain. MRI C-Spine w/ fluid collection, possibly seroma vs abscess, images reviewed by me. Dr. Nazario consulted by ER physician, recommended continuation of IV Abx and will follow- up for decision regarding surgical intervention. Analgesics/antiemetics as needed. IV Abx as above. Counseled regarding narcotics switch to Lortab and IV morphine for breakthrough pain 3. PNA: CXR w/ mild left base consolidation, CTA Pulm negative for PE, fibrotic changes possibly IPF or interstitial pneumonitis, will continue w/ IV Abx. DuoNeb prn as needed. Consider switching to Zosyn if patient continues to have fever 4. Tobacco Abuse: Pt counselled. NicoDerm prn if needed. 5. DVT Prophylaxis: SCD/Teds. Discharge Planning Not ready for discharge Problem Qualifiers (1) Sepsis: Qualified Code: A41.9 - Sepsis, due to unspecified organism (2) PNA (pneumonia): Qualified Code: J18.1 - Pneumonia of left lower lobe due to infectious organism Santiago Gardner MD March 17, 2017 15:16
--- NOTE | 2017-03-17 16:42 | PD.CONS ---
History of Present Illness Service Neurosurgery Consult Requested By Medicine service Reason for Consult Possible postoperative neck infection. Primary Care Physician No Primary Care Physician Diagnoses: History of Present Illness The patient is a 46-year-old male who recently underwent C5 6 and C6 7 anterior cervical discectomy and interbody fusion with PEEK cage on 03/01/17 due to significant disc herniation and spinal stenosis with myelopathy. The patient presented back to the emergency room last evening with complaint of intermittent fevers and chills for the past few days as well as increasing upper extremity edema. He also reports possibly some increased numbness in the left upper extremity although this was also present preoperatively. Also indicates persistent left greater than right lower extremity sensory changes although not significantly changed since surgery. He does indicate that his ambulation has significantly improved postoperatively, now able ambulate reasonably well, with his gait markedly impaired prior to surgery. He does complain of some difficulty swallowing and sore throat. No significant hoarseness of voice. Review of Systems Constitutional: COMPLAINS OF: Fever, Chills Eyes: DENIES: Blurred vision Respiratory: DENIES: Cough, Shortness of breath Cardiovascular: DENIES: Chest pain, Palpitations Gastrointestinal: DENIES: Abdominal pain, Nausea, Vomiting Musculoskeletal: COMPLAINS OF: Muscle aches, Joint Swelling, Neck pain Hematologic/lymphatic: DENIES: Bruising Neurologic: COMPLAINS OF: Abnormal gait, Poor Balance Psychiatric: DENIES: Anxiety, Confusion Past Family Social History Allergies: Coded Allergies: Cat Dander (Verified Allergy, Severe, 03/16/17) EYES WATERING Latex (Verified Allergy, Severe, 03/16/17) SKIN RASH Past Medical History Testicular cancer Cardiomyopathy. Gastroesophageal reflux Cervical myelopathy Past Surgical History Partial colectomy Left lobectomy C5 6 and C6 7 ACDF Reported Medications Reported Meds & Active Scripts Active Hydrocodone-Acetaminophen 10-325 mg Tab 1 Tab PO Q4H PRN Social History Smokes one half pack cigarettes a day Drinks alcohol occasionally Physical Exam Vital Signs Vital Signs Date Time Temp Pulse Resp B/P Pulse Ox O2 Delivery O2 Flow Rate FiO2 03/17/17 12:00 97.7 62 18 112/59 98 03/17/17 08:40 Room Air 03/17/17 08:12 72 03/17/17 08:00 97.6 67 18 111/65 97 03/17/17 04:00 Room Air 03/17/17 04:00 97.7 68 18 100/56 95 03/17/17 01:00 64 03/17/17 00:36 98.6 65 18 114/56 96 03/17/17 00:36 Room Air 03/17/17 00:00 98.1 94 14 134/68 98 Room Air 03/16/17 23:10 96 16 126/72 97 Room Air 03/16/17 22:20 98 16 144/76 96 Room Air 03/16/17 20:15 101.0 03/16/17 19:00 99.4 104 16 128/70 95 Room Air Physical Exam GENERAL: This is a well-nourished, well-developed patient, in no apparent distress. SKIN: Neck incision dry and intact. No significant edema erythema or excessive postoperative tenderness. HEAD: Atraumatic. Normocephalic. No temporal or scalp tenderness. EYES: Sclerae are clear and nonicteric ENT: Oropharynx clear NECK: No nuchal rigidity. Mild to moderate diffuse neck tenderness CARDIOVASCULAR: Heart rate regular RESPIRATORY: Clear nonlabored respirations. No stridor. No wheezing GASTROINTESTINAL: Abdomen soft, non-tender, nondistended. No hepato-splenomegaly , or palpable masses. No guarding. MUSCULOSKELETAL: No significant extremity edema or cyanosis. No significant joint tenderness with range of motion. NEUROLOGICAL: Awake and alert Oriented times 3 Speech is clear Conversant and appropriate Follow simple commands well Answers questions appropriately Reasonable judgment and insight Recent and remote memory are intact No evidence of anxiety or depression Extraocular movements intact Facial motor movements symmetric Mild decreased sensation at the fingertips of both hands to light touch Mild decreased sensation somewhat diffuse bilateral left greater than right proximal lower extremity Strength is decreased to approximately 3/5 left triceps, 3+/5 left wrist flexors , 4/5 left and 4+/5 right hand intrinsics. Strength is within normal limits and major flexion and extension groups in the lower extremities Hoffmans response absent bilateral No ankle clonus Laboratory Laboratory Tests Test 03/16/17 03/16/17 03/16/17 03/17/17 20:10 23:25 23:40 07:41 White Blood Count 8.6 6.6 Red Blood Count 3.91 3.73 Hemoglobin 13.2 12.5 Hematocrit 37.7 36.3 Mean Corpuscular Volume 96.5 97.5 Mean Corpuscular Hemoglobin 33.7 33.6 Mean Corpuscular Hemoglobin 34.9 34.4 Concent Red Cell Distribution Width 12.9 13.0 Platelet Count 207 193 Mean Platelet Volume 10.0 9.4 Neutrophils (%) (Auto) 68.8 52.1 Lymphocytes (%) (Auto) 16.5 27.6 Monocytes (%) (Auto) 10.1 14.1 Eosinophils (%) (Auto) 3.6 5.3 Basophils (%) (Auto) 1.0 0.9 Neutrophils # (Auto) 5.9 3.4 Lymphocytes # (Auto) 1.4 1.8 Monocytes # (Auto) 0.9 0.9 Eosinophils # (Auto) 0.3 0.4 Basophils # (Auto) 0.1 0.1 CBC Comment DIFF FINAL DIFF FINAL Differential Comment Erythrocyte Sedimentation Rate 36 Prothrombin Time 10.7 Prothromb Time International 1.0 Ratio Activated Partial 28.9 Thromboplast Time Sodium Level 140 141 Potassium Level 4.0 4.1 Chloride Level 104 105 Carbon Dioxide Level 26.2 30.0 Anion Gap 10 6 Blood Urea Nitrogen 11 11 Creatinine 1.07 0.88 Estimat Glomerular Filtration 74 93 Rate Random Glucose 131 105 Lactic Acid Level 2.1 0.9 Calcium Level 8.8 8.6 Total Bilirubin 0.3 0.3 Aspartate Amino Transf 19 16 (AST/SGOT) Alanine Aminotransferase 30 27 (ALT/SGPT) Alkaline Phosphatase 85 77 C-Reactive Protein 2.00 B-Type Natriuretic Peptide 19 Total Protein 6.8 6.4 Albumin 3.4 3.0 Urine Color YELLOW Urine Turbidity CLEAR Urine pH 6.0 Urine Specific [place] 1.022 Urine Protein NEG Urine Glucose (UA) NEG Urine Ketones NEG Urine Occult Blood NEG Urine Nitrite NEG Urine Bilirubin NEG Urine Urobilinogen LESS THAN 2.0 Urine Leukocyte Esterase NEG Urine RBC LESS THAN 1 Urine WBC 1 Microscopic Urinalysis Comment CATH-CULT NOT IND Date/Time Procedure Status Source Growth 03/16/17 20:15 Aerobic Blood Culture - Preliminary Resulted Blood Peripheral NO GROWTH IN 1 DAY 03/16/17 20:15 Anaerobic Blood Culture - Preliminary Resulted Blood Peripheral NO GROWTH IN 1 DAY Result Diagram: 03/17/17 0741 03/17/17 0741 Imaging 03/16/2017 MRI of the cervical, thoracic, lumbar spine with and without contrast images are reviewed by the undersigned. Patient has moderate fluid collection anterior to the cervical spine. Probable hematoma at the operative site without significant overall canal compromise. Agree with other findings as noted below. Chest X-Ray 03/16/171939 Signed Impressions: Service Date/Time: Thursday, March 16, 2017 19:46 - CONCLUSION: Mild left base atelectasis or consolidation. Dg Retana MD CT Angiography 03/16/171939 Signed Impressions: Service Date/Time: Thursday, March 16, 2017 22:48 - CONCLUSION: 1. Negative for pulmonary embolus. 2. Lung fibrotic changes most characteristic of idiopathic pulmonary fibrosis or usual interstitial pneumonitis if there is no underlying cause for pulmonary fibrosis. Borderline enlarged mediastinal and hilar lymph nodes. Fluid collection in the prevertebral region near the cervicothoracic junction better evaluated on recent MRI and possibly related to surgery. Eusebio Hopper MD Thoracic Spine MRI 03/16/17 Signed Impressions: Service Date/Time: Thursday, March 16, 2017 20:15 - CONCLUSION: Mild disc changes at the T5-T6, T7-T8 and T11-T12 levels as described above. An epidural fluid collection is not seen. Please see the cervical spine for description of a suspected inflammatory process in the lower cervical spine. Dg Retana MD Lumbar Spine MRI 03/16/17 Signed Impressions: Service Date/Time: Thursday, March 16, 2017 20:15 - CONCLUSION: 1. Degenerative changes of the lumbar spine are again seen with no evidence for osteomyelitis or discitis. Avila Sanchez MD Lower Extremity Ultrasound 03/16/17 Signed Impressions: Service Date/Time: Thursday, March 16, 2017 21:33 - CONCLUSION: No DVT. Dg Retana MD Cervical Spine MRI 03/16/17 Signed Impressions: Service Date/Time: Thursday, March 16, 2017 20:15 - CONCLUSION: 1. Status post anterior cervical fusion with an anterior cervical fusion plate extending from C5 through C7. Bone plugs are seen at the C5-C6 and C6-C7 levels. There is enhancement and increased signal within the disc at these levels. This could all be postoperative change. Some degree of superimposed inflammatory process in these regions cannot be excluded. 2. Edema seen throughout the prevertebral soft tissues being most prominent at the C7 level. At this level, there appears to be a more focal fluid collection seen abutting the anterior-inferior aspect of the anterior cervical fusion plate. This extends anteriorly and to the right. It extends over a 4.3 cm length. This likely represents a postoperative fluid collection such as a seroma or abscess. Dg Retana MD Assessment and Plan Assessment and Plan Impression: 1. Postoperative prevertebral fluid collection with mild epidural fluid collection. May represent postoperative changes. Postoperative infection remains in the differential diagnosis. 2. Possible sepsis. Blood cultures pending 3. Possible mild pneumonia Recommendations: Findings were discussed at length with the patient Options of observation versus exploration of the wound sites have been discussed. Incision is healing well, dry and intact without significant erythema or edema. His exam appears relatively stable postoperative except for increased left triceps weakness according to the patient. He does have some anticipated edema in the spinal cord postoperative period He is in agreement with conservative treatment. Pain medications adjusted and discussed with nursing staff He has been started on IV vancomycin/Rocephin/Zithromax last evening He will need follow-up imaging study probably within the next week depending on his clinical course. Anshul Nazario MD March 17, 2017 16:42
[2017-03-17] MEDS: HYDROmorphone HCL PF 2 MG/ML VIAL IV PUSH PRN ×2 (17:44→22:01)
[2017-03-18] VITALS (7 sets, daily range): BP systolic 103–121; BP diastolic 59–71; PULSE 61–69; RESP 18–20; TEMP 96.8–97.6; O2SAT 92–96
[2017-03-18] MEDS: VANCOMYCIN INJ 1,750 MG in SODIUM CHLORID 0.9% 500 ML INJ 500 ML IV SCH ×2 (00:07→14:50)
[2017-03-18] MEDS: ACETAMINOPHEN/HYDROcodone 325 MG/10 MG TAB PO PRN ×6 (00:08→21:27)
[2017-03-18] MEDS: HYDROmorphone HCL PF 2 MG/ML VIAL IV PUSH PRN ×6 (02:09→23:31)
[2017-03-18] MEDS: SODIUM CHLOR 0.9% 1000 ML INJ 1,000 ML IV SCH (05:12)
[2017-03-18] MEDS: cefTRIAXone INJ 2,000 MG in SODIUM CHLORIDE 0.9% INJ 100 ML IV SCH ×2 (08:32→20:06)
[2017-03-18] MEDS: SODIUM CHLORIDE 0.9% FLUSH 10 ML FLUSH IV FLUSH SCH ×2 (08:33→20:06)
[2017-03-18] MEDS ORDERED: PNEUMOCOCCAL POLYVALENT INJ 25 MCG/0.5 ML SYR IM ONE (10:00)
[2017-03-18] MEDS ORDERED: INFLUENZA VIRUS VACCINE (QUADRIVALENT) 0.5 ML SYR IM ONE (10:00)
--- NOTE | 2017-03-18 12:24 | HHI.PR ---
Subjective Remarks Follow-up sepsis, C-spine abscess and pneumonia. Complaining of a productive cough but no shortness of breath. States he is getting stronger. Discussed with RN Objective Vitals Vital Signs Date Time Temp Pulse Resp B/P Pulse Ox O2 Delivery O2 Flow Rate FiO2 03/18/17 09:40 20 03/18/17 08:00 96.8 67 20 107/71 95 03/18/17 04:00 97.2 61 18 105/60 95 03/18/17 00:00 97.3 62 18 110/63 96 03/18/17 00:00 Room Air 03/17/17 20:00 97.4 67 18 114/57 96 03/17/17 20:00 Room Air 03/17/17 19:35 75 03/17/17 16:00 98.0 79 16 138/81 98 I/O 03/17/17 03/17/17 03/17/17 03/18/17 03/18/17 03/18/17 07:00 15:00 23:00 07:00 15:00 23:00 Intake Total 1149 ml 1455 ml 918 ml 1404 ml Output Total 1000 ml Balance 149 ml 1455 ml 918 ml 1404 ml Intake Oral 480 ml 720 ml 240 ml 240 ml IV Total 669 ml 735 ml 678 ml 1164 ml Output Urine Total 1000 ml # Voids 2 2 # Bowel Movements 0 0 0 Result Diagram: 03/17/1741 03/17/17740 Imaging Last Impressions Chest X-Ray 03/16/171939 Signed Impressions: Service Date/Time: Thursday, March 16, 2017 19:46 - CONCLUSION: Mild left base atelectasis or consolidation. Dg Retana MD CT Angiography 03/16/171939 Signed Impressions: Service Date/Time: Thursday, March 16, 2017 22:48 - CONCLUSION: 1. Negative for pulmonary embolus. 2. Lung fibrotic changes most characteristic of idiopathic pulmonary fibrosis or usual interstitial pneumonitis if there is no underlying cause for pulmonary fibrosis. Borderline enlarged mediastinal and hilar lymph nodes. Fluid collection in the prevertebral region near the cervicothoracic junction better evaluated on recent MRI and possibly related to surgery. Eusebio Hopper MD Thoracic Spine MRI 03/16/17 0000 Signed Impressions: Service Date/Time: Thursday, March 16, 2017 20:15 - CONCLUSION: Mild disc changes at the T5-T6, T7-T8 and T11-T12 levels as described above. An epidural fluid collection is not seen. Please see the cervical spine for description of a suspected inflammatory process in the lower cervical spine. Dg Retana MD Lumbar Spine MRI 03/16/17 Signed Impressions: Service Date/Time: Thursday, March 16, 2017 20:15 - CONCLUSION: 1. Degenerative changes of the lumbar spine are again seen with no evidence for osteomyelitis or discitis. Avila Sanchez MD Lower Extremity Ultrasound 03/16/17 Signed Impressions: Service Date/Time: Thursday, March 16, 2017 21:33 - CONCLUSION: No DVT. Dg Retana MD Cervical Spine MRI 03/16/17 Signed Impressions: Service Date/Time: Thursday, March 16, 2017 20:15 - CONCLUSION: 1. Status post anterior cervical fusion with an anterior cervical fusion plate extending from C5 through C7. Bone plugs are seen at the C5-C6 and C6-C7 levels. There is enhancement and increased signal within the disc at these levels. This could all be postoperative change. Some degree of superimposed inflammatory process in these regions cannot be excluded. 2. Edema seen throughout the prevertebral soft tissues being most prominent at the C7 level. At this level, there appears to be a more focal fluid collection seen abutting the anterior-inferior aspect of the anterior cervical fusion plate. This extends anteriorly and to the right. It extends over a 4.3 cm length. This likely represents a postoperative fluid collection such as a seroma or abscess. Dg Retana MD Objective Remarks GENERAL: Well-developed obese in no distress SKIN: Warm and dry. HEAD: Atraumatic. Normocephalic. EYES: Pupils equal and round. No scleral icterus. No injection or drainage. ENT: No nasal bleeding or discharge. Mucous membranes pink and moist. NECK: Trachea midline. No JVD. CARDIOVASCULAR: Regular rate and rhythm. RESPIRATORY: No accessory muscle use. Clear to auscultation. Breath sounds equal bilaterally. GASTROINTESTINAL: Abdomen soft, non-tender, nondistended. MUSCULOSKELETAL: Extremities without clubbing, cyanosis but with bilateral lower extremity pitting edema. No obvious deformities. NEUROLOGICAL: Awake and alert. No obvious cranial nerve deficits. Motor grossly within normal limits. Five out of 5 muscle strength in the arms and legs. Normal speech. Nonfocal PSYCHIATRIC: Appropriate mood and affect; insight and judgment normal. A/P Problem List: (1) Sepsis ICD Code: A41.9 Status: Acute (2) Abscess ICD Code: L02.91 Status: Acute (3) PNA (pneumonia) ICD Code: J18.9 Status: Acute (4) Tobacco abuse ICD Code: Z72.0 Status: Chronic Assessment and Plan 1. Sepsis: Temp 101.0, HR 120's, Lactic Acid 2.1, Source-likely C-Spine abscess, s/p Blood Cultures, Vanc/Rocephin/Zithro in ER. Repeat Lactic Acid now normalized at 0.9. Follow up cultures, continue IV Abx. Improving 2. Possible C-Spine Abscess: s/p ACDF C5-C7 secondary to cord compression by Dr. Ortiz, now w/ fever and complaints of neck pain. MRI C-Spine w/ fluid collection, possibly seroma vs abscess, images reviewed by me. Dr. Nazario consulted by ER physician, recommended continuation of IV Abx and will follow- up for decision regarding surgical intervention. Analgesics/antiemetics as needed. IV Abx as above. Counseled regarding narcotics switch to Lortab and IV morphine for breakthrough pain. Repeat imaging study sometime this week 3. PNA: CXR w/ mild left base consolidation, CTA Pulm negative for PE, fibrotic changes possibly IPF or interstitial pneumonitis, will continue w/ IV Abx. DuoNeb prn as needed. Consider switching to Zosyn if patient continues to have fever. Stable check sputum culture, urinary Legionella and pneumococcal antigen 4. Tobacco Abuse: Pt counselled. NicoDerm prn if needed. 5. DVT Prophylaxis: SCD/Teds. Discharge Planning Not ready for discharge Problem Qualifiers (1) Sepsis: Qualified Code: A41.9 - Sepsis, due to unspecified organism (2) PNA (pneumonia): Qualified Code: J18.1 - Pneumonia of left lower lobe due to infectious organism Santiago Gardner MD March 18, 2017 12:24
[2017-03-18] MEDS ORDERED: PHARMACY ORDERED LAB ONE (12:45)
--- NOTE | 2017-03-18 14:45 | HHI.NSPN ---
Note Status Status: Progress Note Interval History Interval History The patient is a 46-year-old male who recently underwent C5 6 and C6 7 anterior cervical discectomy and interbody fusion with PEEK cage on 03/01/17 due to significant disc herniation and spinal stenosis with myelopathy. The patient presented back to the emergency room last evening with complaint of intermittent fevers and chills for the past few days as well as increasing upper extremity edema. He also reports possibly some increased numbness in the left upper extremity although this was also present preoperatively. Also indicates persistent left greater than right lower extremity sensory changes although not significantly changed since surgery. He does indicate that his ambulation has significantly improved postoperatively, now able ambulate reasonably well, with his gait markedly impaired prior to surgery. He does complain of some difficulty swallowing and sore throat. No significant hoarseness of voice. 03/18: c/o feeling swollen in the arms, hands, legs, and neck. follow up MRI C spine obtained. Labs, Micro, & Vital Signs Results Date Time Temp Pulse Resp B/P Pulse Ox O2 Delivery O2 Flow Rate FiO2 03/18/17 12:00 97.4 69 20 103/59 95 03/18/17 11:00 18 03/18/17 09:40 20 03/18/17 08:00 96.8 67 20 107/71 95 03/18/17 04:00 97.2 61 18 105/60 95 03/18/17 00:00 97.3 62 18 110/63 96 03/18/17 00:00 Room Air 03/17/17 20:00 97.4 67 18 114/57 96 03/17/17 20:00 Room Air 03/17/17 19:35 75 03/17/17 16:00 98.0 79 16 138/81 98 03/18/17 07:00 Intake Total 3777 ml Balance 3777 ml Constitutional Vital Signs Date Time Temp Pulse Resp B/P Pulse Ox O2 Delivery O2 Flow Rate FiO2 03/18/17 12:00 97.4 69 20 103/59 95 03/18/17 11:00 18 03/18/17 09:40 20 03/18/17 08:00 96.8 67 20 107/71 95 03/18/17 04:00 97.2 61 18 105/60 95 03/18/17 00:00 97.3 62 18 110/63 96 03/18/17 00:00 Room Air 03/17/17 20:00 97.4 67 18 114/57 96 03/17/17 20:00 Room Air 03/17/17 19:35 75 03/17/17 16:00 98.0 79 16 138/81 98 03/18/17 07:00 Intake Total 3777 ml Balance 3777 ml Review of Systems/Exam Exam Mr. Vázquez is alert and oriented to time, place and person. Speech is fluent. Cervical wound is healing well, no swelling, drainage, warmth or other evidence of infection. Cranial nerve: pupils equal, round and reactive to light. Facial motor are normal and symmetrical. Neck limited range of motion due to postoperative condition. 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 Sensory examination diminished sensation to fingers bilaterally There is a bilateral plantar flexion response. Sims's sign negative b/l. Medications Current Medications Current Medications Medications (Trade) Dose Ordered Sig/Jon Route PRN Reason Start Time Stop Time Status Last Admin Dose Admin Pharmacy Profile Note (Vancomycin Consult Pharmacy) 0 ml @ 0 mls/hr UNSCH OTHER 03/16/17 23:15 Sodium Chloride (NS Flush) 2 ml UNSCH PRN IV FLUSH FLUSH AFTER USING IV ACCESS 03/16/17 23:15 Sodium Chloride (NS Flush) 2 ml BID IV FLUSH 03/17/17 09:00 03/17/17 20:03 Ondansetron HCl (Zofran Inj) 4 mg Q6H PRN IVP NAUSEA OR VOMITING 03/16/17 23:15 Bisacodyl (Dulcolax Supp) 10 mg DAILY PRN RECTAL CONSTIPATION 03/16/17 23:15 Acetaminophen (Tylenol) 650 mg Q6H PRN PO FEVER/PAIN SCALE 1 TO 2 03/16/17 23:15 Acetaminophen/ Hydrocodone Bitart 1 tab 1 tab Q4H PRN PO PAIN SCALE 3-5 03/16/17 23:15 03/17/17 16:15 Ceftriaxone Sodium 2000 mg/ Sodium Chloride 100 ml @ 200 mls/hr Q12H IV 03/17/17 09:00 03/18/17 08:32 Vancomycin HCl/ Sodium Chloride (Vancomycin Inj/ NS 500 ml Inj) 517.5 ml @ 250 mls/hr Q12H IV 03/17/17 13:00 03/18/17 00:07 Oxybenzone/ Padimate O/ Dimethicone (Blistex Lip [place]) 1 applic UNSCH PRN TOPICAL CHAPPED LIPS 03/17/17 15:00 03/17/17 22:07 Hydromorphone HCl (Dilaudid Pf Inj) 2 mg Q4H PRN IV PUSH BREAKTHROUGH PAIN 03/17/17 16:30 03/18/17 10:30 Acetaminophen/ Hydrocodone Bitart ([place] 10-325 Mg) 2 tab Q4H PRN PO PAIN SCALE 6 TO 10 03/17/17 16:30 03/18/17 12:49 Medical Decision Making MDM Remarks 46 y/o male s/p ACDF, cervical wound healing well without evidence of infection pneumonia Plan Plan Remarks MRI C spine reviewed by Dr. Diana han current medical management for pneumonia cont maintain nikolski collar cont activity restrictions Ashely Alford March 18, 2017 14:45
[2017-03-19] VITALS: BP 113/60; PULSE 59; RESP 17; TEMP 98.1; O2SAT 93
[2017-03-19] MEDS: VANCOMYCIN INJ 1,750 MG in SODIUM CHLORID 0.9% 500 ML INJ 500 ML IV SCH ×2 (01:30→13:32)
[2017-03-19] MEDS: ACETAMINOPHEN/HYDROcodone 325 MG/10 MG TAB PO PRN ×6 (01:33→21:44)
[2017-03-19] MEDS: HYDROmorphone HCL PF 2 MG/ML VIAL IV PUSH PRN ×5 (03:28→19:56)
[2017-03-19 04:00] VITALS: BP_SYST 123; BP_SYST 132; BP_DIAS 65; BP_DIAS 74; PULSE 61; RESP 18; TEMP 98; O2SAT 93
[2017-03-19] MEDS: SODIUM CHLORIDE 0.9% FLUSH 10 ML FLUSH IV FLUSH SCH ×2 (07:44→21:00)
[2017-03-19 08:00] VITALS: BP 110/62; PULSE 59; RESP 18; TEMP 97.4
[2017-03-19] MEDS: cefTRIAXone INJ 2,000 MG in SODIUM CHLORIDE 0.9% INJ 100 ML IV SCH ×2 (09:13→21:04)
[2017-03-19] MEDS: SODIUM CHLORIDE 0.9% FLUSH 10 ML FLUSH IV FLUSH PRN ×3 (09:14→13:32)
[2017-03-19 12:00] VITALS: BP 110/62; PULSE 62; RESP 18; TEMP 97.8; O2SAT 93
--- NOTE | 2017-03-19 14:59 | HHI.PR ---
Subjective Remarks Follow-up possible C-spine abscess and pneumonia. Complaining of constipation and denies nausea and abdominal pain. Requesting physical therapy. Discussed with RN Objective Vitals Vital Signs Date Time Temp Pulse Resp B/P Pulse Ox O2 Delivery O2 Flow Rate FiO2 03/19/17 12:00 97.8 62 18 110/62 93 03/19/17 09:15 Room Air 03/19/17 08:00 97.4 59 18 110/62 03/19/17 04:00 98.0 61 18 123/65 93 03/19/17 04:00 Room Air 03/19/17 00:00 98.1 59 17 113/60 93 03/19/17 00:00 Room Air 03/18/17 21:04 65 03/18/17 20:00 Room Air 03/18/17 20:00 97.4 62 18 121/71 92 03/18/17 19:33 18 03/18/17 18:16 96 Room Air 03/18/17 17:45 18 03/18/17 16:00 97.6 69 20 113/66 96 I/O 03/18/17 03/18/17 03/18/17 03/19/17 03/19/17 03/19/17 06:59 14:59 22:59 06:59 14:59 22:59 Intake Total 1404 ml 600 ml 100 ml 1048 ml Balance 1404 ml 600 ml 100 ml 1048 ml Intake Oral 240 ml 600 ml 480 ml IV Total 1164 ml 100 ml 568 ml # Voids 2 3 3 # Bowel Movements 0 0 Result Diagram: 03/17/17 0741 03/19/17 0759 Imaging Last Impressions Chest X-Ray 03/16/171939 Signed Impressions: Service Date/Time: Thursday, March 16, 2017 19:46 - CONCLUSION: Mild left base atelectasis or consolidation. Dg Retana MD CT Angiography 03/16/171939 Signed Impressions: Service Date/Time: Thursday, March 16, 2017 22:48 - CONCLUSION: 1. Negative for pulmonary embolus. 2. Lung fibrotic changes most characteristic of idiopathic pulmonary fibrosis or usual interstitial pneumonitis if there is no underlying cause for pulmonary fibrosis. Borderline enlarged mediastinal and hilar lymph nodes. Fluid collection in the prevertebral region near the cervicothoracic junction better evaluated on recent MRI and possibly related to surgery. Eusebio Hopper MD Thoracic Spine MRI 03/16/17 Signed Impressions: Service Date/Time: Thursday, March 16, 2017 20:15 - CONCLUSION: Mild disc changes at the T5-T6, T7-T8 and T11-T12 levels as described above. An epidural fluid collection is not seen. Please see the cervical spine for description of a suspected inflammatory process in the lower cervical spine. Dg Retana MD Lumbar Spine MRI 03/16/17 Signed Impressions: Service Date/Time: Thursday, March 16, 2017 20:15 - CONCLUSION: 1. Degenerative changes of the lumbar spine are again seen with no evidence for osteomyelitis or discitis. Avila Sanchez MD Lower Extremity Ultrasound 03/16/17 Signed Impressions: Service Date/Time: Thursday, March 16, 2017 21:33 - CONCLUSION: No DVT. Dg Retana MD Cervical Spine MRI 03/16/17 Signed Impressions: Service Date/Time: Thursday, March 16, 2017 20:15 - CONCLUSION: 1. Status post anterior cervical fusion with an anterior cervical fusion plate extending from C5 through C7. Bone plugs are seen at the C5-C6 and C6-C7 levels. There is enhancement and increased signal within the disc at these levels. This could all be postoperative change. Some degree of superimposed inflammatory process in these regions cannot be excluded. 2. Edema seen throughout the prevertebral soft tissues being most prominent at the C7 level. At this level, there appears to be a more focal fluid collection seen abutting the anterior-inferior aspect of the anterior cervical fusion plate. This extends anteriorly and to the right. It extends over a 4.3 cm length. This likely represents a postoperative fluid collection such as a seroma or abscess. Dg Retana MD Objective Remarks GENERAL: Well-developed obese in no distress SKIN: Warm and dry. HEAD: Atraumatic. Normocephalic. EYES: Pupils equal and round. No scleral icterus. No injection or drainage. ENT: No nasal bleeding or discharge. Mucous membranes pink and moist. NECK: Trachea midline. No JVD. CARDIOVASCULAR: Regular rate and rhythm. RESPIRATORY: No accessory muscle use. Clear to auscultation. Breath sounds equal bilaterally. GASTROINTESTINAL: Abdomen soft, non-tender, nondistended. MUSCULOSKELETAL: Extremities without clubbing, cyanosis but with bilateral lower extremity pitting edema. No obvious deformities. NEUROLOGICAL: Awake and alert. No obvious cranial nerve deficits. Motor grossly within normal limits. Five out of 5 muscle strength in the arms and legs. Normal speech. PSYCHIATRIC: Appropriate mood and affect; insight and judgment normal. A/P Problem List: (1) Sepsis ICD Code: A41.9 Status: Acute (2) Abscess ICD Code: L02.91 Status: Acute (3) PNA (pneumonia) ICD Code: J18.9 Status: Acute (4) Tobacco abuse ICD Code: Z72.0 Status: Chronic Assessment and Plan 1. Sepsis: Temp 101.0, HR 120's, Lactic Acid 2.1, Source-likely C-Spine abscess, s/p Blood Cultures, Vanc/Rocephin/Zithro in ER. Repeat Lactic Acid now normalized at 0.9. Follow up cultures, continue IV Abx. Improving 2. Possible C-Spine Abscess: s/p ACDF C5-C7 secondary to cord compression by Dr. Ortiz, now w/ fever and complaints of neck pain. MRI C-Spine w/ fluid collection, possibly seroma vs abscess, images reviewed by me. Dr. Nazario consulted by ER physician, recommended continuation of IV Abx and will follow- up for decision regarding surgical intervention. Analgesics/antiemetics as needed. IV Abx as above. Counseled regarding narcotics switch to Lortab and IV morphine for breakthrough pain. Repeat imaging study sometime this week. PT evaluation 3. PNA: CXR w/ mild left base consolidation, CTA Pulm negative for PE, fibrotic changes possibly IPF or interstitial pneumonitis, will continue w/ IV Abx. DuoNeb prn as needed. Consider switching to Zosyn if patient continues to have fever. Stable check sputum culture, urinary Legionella and pneumococcal antigen requested 4. Tobacco Abuse: Pt counselled. NicoDerm prn if needed. 5. Constipation. Start Danna-Colace DVT Prophylaxis: SCD/Teds. Discharge Planning Not ready for discharge Problem Qualifiers (1) Sepsis: Qualified Code: A41.9 - Sepsis, due to unspecified organism (2) PNA (pneumonia): Qualified Code: J18.1 - Pneumonia of left lower lobe due to infectious organism Santiago Gardner MD March 19, 2017 14:59
[2017-03-19] MEDS: DOCUSATE SODIUM 50 MG/SENNA 8.6 MG TAB PO SCH (16:09)
[2017-03-19 16:12] VITALS: BP 113/62; PULSE 73; RESP 18; TEMP 97.8; O2SAT 94
[2017-03-19 20:00] VITALS: BP 115/72; PULSE 64; RESP 18; TEMP 97.6; O2SAT 96
[2017-03-20] VITALS: BP 117/63; PULSE 69; RESP 18; TEMP 97.8; O2SAT 94
[2017-03-20] MEDS: VANCOMYCIN INJ 1,750 MG in SODIUM CHLORID 0.9% 500 ML INJ 500 ML IV SCH ×2 (00:28→12:40)
[2017-03-20] MEDS: HYDROmorphone HCL PF 2 MG/ML VIAL IV PUSH PRN ×6 (00:28→20:48)
[2017-03-20] MEDS ORDERED: PHARMACY ORDERED LAB ONE (00:45)
[2017-03-20] MEDS: ACETAMINOPHEN/HYDROcodone 325 MG/10 MG TAB PO PRN ×6 (01:39→22:42)
[2017-03-20 01:57] LABS: VANCOMYCIN TROUGH 16.7 MCG/ML (5.0-10.0)
[2017-03-20 04:00] VITALS: BP 119/78; PULSE 71; RESP 18; TEMP 97.7; O2SAT 97
[2017-03-20] MEDS: BISACODYL 10 MG SUPP RECTAL PRN (06:23)
[2017-03-20 08:00] VITALS: BP 116/62; PULSE 62; RESP 18; TEMP 97.8; O2SAT 95
[2017-03-20] MEDS: DOCUSATE SODIUM 50 MG/SENNA 8.6 MG TAB PO SCH (08:45)
[2017-03-20] MEDS: SODIUM CHLORIDE 0.9% FLUSH 10 ML FLUSH IV FLUSH SCH ×2 (08:45→20:47)
[2017-03-20] MEDS: cefTRIAXone INJ 2,000 MG in SODIUM CHLORIDE 0.9% INJ 100 ML IV SCH (08:45)
[2017-03-20] MEDS ORDERED: MAGNESIUM CITRATE SOLN 300 ML BTL PO ONE (08:45)
--- NOTE | 2017-03-20 11:11 | HHI.PR ---
Subjective Remarks Follow-up sepsis and possible C-spine abscess and pneumonia. States he is doing better with no shortness of breath. No fever. He now agrees to be on Lasix for his bilateral lower extremity swelling. Discussed with neurosurgery who does not think patient has C-spine abscess. Abnormal spine MRI findings related to postoperative changes Objective Vitals Vital Signs Date Time Temp Pulse Resp B/P Pulse Ox O2 Delivery O2 Flow Rate FiO2 03/20/17 09:18 16 03/20/17 08:40 Room Air 03/20/17 08:00 97.8 62 18 116/62 95 03/20/17 07:40 16 03/20/17 04:00 97.7 71 18 119/78 97 03/20/17 00:00 97.8 69 18 117/63 94 03/19/17 20:00 97.6 64 18 115/72 96 03/19/17 19:47 Room Air 03/19/17 16:12 97.8 73 18 113/62 94 03/19/17 12:00 97.8 62 18 110/62 93 I/O 03/19/17 03/19/17 03/19/17 03/20/17 03/20/17 03/20/17 07:00 15:00 23:00 07:00 15:00 23:00 Intake Total 1048 ml 960 ml 1080 ml 480 ml Balance 1048 ml 960 ml 1080 ml 480 ml Intake Oral 480 ml 960 ml 480 ml 480 ml IV Total 568 ml 600 ml # Voids 3 2 2 3 # Bowel Movements 0 0 0 1 Result Diagram: 03/17/17 0741 03/20/17 0129 Imaging Last Impressions Chest X-Ray 03/16/171939 Signed Impressions: Service Date/Time: Thursday, March 16, 2017 19:46 - CONCLUSION: Mild left base atelectasis or consolidation. Dg Retana MD CT Angiography 03/16/171939 Signed Impressions: Service Date/Time: Thursday, March 16, 2017 22:48 - CONCLUSION: 1. Negative for pulmonary embolus. 2. Lung fibrotic changes most characteristic of idiopathic pulmonary fibrosis or usual interstitial pneumonitis if there is no underlying cause for pulmonary fibrosis. Borderline enlarged mediastinal and hilar lymph nodes. Fluid collection in the prevertebral region near the cervicothoracic junction better evaluated on recent MRI and possibly related to surgery. Eusebio Hopper MD Thoracic Spine MRI 03/16/17 Signed Impressions: Service Date/Time: Thursday, March 16, 2017 20:15 - CONCLUSION: Mild disc changes at the T5-T6, T7-T8 and T11-T12 levels as described above. An epidural fluid collection is not seen. Please see the cervical spine for description of a suspected inflammatory process in the lower cervical spine. Dg Retana MD Lumbar Spine MRI 03/16/17 Signed Impressions: Service Date/Time: Thursday, March 16, 2017 20:15 - CONCLUSION: 1. Degenerative changes of the lumbar spine are again seen with no evidence for osteomyelitis or discitis. Avila Sanchez MD Lower Extremity Ultrasound 03/16/17 Signed Impressions: Service Date/Time: Thursday, March 16, 2017 21:33 - CONCLUSION: No DVT. Dg Retana MD Cervical Spine MRI 03/16/17 Signed Impressions: Service Date/Time: Thursday, March 16, 2017 20:15 - CONCLUSION: 1. Status post anterior cervical fusion with an anterior cervical fusion plate extending from C5 through C7. Bone plugs are seen at the C5-C6 and C6-C7 levels. There is enhancement and increased signal within the disc at these levels. This could all be postoperative change. Some degree of superimposed inflammatory process in these regions cannot be excluded. 2. Edema seen throughout the prevertebral soft tissues being most prominent at the C7 level. At this level, there appears to be a more focal fluid collection seen abutting the anterior-inferior aspect of the anterior cervical fusion plate. This extends anteriorly and to the right. It extends over a 4.3 cm length. This likely represents a postoperative fluid collection such as a seroma or abscess. Dg Retana MD Objective Remarks GENERAL: Well-developed obese in no distress SKIN: Warm and dry. HEAD: Atraumatic. Normocephalic. EYES: Pupils equal and round. No scleral icterus. No injection or drainage. ENT: No nasal bleeding or discharge. Mucous membranes pink and moist. NECK: Trachea midline. No JVD. CARDIOVASCULAR: Regular rate and rhythm. RESPIRATORY: No accessory muscle use. Clear to auscultation. Breath sounds equal bilaterally. GASTROINTESTINAL: Abdomen soft, non-tender, nondistended. MUSCULOSKELETAL: Extremities without clubbing, cyanosis but with bilateral lower extremity pitting edema. No obvious deformities. NEUROLOGICAL: Awake and alert. No obvious cranial nerve deficits. Motor grossly within normal limits. Five out of 5 muscle strength in the arms and legs. Normal speech. PSYCHIATRIC: Appropriate mood and affect; insight and judgment normal. A/P Problem List: (1) Sepsis ICD Code: A41.9 Status: Acute (2) Abscess ICD Code: L02.91 Status: Acute (3) PNA (pneumonia) ICD Code: J18.9 Status: Acute (4) Tobacco abuse ICD Code: Z72.0 Status: Chronic Assessment and Plan 1. Sepsis: Temp 101.0, HR 120's, Lactic Acid 2.1, Source-likely C-Spine abscess, s/p Blood Cultures, Vanc/Rocephin/Zithro in ER. Repeat Lactic Acid now normalized at 0.9. Follow up cultures, continue IV Abx. Improving 2. Possible C-Spine Abscess: s/p ACDF C5-C7 secondary to cord compression by Dr. Ortiz, now w/ fever and complaints of neck pain. MRI C-Spine w/ fluid collection, possibly seroma vs abscess, images reviewed by me. Dr. Nazario consulted by ER physician, recommended continuation of IV Abx and will follow- up for decision regarding surgical intervention. Analgesics/antiemetics as needed. IV Abx as above. Counseled regarding narcotics switch to Lortab and IV morphine for breakthrough pain. Dr. Ortiz does not think patient has C- spine abscess. Physical therapy evaluation 3. PNA: CXR w/ mild left base consolidation, CTA Pulm negative for PE, fibrotic changes possibly IPF or interstitial pneumonitis, will continue with Abx switch to by mouth Ceftin and Zithromax. DuoNeb prn as needed. Consider switching to Zosyn if patient continues to have fever. Stable check sputum culture, urinary Legionella and pneumococcal antigen requested. Switch to by mouth Ceftin and start Zithromax 4. Bilateral lower extremity edema. BNP within normal limits. Likely related to fluid overload. Gentle diuresis with potassium supplementation. Repeat BMP and magnesium in the morning 5. Tobacco Abuse: Pt counselled. NicoDerm prn if needed. 6. Constipation. Continue Danna-Colace DVT Prophylaxis: SCD/Teds. Discharge Planning Possible discharge in the morning Problem Qualifiers (1) Sepsis: Qualified Code: A41.9 - Sepsis, due to unspecified organism (2) PNA (pneumonia): Qualified Code: J18.1 - Pneumonia of left lower lobe due to infectious organism Santiago Gardner MD March 20, 2017 11:11
[2017-03-20 11:51] VITALS: BP 116/66; PULSE 68; RESP 18; TEMP 97.6; O2SAT 96
[2017-03-20] MEDS: POTASSIUM CHLORIDE 10 MEQ CONTROLLED RELEASE TAB PO SCH ×2 (12:37→20:47)
[2017-03-20] MEDS ORDERED: AZIT250T3 PO (12:52)
--- NOTE | 2017-03-20 12:52 | HHI.DCPOC ---
Discharge Care Plan Diagnosis: (1) PNA (pneumonia) (2) Sepsis Your Health Problems Are: Difficulty with ADL Exercise Tolerance Goals to Promote Your Health * To prevent worsening of your condition and complications * To maintain your health at the optimal level Directions to Meet Your Goals Take your medications as prescribed Follow your dietary instruction Follow activity as directed Keep your appointments as scheduled Take your immunizations and boosters as scheduled If your symptoms worsen call your PCP, if no PCP go to Urgent Care Center or Emergency Room Smoking is Dangerous to Your Health. Avoid second hand smoke Call the 24-hour hour crisis hotline for domestic abuse at Santiago Gardner MD March 20, 2017 12:52
[2017-03-20] MEDS ORDERED: AZITHROMYCIN 250 MG TAB PO ONE (13:00)
--- NOTE | 2017-03-20 15:34 | HHI.NSPN ---
(Ashely Alford) Note Status Status: Progress Note (Ashely Alford) Interval History Interval History The patient is a 46-year-old male who recently underwent C5 6 and C6 7 anterior cervical discectomy and interbody fusion with PEEK cage on 03/01/17 due to significant disc herniation and spinal stenosis with myelopathy. The patient presented back to the emergency room last evening with complaint of intermittent fevers and chills for the past few days as well as increasing upper extremity edema. He also reports possibly some increased numbness in the left upper extremity although this was also present preoperatively. Also indicates persistent left greater than right lower extremity sensory changes although not significantly changed since surgery. He does indicate that his ambulation has significantly improved postoperatively, now able ambulate reasonably well, with his gait markedly impaired prior to surgery. He does complain of some difficulty swallowing and sore throat. No significant hoarseness of voice. 03/18: c/o feeling swollen in the arms, hands, legs, and neck. follow up MRI C spine obtained. 03/20: swelling a bit better, he has been afebrile. (Ashely Alford) Labs, Micro, & Vital Signs Results Date Time Temp Pulse Resp B/P Pulse Ox O2 Delivery O2 Flow Rate FiO2 03/20/17 13:06 16 03/20/17 11:51 97.6 68 18 116/66 96 03/20/17 11:35 16 03/20/17 08:40 Room Air 03/20/17 08:00 97.8 62 18 116/62 95 03/20/17 04:00 97.7 71 18 119/78 97 03/20/17 00:00 97.8 69 18 117/63 94 03/19/17 20:00 97.6 64 18 115/72 96 03/19/17 19:47 Room Air 03/19/17 16:12 97.8 73 18 113/62 94 03/20/17 07:00 Intake Total 2520 ml Balance 2520 ml Constitutional Vital Signs Date Time Temp Pulse Resp B/P Pulse Ox O2 Delivery O2 Flow Rate FiO2 03/20/17 13:06 16 03/20/17 11:51 97.6 68 18 116/66 96 03/20/17 11:35 16 03/20/17 08:40 Room Air 03/20/17 08:00 97.8 62 18 116/62 95 03/20/17 04:00 97.7 71 18 119/78 97 03/20/17 00:00 97.8 69 18 117/63 94 03/19/17 20:00 97.6 64 18 115/72 96 03/19/17 19:47 Room Air 03/19/17 16:12 97.8 73 18 113/62 94 03/20/17 07:00 Intake Total 2520 ml Balance 2520 ml (Ashely Alford) Review of Systems/Exam Exam Mr. Vázquez is alert and oriented to time, place and person. Speech is fluent. Cervical wound is healing well, no swelling, drainage, warmth or other evidence of infection. Cranial nerve: pupils equal, round and reactive to light. Facial motor are normal and symmetrical. Neck limited range of motion due to postoperative condition. Motor: moves all major muscle groups well He had diffuse edema in his extremities. Sensory examination diminished sensation to fingers bilaterally There is a bilateral plantar flexion response. Sims's sign negative b/l. (Ashely Alford) Medications Current Medications Current Medications Medications (Trade) Dose Ordered Sig/Jon Route PRN Reason Start Time Stop Time Status Last Admin Dose Admin Sodium Chloride (NS Flush) 2 ml UNSCH PRN IV FLUSH FLUSH AFTER USING IV ACCESS 03/16/17 23:15 03/19/17 13:32 Sodium Chloride (NS Flush) 2 ml BID IV FLUSH 03/17/17 09:00 03/20/17 08:45 Ondansetron HCl (Zofran Inj) 4 mg Q6H PRN IVP NAUSEA OR VOMITING 03/16/17 23:15 Bisacodyl (Dulcolax Supp) 10 mg DAILY PRN RECTAL CONSTIPATION 03/16/17 23:15 03/20/17 06:23 Acetaminophen (Tylenol) 650 mg Q6H PRN PO FEVER/PAIN SCALE 1 TO 2 03/16/17 23:15 Acetaminophen/ Hydrocodone Bitart ([place] 10-325 Mg) 1 tab Q4H PRN PO PAIN SCALE 3-5 03/16/17 23:15 03/17/17 16:15 Oxybenzone/ Padimate O/ Dimethicone (Blistex Lip [place]) 1 applic UNSCH PRN TOPICAL CHAPPED LIPS 03/17/17 15:00 03/17/17 22:07 Hydromorphone HCl (Dilaudid Pf Inj) 2 mg Q4H PRN IV PUSH BREAKTHROUGH PAIN 03/17/17 16:30 03/20/17 12:39 Acetaminophen/ Hydrocodone Bitart ([place] 10-325 Mg) 2 tab Q4H PRN PO PAIN SCALE 6 TO 10 03/17/17 16:30 03/20/17 14:33 Senna/Docusate Sodium (Danna-Colace) 2 tab DAILY PO 03/19/17 15:00 03/20/17 08:45 Furosemide (Lasix Inj) 20 mg BID@09,18 IV PUSH 03/20/17 18:00 Potassium Chloride (KCl) 10 meq Q12HR PO 03/20/17 11:15 03/20/17 12:37 Cefuroxime Axetil (Ceftin) 500 mg Q12HR PO 03/20/17 21:00 03/30/17 20:59 Azithromycin (Zithromax) 250 mg Q24H PO 03/21/17 13:00 03/25/17 12:59 (Ashely Alford) Medical Decision Making MDM Remarks 46 y/o male s/p ACDF no evidence of cervical wound infection pneumonia (Ashely Alford) Plan Plan Remarks cont current medical management, cont maintain reno-sparks collar pt clear for dc from NRS standpoint (Ashely Alford) Attending Statement The exam, history, and the medical decision-making described in the above note were completed with the assistance of the mid-level provider. I reviewed and agree with the findings presented. I attest that I had a [id number] encounter with the patient on the same day, and personally performed and documented my assessment and findings in the medical record. (Kavon Ortiz MD) Ashely Alford March 20, 2017 15:33 Kavon Ortiz MD March 25, 2017 12:38
[2017-03-20] MEDS: FUROSEMIDE 20 MG/2 ML VIAL IV PUSH SCH (17:07)
[2017-03-20] MEDS: SODIUM CHLORIDE 0.9% FLUSH 10 ML FLUSH IV FLUSH PRN (17:09)
[2017-03-20 20:00] VITALS: BP 129/72; PULSE 67; RESP 18; TEMP 97.7; O2SAT 96
[2017-03-20 20:20] VITALS: PULSE 57
[2017-03-20] MEDS: CEFUROXIME AXETIL 500 MG TAB PO SCH (20:47)
[2017-03-21] VITALS: BP 108/63; PULSE 68; RESP 18; TEMP 98; O2SAT 98
[2017-03-21] MEDS: SODIUM CHLORIDE 0.9% FLUSH 10 ML FLUSH IV FLUSH PRN ×2 (00:45→04:51)
[2017-03-21] MEDS: HYDROmorphone HCL PF 2 MG/ML VIAL IV PUSH PRN ×4 (00:45→14:22)
[2017-03-21] MEDS: ACETAMINOPHEN/HYDROcodone 325 MG/10 MG TAB PO PRN ×3 (02:44→11:33)
[2017-03-21 04:00] VITALS: BP 115/63; PULSE 68; RESP 18; TEMP 97.5; O2SAT 95
[2017-03-21] MEDS: BISACODYL 10 MG SUPP RECTAL PRN (04:51)
[2017-03-21 08:00] VITALS: BP 108/58; PULSE 65; RESP 20; TEMP 97.8; O2SAT 96
[2017-03-21 08:16] LABS: BICARBONATE 28.3 MEQ/L (21.0-32.0); POTASSIUM 4.2 MEQ/L (3.5-5.1)
[2017-03-21] MEDS: FUROSEMIDE 20 MG/2 ML VIAL IV PUSH SCH ×2 (08:39→09:35)
[2017-03-21 09:00] VITALS: PULSE 53
[2017-03-21] MEDS: SODIUM CHLORIDE 0.9% FLUSH 10 ML FLUSH IV FLUSH SCH (09:00)
[2017-03-21] MEDS: DOCUSATE SODIUM 50 MG/SENNA 8.6 MG TAB PO SCH (09:17)
[2017-03-21] MEDS: CEFUROXIME AXETIL 500 MG TAB PO SCH (09:17)
[2017-03-21] MEDS: POTASSIUM CHLORIDE 10 MEQ CONTROLLED RELEASE TAB PO SCH (09:17)
--- NOTE | 2017-03-21 10:27 | HHI.PR ---
Subjective Remarks F/U PNA and BLE swelling. He has no new complaints denies SOB dw RN Objective Vitals Vital Signs Date Time Temp Pulse Resp B/P Pulse Ox O2 Delivery O2 Flow Rate FiO2 03/21/17 08:00 Room Air 03/21/17 08:00 97.8 65 20 108/58 96 03/21/17 04:00 97.5 68 18 115/63 95 03/21/17 04:00 Room Air 03/21/17 00:00 98.0 68 18 108/63 98 03/21/17 00:00 Room Air 03/20/17 20:20 57 03/20/17 20:00 Room Air 03/20/17 20:00 97.7 67 18 129/72 96 03/20/17 17:37 16 03/20/17 15:33 16 03/20/17 11:51 97.6 68 18 116/66 96 I/O 03/20/17 03/20/17 03/20/17 03/21/17 03/21/17 03/21/17 07:00 15:00 23:00 07:00 15:00 23:00 Intake Total 480 ml 600 ml 960 ml 480 ml Output Total 2050 ml 400 ml Balance 480 ml 600 ml -1090 ml 80 ml Intake Oral 480 ml 960 ml 480 ml IV Total 600 ml Output Urine Total 2050 ml 400 ml # Voids 3 # Bowel Movements 0 1 0 1 Result Diagram: 03/17/17 0741 03/21/17 0653 Imaging Last Impressions Chest X-Ray 03/16/171939 Signed Impressions: Service Date/Time: Thursday, March 16, 2017 19:46 - CONCLUSION: Mild left base atelectasis or consolidation. Dg Retana MD CT Angiography 03/16/171939 Signed Impressions: Service Date/Time: Thursday, March 16, 2017 22:48 - CONCLUSION: 1. Negative for pulmonary embolus. 2. Lung fibrotic changes most characteristic of idiopathic pulmonary fibrosis or usual interstitial pneumonitis if there is no underlying cause for pulmonary fibrosis. Borderline enlarged mediastinal and hilar lymph nodes. Fluid collection in the prevertebral region near the cervicothoracic junction better evaluated on recent MRI and possibly related to surgery. Eusebio Hopepr MD Thoracic Spine MRI 03/16/17 0000 Signed Impressions: Service Date/Time: Thursday, March 16, 2017 20:15 - CONCLUSION: Mild disc changes at the T5-T6, T7-T8 and T11-T12 levels as described above. An epidural fluid collection is not seen. Please see the cervical spine for description of a suspected inflammatory process in the lower cervical spine. Dg Retana MD Lumbar Spine MRI 03/16/17 0000 Signed Impressions: Service Date/Time: Thursday, March 16, 2017 20:15 - CONCLUSION: 1. Degenerative changes of the lumbar spine are again seen with no evidence for osteomyelitis or discitis. Avila Sanchez MD Lower Extremity Ultrasound 03/16/17 0000 Signed Impressions: Service Date/Time: Thursday, March 16, 2017 21:33 - CONCLUSION: No DVT. Dg Retana MD Cervical Spine MRI 03/16/17 0000 Signed Impressions: Service Date/Time: Thursday, March 16, 2017 20:15 - CONCLUSION: 1. Status post anterior cervical fusion with an anterior cervical fusion plate extending from C5 through C7. Bone plugs are seen at the C5-C6 and C6-C7 levels. There is enhancement and increased signal within the disc at these levels. This could all be postoperative change. Some degree of superimposed inflammatory process in these regions cannot be excluded. 2. Edema seen throughout the prevertebral soft tissues being most prominent at the C7 level. At this level, there appears to be a more focal fluid collection seen abutting the anterior-inferior aspect of the anterior cervical fusion plate. This extends anteriorly and to the right. It extends over a 4.3 cm length. This likely represents a postoperative fluid collection such as a seroma or abscess. Dg Retana MD Objective Remarks GENERAL: Well-developed obese in no distress SKIN: Warm and dry. HEAD: Atraumatic. Normocephalic. EYES: Pupils equal and round. No scleral icterus. No injection or drainage. ENT: No nasal bleeding or discharge. Mucous membranes pink and moist. NECK: Trachea midline. No JVD. CARDIOVASCULAR: Regular rate and rhythm. RESPIRATORY: No accessory muscle use. Clear to auscultation. Breath sounds equal bilaterally. GASTROINTESTINAL: Abdomen soft, non-tender, nondistended. MUSCULOSKELETAL: Extremities without clubbing, cyanosis but with bilateral lower extremity pitting edema. No obvious deformities. NEUROLOGICAL: Awake and alert. No obvious cranial nerve deficits. Motor grossly within normal limits. Five out of 5 muscle strength in the arms and legs. Normal speech. PSYCHIATRIC: Appropriate mood and affect; insight and judgment normal. Procedures none A/P Problem List: (1) Sepsis ICD Code: A41.9 Status: Acute (2) Abscess ICD Code: L02.91 Status: Acute (3) PNA (pneumonia) ICD Code: J18.9 Status: Acute (4) Tobacco abuse ICD Code: Z72.0 Status: Chronic Assessment and Plan 1. Sepsis: Temp 101.0, HR 120's, Lactic Acid 2.1, Source-likely C-Spine abscess, s/p Blood Cultures, Vanc/Rocephin/Zithro in ER. Repeat Lactic Acid now normalized at 0.9. Follow up cultures, continue IV Abx. Improving 2. Possible C-Spine Abscess: s/p ACDF C5-C7 secondary to cord compression by Dr. Ortiz, now w/ fever and complaints of neck pain. MRI C-Spine w/ fluid collection, possibly seroma vs abscess, images reviewed by me. Dr. Nazario consulted by ER physician, recommended continuation of IV Abx and will follow- up for decision regarding surgical intervention. Analgesics/antiemetics as needed. IV Abx as above. Counseled regarding narcotics switch to Lortab and IV morphine for breakthrough pain. Dr. Ortiz does not think patient has C- spine abscess. Physical therapy evaluation 3. PNA: CXR w/ mild left base consolidation, CTA Pulm negative for PE, fibrotic changes possibly IPF or interstitial pneumonitis, will continue with Abx switched to by mouth Ceftin and Zithromax sputum growing gram-negative yannick. DuoNeb prn as needed. Urinary Legionella and pneumococcal antigen requested. 4. Bilateral lower extremity edema. BNP within normal limits. Likely related to fluid overload. Gentle diuresis with potassium supplementation. Repeat BMP and magnesium stable per continue to monitor. Teds and elevation 5. Tobacco Abuse: Pt counselled. NicoDerm prn if needed. 6. Constipation. Continue Danna-Colace DVT Prophylaxis: SCD/Teds. Discharge Planning Stable for discharge Problem Qualifiers (1) Sepsis: Qualified Code: A41.9 - Sepsis, due to unspecified organism (2) PNA (pneumonia): Qualified Code: J18.1 - Pneumonia of left lower lobe due to infectious organism Santiago Gardner MD March 21, 2017 10:27
[2017-03-21] MEDS ORDERED: POTA10TA2 PO (10:29)
[2017-03-21] MEDS ORDERED: FURO20TA PO (10:29)
--- NOTE | 2017-03-21 10:31 | HHI.DS ---
Discharge Summary Admission Date March 16, 2017 at 23:07 Discharge Date: March 21, 2017 Admitting Diagnosis SEPSIS; PNEUMONIA; R/O POST OP INFECTION (1) Sepsis ICD Code: A41.9 Diagnosis: Principal (2) PNA (pneumonia) ICD Code: J18.9 Diagnosis: Principal (3) Tobacco abuse ICD Code: Z72.0 Diagnosis: Principal Procedures none Brief History - From Admission This is a 46-year-old male with a PMH of Testicular CA s/p Chemo/Radiation/ Orchiectomy, Tobacco Abuse and h/o Cord Compression s/p ACDF by Dr. Ortiz who presented to the ER w/ complaints of bilateral lower extremity edema, SOB , neck pain and generalized fatigue. Reports subjective fever/chills. States he walked approx 1 mile w/ his walker yesterday, today noted progressive lower extremity edema. Denies sick contacts. On arrival, BP 128/70, HR 104, O2 sat 95% on RA, Temp 101.0. WBC normal. ESR 36. Chemistry essentially at baseline. Lactic Acid 2.1. INR 1.0. UA negative. CXR with mild left base consolidation. CTA Pulm negative for PE, noted to have possible interstitial pneumonitis or pulmonary fibrosis, fluid collection in prevertebral region of the cervicothoracic junction. MRI C-spine status post anterior cervical fusion C5 through C7, focal fluid collection abutting anterior inferior cervical fusion plate, possibly seroma or abscess. MRI T/L-spine with mild disc changes no epidural fluid collection seen. Doppler LE negative for DVT. Dr. Nazario consulted by ER physician, recommended IV Abx and admission for further observation, unclear if surgical intervention needed at this time. S/p Rocephin /Vanc/Zithro in ER. CBC/BMP: 03/17/17 0741 03/21/17 0653 Significant Findings Laboratory Tests Test 03/18/17 03/19/17 03/20/17 14:02 07:59 01:29 Vancomycin Level Trough 12.1 MCG/ML 16.7 MCG/ML (5.0-10.0) (5.0-10.0) Estimat Glomerular Filtration 87 ML/MIN (>89) 75 ML/MIN (>89) Rate Imaging Last Impressions Chest X-Ray 03/16/171939 Signed Impressions: Service Date/Time: Thursday, March 16, 2017 19:46 - CONCLUSION: Mild left base atelectasis or consolidation. Dg Retana MD CT Angiography 03/16/171939 Signed Impressions: Service Date/Time: Thursday, March 16, 2017 22:48 - CONCLUSION: 1. Negative for pulmonary embolus. 2. Lung fibrotic changes most characteristic of idiopathic pulmonary fibrosis or usual interstitial pneumonitis if there is no underlying cause for pulmonary fibrosis. Borderline enlarged mediastinal and hilar lymph nodes. Fluid collection in the prevertebral region near the cervicothoracic junction better evaluated on recent MRI and possibly related to surgery. Eusebio Hopper MD Thoracic Spine MRI 03/16/17 Signed Impressions: Service Date/Time: Thursday, March 16, 2017 20:15 - CONCLUSION: Mild disc changes at the T5-T6, T7-T8 and T11-T12 levels as described above. An epidural fluid collection is not seen. Please see the cervical spine for description of a suspected inflammatory process in the lower cervical spine. Dg Retana MD Lumbar Spine MRI 03/16/17 Signed Impressions: Service Date/Time: Thursday, March 16, 2017 20:15 - CONCLUSION: 1. Degenerative changes of the lumbar spine are again seen with no evidence for osteomyelitis or discitis. Avila Sanchez MD Lower Extremity Ultrasound 03/16/17 Signed Impressions: Service Date/Time: Thursday, March 16, 2017 21:33 - CONCLUSION: No DVT. Dg Retana MD Cervical Spine MRI 03/16/17 Signed Impressions: Service Date/Time: Thursday, March 16, 2017 20:15 - CONCLUSION: 1. Status post anterior cervical fusion with an anterior cervical fusion plate extending from C5 through C7. Bone plugs are seen at the C5-C6 and C6-C7 levels. There is enhancement and increased signal within the disc at these levels. This could all be postoperative change. Some degree of superimposed inflammatory process in these regions cannot be excluded. 2. Edema seen throughout the prevertebral soft tissues being most prominent at the C7 level. At this level, there appears to be a more focal fluid collection seen abutting the anterior-inferior aspect of the anterior cervical fusion plate. This extends anteriorly and to the right. It extends over a 4.3 cm length. This likely represents a postoperative fluid collection such as a seroma or abscess. Dg Retana MD PE at Discharge GENERAL: Well-developed obese in no distress SKIN: Warm and dry. HEAD: Atraumatic. Normocephalic. EYES: Pupils equal and round. No scleral icterus. No injection or drainage. ENT: No nasal bleeding or discharge. Mucous membranes pink and moist. NECK: Trachea midline. No JVD. CARDIOVASCULAR: Regular rate and rhythm. RESPIRATORY: No accessory muscle use. Clear to auscultation. Breath sounds equal bilaterally. GASTROINTESTINAL: Abdomen soft, non-tender, nondistended. MUSCULOSKELETAL: Extremities without clubbing, cyanosis but with bilateral lower extremity pitting edema. No obvious deformities. NEUROLOGICAL: Awake and alert. No obvious cranial nerve deficits. Motor grossly within normal limits. Five out of 5 muscle strength in the arms and legs. Normal speech. PSYCHIATRIC: Appropriate mood and affect; insight and judgment normal. Hospital Course 1. Sepsis: Temp 101.0, HR 120's, Lactic Acid 2.1, Source-likely C-Spine abscess, s/p Blood Cultures, Vanc/Rocephin/Zithro in ER. Repeat Lactic Acid now normalized at 0.9. Follow up cultures, continue IV Abx. Improving 2. Possible C-Spine Abscess: s/p ACDF C5-C7 secondary to cord compression by Dr. Ortiz, now w/ fever and complaints of neck pain. MRI C-Spine w/ fluid collection, possibly seroma vs abscess, images reviewed by me. Dr. Nazario consulted by ER physician, recommended continuation of IV Abx and will follow- up for decision regarding surgical intervention. Analgesics/antiemetics as needed. IV Abx as above. Counseled regarding narcotics switch to Lortab and IV morphine for breakthrough pain. Dr. Ortiz does not think patient has C- spine abscess. Physical therapy evaluation 3. PNA: CXR w/ mild left base consolidation, CTA Pulm negative for PE, fibrotic changes possibly IPF or interstitial pneumonitis, will continue with Abx switched to by mouth Ceftin and Zithromax sputum growing gram-negative yannick. DuoNeb prn as needed. Urinary Legionella and pneumococcal antigen requested. 4. Bilateral lower extremity edema. BNP within normal limits. Likely related to fluid overload. Gentle diuresis with potassium supplementation. Repeat BMP and magnesium stable per continue to monitor. Teds and elevation 5. Tobacco Abuse: Pt counselled. NicoDerm prn if needed. 6. Constipation. Continue Danna-Colace DVT Prophylaxis: SCD/Teds. Pt Condition on Discharge: Stable Discharge Disposition: Discharge Home Discharge Time: > 30 minutes Discharge Instructions DIET: Follow Instructions for: Heart Healthy Diet Activities you can perform: Regular-No Restrictions Activities to Avoid: Driving Follow up Referrals: Neurosurgery - 1 Week PCP Follow-up - 1 Week New Orders: BASIC METABOLIC PROF - 03/25/17 X-RAY CHEST PA & LAT - 6 Weeks New Medications: Furosemide (Furosemide) 20 Mg Tab 20 MG PO DAILY Prevent Heart Failure #3 Ref 0 TAB Potassium Chloride ER (Potassium Chloride ER) 10 Meq Tab 10 MEQ PO DAILY Electrolyte Replacement #3 Ref 0 TAB Azithromycin (Azithromycin) 250 Mg Tab 250 MG PO DAILY Infection #3 TAB Cefuroxime (Ceftin) 500 Mg Tab 500 MG PO Q12HR Infection #18 TAB Continued Medications: Hydrocodone-Acetaminophen (Hydrocodone-Acetaminophen) 10-325 mg Tab 1 TAB PO Q4H PRN pain #90 Ref 0 TAB Additional Information I spent 35 minutes [id number] with the patient or on the napier discussing the patient's disposition, prognosis, and plan of care with patient's caregivers. Over half the time spent was devoted to counseling the patient regarding placement in coordinating care with caregivers and case management. Santiago Gardner MD March 21, 2017 10:31
[2017-03-21 12:00] VITALS: BP 108/62; PULSE 64; RESP 20; TEMP 97.6; O2SAT 99
[2017-03-21] MEDS ORDERED: AZITHROMYCIN 250 MG TAB PO SCH (13:00)
[2017-03-21] MEDS ORDERED: CEFU1TAB20 PO (15:16)
[2017-03-21] MEDS ORDERED: TRAM50TA PO (16:46)
== END 2017-03-21 16:30 | disposition home or self-care (01) | DRG 862 ==
LOC: NEPD 18:57 → NEDA 23:07 → N04B 03-17 00:27
PROVIDERS: ADMIT Internal Medicine; ATTEND Internal Medicine
DX: T81.4XXA Infection following a procedure, initial encounter (principal); A41.9 Sepsis, unspecified organism; J18.9 Pneumonia, unspecified organism; I42.9 Cardiomyopathy, unspecified; L02.212 Cutaneous abscess of back [any part, except buttock and flank]; Y83.8 Other surgical procedures as the cause of abnormal reaction of the patient, or of later complication, without mention of misadventure at the time of the procedure; K21.9 Gastro-esophageal reflux disease without esophagitis; F17.210 Nicotine dependence, cigarettes, uncomplicated; Z85.47 Personal history of malignant neoplasm of testis; E87.70 Fluid overload, unspecified; K59.00 Constipation, unspecified
CPT/HCPCS: 71010; 71275; 72156; 72157; 72158; 80048; 80053; 80202; 81001; 82565; 83605; 83735; 83880; 85025; 85610; 85652; 85730; 86140; 87040; 87070; 87077; 87186; 87205; 90732; 93970; 96365; 96375; A9579; J0456; J0696; J1170; J1940; J2270; J3370; J7030; J7040; J7050; Q9967

== ENCOUNTER → 2017-03-26 | Outpatient (CLI) | payer SELFPAY ==
[~2017-03-26] MED LIST changes: +AZIT250T3 PO; +CEFU1TAB20 PO; +FURO20TA PO; +PERC5TAB12 PO; +POTA10TA2 PO; -PRED5TAB PO; +SKEL800T21 PO; +TRAM50TA PO
[2017-03-26 11:06] LABS: BICARBONATE 26.2 MEQ/L (21.0-32.0); POTASSIUM 4.4 MEQ/L (3.5-5.1)
== END ==
LOC: CLAB 10:08
PROVIDERS: ATTEND Internal Medicine
DX: I42.9 Cardiomyopathy, unspecified (principal); J18.9 Pneumonia, unspecified organism; Y83.8 Other surgical procedures as the cause of abnormal reaction of the patient, or of later complication, without mention of misadventure at the time of the procedure; K21.9 Gastro-esophageal reflux disease without esophagitis
CPT/HCPCS: 36415; 80048

== ENCOUNTER 2017-04-01 05:32 | Emergency (ER) | payer SELFPAY ==
[~2017-04-01] VITALS: Ht 177.8 cm; Wt 104.0 kg
[~2017-04-01 05:32] MED LIST changes: -AZIT250T3 PO; -FURO20TA PO; -HYDR-3583 PO; -PERC5TAB12 PO; -POTA10TA2 PO; -SKEL800T21 PO
[2017-04-01 05:34] VITALS: BP 122/81; PULSE 104; RESP 18; TEMP 97.6; O2SAT 95
[2017-04-01] MEDS ORDERED: SODIUM CHLORIDE 0.9% FLUSH 10 ML FLUSH IVF PRN (06:30)
[2017-04-01 06:39] VITALS: RESP 16; O2SAT 97
--- NOTE | 2017-04-01 06:41 | RADRPT ---
EXAM DATE/TIME: 04/01/2017 06:37 [facility] COMPARISON: CHEST SINGLE AP, March 16, 2017, 19:46. INDICATIONS : Pt having shortness of breath. MEDICAL HISTORY : testicular cancer SURGICAL HISTORY : Fusion, cervical. ENCOUNTER: Initial ACUITY: 1 day PAIN SCORE: 7/10 LOCATION: Bilateral chest FINDINGS: A single view of the chest demonstrates the lungs to be symmetrically aerated without evidence of mas s, infiltrate or effusion. The cardiomediastinal contours are unremarkable. Osseous structures are intact. CONCLUSION: Normal examination. Bryon Montano MD on April 01, 2017 at 6:40 Board Certified Radiologist. This report was verified electronically.
[2017-04-01 06:55] LABS: AUTOMATED NEUTROPHIL # 6.7 TH/MM3 (1.8-7.7); BASOPHIL # 0.1 TH/MM3 (0-0.2); BASOPHIL % 1.3 % (0.0-2.0); EOSINOPHIL # 0.5 TH/MM3 (0-0.4); EOSINOPHIL % 4.3 % (0.0-4.0); HEMATOCRIT 42.8 % (39.0-51.0); LYMPH % 24.9 % (9.0-44.0); LYMPHOCYTE # 2.7 TH/MM3 (1.0-4.8); MEAN CELL VOLUME 94.9 FL (80.0-100.0); MEAN CORPUSCULAR HEMOGLOBIN 32.9 PG (27.0-34.0); MEAN CORPUSCULAR HGB CONC 34.7 % (32.0-36.0); MONO % 7.5 % (0.0-8.0); PLATELET COUNT 281 TH/MM3 (150-450); RED BLOOD COUNT 4.51 MIL/MM3 (4.50-5.90); RED CELL DISTRIBUTION WIDTH 12.3 % (11.6-17.2); WHITE BLOOD COUNT 10.8 TH/MM3 (4.0-11.0)
[2017-04-01 07:00] LABS: HEMO FLAGS AUTO DIFF
[2017-04-01] MEDS ORDERED: ACETAMINOPHEN/HYDROcodone 325 MG/5 MG TAB PO ONE (07:00)
[2017-04-01 07:02] LABS: APTT (PATIENT) 25.3 SEC (24.3-30.1); INTERNATIONAL NORMALIZED RATIO 0.9 RATIO; PROTHROMBIN TIME - PATIENT 10.4 SEC (9.8-11.6)
--- NOTE | 2017-04-01 07:11 | PD ---
HPI Chief Complaint: Respiratory Symptoms Time Seen by Provider: 06:00 Travel History International Travel<30 days: No Contact w/Intl Traveler<30days: No Traveled to known affect area: No History of Present Illness HPI The patient is a 46 year old male with a past medical history of testicular cancer status post chemotherapy, radiation therapy, and orchiectomy, history of tobacco abuse, and recent history of cord compression status post decompressive surgery by Dr. Ortiz on March 01, 2015 followed by recent admission for sepsis and pneumonia who presents to the [facility] emergency department with a history of recurrent fevers since discharge March 21, 2017. He reports that he was discharged home on antibiotic. He completed the course of antibiotic yesterday. He reports that last night he had a fever with a MAXIMUM TEMPERATURE of 100. He reports that he's had chills. He denies having any nausea or vomiting. He reports that he does have some shortness of breath with exertion, mainly with walking with his walker on a daily basis. He reports that is lower extremity tingling and weakness has been improving since discharge. The patient reports that he recently moved from [place]. He reports that he has not established with a primary care physician yet. The patient additionally reports that he has chronic low back pain. He reports that the tramadol that was prescribed at discharge is not helping. He reports that previously he was on [place]. The patient reports that his cough since discharge is less productive and when it is productive is only productive of white sputum. He denies being diagnosed with COPD in the past. He reports that he is down to smoking 4 cigarettes per day. He also smokes marijuana to control his back pain. Review of systems, the patient reports having diarrhea for the last 2 weeks. He denies having any blood or mucus in his stool. The patient denies any worsening cough or congestion, neck pain, chest pain, abdominal pain, vomiting, urinary symptoms, or new or worsening neurologic symptoms. [facility] Past Medical History Narrative Medical The patient's past medical history is significant for a recent admission for sepsis thought to be related to pneumonia, also there was concern about the possibility of postoperative cervical spine infection, however during his admission this was essentially ruled out. The patient has a history of testicular cancer status post chemotherapy and radiation therapy as well as orchiectomy, history of tobacco abuse, history of marijuana use, history of cord compression status post decompression on March [address] Ortiz, history of chronic back pain. Autoimmune Disease: No Cancer: Yes (testicular cancer) Cardiomyopathy: Yes Cardiovascular Problems: No Chemotherapy: Yes Diminished Hearing: No Endocrine: No Gastrointestinal Disorders: Yes (appendectomy) GERD: Yes Genitourinary: No Hiatal Hernia: No Immune Disorder: No Implanted Vascular Access Dvce: Yes Musculoskeletal: Yes Neurologic: Yes Psychiatric: No Reproductive: Yes Respiratory: No Radiation Therapy: Yes Ulcer: No ?: Not Past Surgical History Narrative Surgical The patient's past surgical history is significant for partial colectomy, appendectomy, orchiectomy, left lobe of the lung removed, cervical spine fusion. Abdominal Surgery: Yes (PARTIAL COLON REMOVAL) Appendectomy: Yes Cardiac Surgery: No Ear Surgery: No Endocrine Surgery: No Eye Surgery: No Genitourinary Surgery: No Gynecologic Surgery: No Neurologic Surgery: Yes (neck fusion C5-6, c6-7,) Oral Surgery: No Thoracic Surgery: No Other Surgery: Yes (LEFT LUNG LOBE REMOVED, ORCHIECTOMY RIGHT SIDE) Social History Alcohol Use: Yes (OCC) Tobacco Use: Yes (1/2 PPD) Substance Use: Yes (marijuana) Allergies-Medications (Allergen,Severity, Reaction): Coded Allergies: Cat Dander (Verified Allergy, Severe, 04/01/17) EYES WATERING Latex (Verified Allergy, Severe, 04/01/17) SKIN RASH Reported Meds & Prescriptions Reported Meds & Active Scripts Active Tramadol (Tramadol HCl) 50 Mg Tab 50 Mg PO Q8H PRN Review of Systems Except as stated in HPI: all other systems reviewed are Neg General / Constitutional: Positive: Fever (Tmax of 100), Chills Eyes: No: Visual changes HENT: No: Headaches Cardiovascular: Positive: Dyspnea on exertion, No: Chest Pain or Discomfort Respiratory: Positive: Cough, Shortness of Breath (with exertion) Gastrointestinal: Positive: Diarrhea, Changes in Bowel Habits (over the last 2 weeks), No: Nausea, Vomiting, Abdominal Pain, Hematochezia, Indigestion, Loss of Appetite Genitourinary: No: Dysuria Musculoskeletal: No: Pain Skin: No Rash Neurologic: No: Weakness (no worsening weakness), Focal Abnormalities, Change in Mentation, Slurred Speech, Sensory Disturbance Psychiatric: No: Depression Endocrine: No: Polydipsia Hematologic/Lymphatic: No: Easy Bruising Physical Exam Narrative General: The patient is well-developed well-nourished male in no acute distress. Head and Neck exam: Head is normocephalic atraumatic. Eyes: EOMI, pupils are equal round and reactive to light. Nose: Midline septum with pink mucous membranes Mouth: Dentition unremarkable. Moist mucus membranes. Posterior oropharynx is not erythematous. No tonsillar hypertrophy. Uvula midline. Airway patent. Neck: The patient has a [place] collar in place. The collar was removed and the patient's neck was examined. The patient's anterior scar is healing well. There is no erythema or edema noted. He has no spinous process tenderness to palpation. No step-off or crepitus. Cardiovascular: Regular rate and rhythm without murmurs, gallops, or rubs. Lungs: Soft expiratory wheezes are audible anteriorly and posteriorly without any accessory muscle use. No tripoding. No paroxysmal abdominal breathing. No rhonchi or crackles are audible. Abdomen: Soft, without tenderness to palpation in all 4 quadrants of the abdomen. No guarding, rebound, or rigidity. Normal bowel sounds are audible. No tenderness on palpation of McBurney's point. Extremities: No clubbing, cyanosis, or edema. 2+ pulses in all 4 extremities. Back: No spinous process tenderness to palpation. No costovertebral angle tenderness to palpation. Neurologic Exam: Cranial nerves 2-12 were intact on exam. Strength is 5/5 in all 4 extremities. No sensory deficits noted. Skin Exam: No rash noted. Intact skin that is warm and dry. Data Data Last Documented VS Vital Signs Date Time Temp Pulse Resp B/P Pulse Ox O2 Delivery O2 Flow Rate FiO2 04/01/17 06:47 98 Room Air 04/01/17 06:39 16 04/01/17 05:34 97.6 104 122/81 Orders Complete Blood Count With Diff (04/01/17 06:25) Comprehensive Metabolic Panel (04/01/17 06:25) B-Type Natriuretic Peptide (04/01/17 06:25) Act Partial Throm Time (Ptt) (04/01/17 06:25) Prothrombin Time / Inr (Pt) (04/01/17 06:25) Magnesium (Mg) (04/01/17 06:25) Ckmb (Isoenzyme) Profile (04/01/17 06:25) Troponin I (04/01/17 06:25) Urinalysis - C+S If Indicated (04/01/17:25) Blood Culture (04/01/17 06:25) Iv Access Insert/Monitor (04/01/17 06:25) Electrocardiogram (04/01/17 06:25) Ecg Monitoring (04/01/17 06:25) Oximetry (04/01/17:25) Oxygen Administration (04/01/17:25) Chest, Single Ap (04/01/17 06:25) Sodium Chloride 0.9% Flush (Ns Flush) (04/01/17 06:30) Lactic Acid Sepsis Protocol (04/01/17 06:25) Albuterol-Ipratropium Neb (Duoneb Neb) (04/01/17 07:00) Acetamin-Hydrocod 325-5 Mg ([place] 5-325 (04/01/17 07:00) MDM Medical Decision Making Medical Screen Exam Complete: Yes Emergency Medical Condition: Yes Medical Record Reviewed: Yes Differential Diagnosis Recurrent pneumonia, versus C. difficile colitis, versus COPD exacerbation, versus urinary tract infection Narrative Course During the course of the patients emergency department visit, the patients history, examination, and differential diagnosis were reviewed with the patient. The patient had IV access obtained and blood work sent for analysis. The patient was placed on a cardiac cath lab radiology technologist with oximetry and blood pressure monitoring. An EKG was done on arrival. The patient's EKG shows a sinus rhythm heart rate of 74, no acute ST segment elevation or depression, QRS duration is 92 ms, QTC 420 ms. The patient was initially provided DuoNeb 2 for wheezing noted. The patient was given [place] 5 mg by mouth 1. The patient's case was checked out to the oncoming emergency physician to disposition based on the conclusion of the patient's workup. Saadia Martinez MD Apr 01, 2017 07:11
[2017-04-01 07:14] LABS: ALT (GPT) 40 U/L (12-78); ANION GAP 6 MEQ/L (5-15); AST (GOT) 21 U/L (15-37); BICARBONATE 26.6 MEQ/L (21.0-32.0); BLOOD UREA NITROGEN 12 MG/DL (7-18); CHLORIDE 107 MEQ/L (98-107); GLOMERULAR FILTRATION RATE 83 ML/MIN (>89); MAGNESIUM 2.1 MG/DL (1.5-2.5); POTASSIUM 4.3 MEQ/L (3.5-5.1); SODIUM (NA) 140 MEQ/L (136-145)
[2017-04-01 07:15] LABS: ALKALINE PHOSPHATASE 108 U/L (45-117); CREATINE KINASE 192 U/L (39-308); TOTAL BILIRUBIN ADULT 0.3 MG/DL (0.2-1.0)
[2017-04-01 07:28] LABS: CKMB 2.5 NG/ML (0.5-3.6)
[2017-04-01] MEDS: RESP: ALBUTEROL 2.5 MG/IPRATROPIUM 0.5 MG NEB (SCH) INH ×2 (07:38→07:39)
[2017-04-01 07:41] VITALS: O2SAT 98
[2017-04-01 07:48] LABS: SCAN/DIFF AUTO DIFF CONFIRMED
[2017-04-01 07:53] LABS: BLOOD, URINE NEG (NEG); GLUCOSE,URINE NEG (NEG); KETONE, URINE NEG (NEG); NITRITE,URINE NEG (NEG); PH, URINE 5.5 (5.0-8.5); URINE COLOR YELLOW (YELLW/STRAW)
[2017-04-01 08:00] VITALS: BP 127/80; PULSE 80; RESP 16; O2SAT 97
[2017-04-01 08:08] LABS: CULTURE IF INDICATED CULT NOT INDICATED; SQUAMOUS EPITHELIAL CELL URINE 0-5 /hpf (0-5)
[2017-04-01 08:09] LABS: COMMENT (UR) CULT NOT INDICATED
[2017-04-01] MEDS ORDERED: PERC5TAB12 PO (08:43)
--- NOTE | 2017-04-01 08:45 | PD ---
Data Data Last Documented VS Vital Signs Date Time Temp Pulse Resp B/P Pulse Ox O2 Delivery O2 Flow Rate FiO2 04/01/17 08:00 80 16 127/80 97 Room Air 04/01/17 07:41 21 04/01/17 05:34 97.6 Orders Complete Blood Count With Diff (04/01/17 06:25) Comprehensive Metabolic Panel (04/01/17 06:25) B-Type Natriuretic Peptide (04/01/17 06:25) Act Partial Throm Time (Ptt) (04/01/17 06:25) Prothrombin Time / Inr (Pt) (04/01/17 06:25) Magnesium (Mg) (04/01/17 06:25) Ckmb (Isoenzyme) Profile (04/01/17 06:25) Troponin I (04/01/17 06:25) Urinalysis - C+S If Indicated (04/01/17 06:25) Blood Culture (04/01/17 06:25) Iv Access Insert/Monitor (04/01/17 06:25) Electrocardiogram (04/01/17 06:25) Ecg Monitoring (04/01/17 06:25) Oximetry (04/01/17 06:25) Oxygen Administration (04/01/17 06:25) Chest, Single Ap (04/01/17 06:25) Sodium Chloride 0.9% Flush (Ns Flush) (04/01/17 06:30) Lactic Acid Sepsis Protocol (04/01/17 06:25) Albuterol-Ipratropium Neb (Duoneb Neb) (04/01/17 07:00) Acetamin-Hydrocod 325-5 Mg (Sterling 5-325 (04/01/17 07:00) CKMB (04/01/17 06:35) CKMB% (04/01/17 06:35) Labs Laboratory Tests Test 04/01/17 04/01/17 06:35 07:40 White Blood Count 10.8 TH/MM3 Red Blood Count 4.51 MIL/MM3 Hemoglobin 14.8 GM/DL Hematocrit 42.8 % Mean Corpuscular Volume 94.9 FL Mean Corpuscular Hemoglobin 32.9 PG Mean Corpuscular Hemoglobin 34.7 % Concent Red Cell Distribution Width 12.3 % Platelet Count 281 TH/MM3 Mean Platelet Volume 9.1 FL Neutrophils (%) (Auto) 62.0 % Lymphocytes (%) (Auto) 24.9 % Monocytes (%) (Auto) 7.5 % Eosinophils (%) (Auto) 4.3 % Basophils (%) (Auto) 1.3 % Neutrophils # (Auto) 6.7 TH/MM3 Lymphocytes # (Auto) 2.7 TH/MM3 Monocytes # (Auto) 0.8 TH/MM3 Eosinophils # (Auto) 0.5 TH/MM3 Basophils # (Auto) 0.1 TH/MM3 CBC Comment AUTO DIFF Differential Comment AUTO DIFF CONFIRMED Prothrombin Time 10.4 SEC Prothromb Time International 0.9 RATIO Ratio Activated Partial 25.3 SEC Thromboplast Time Sodium Level 140 MEQ/L Potassium Level 4.3 MEQ/L Chloride Level 107 MEQ/L Carbon Dioxide Level 26.6 MEQ/L Anion Gap 6 MEQ/L Blood Urea Nitrogen 12 MG/DL Creatinine 0.97 MG/DL Estimat Glomerular Filtration 83 ML/MIN Rate Random Glucose 112 MG/DL Lactic Acid Level 1.5 mmol/L Calcium Level 8.9 MG/DL Magnesium Level 2.1 MG/DL Total Bilirubin 0.3 MG/DL Aspartate Amino Transf 21 U/L (AST/SGOT) Alanine Aminotransferase 40 U/L (ALT/SGPT) Alkaline Phosphatase 108 U/L Total Creatine Kinase 192 U/L Creatine Kinase MB 2.5 NG/ML Troponin I LESS THAN 0.02 NG/ML B-Type Natriuretic Peptide 3 PG/ML Total Protein 7.7 GM/DL Albumin 3.8 GM/DL Urine Color YELLOW Urine Turbidity CLEAR Urine pH 5.5 Urine Specific Bernard 1.015 Urine Protein NEG mg/dL Urine Glucose (UA) NEG mg/dL Urine Ketones NEG mg/dL Urine Occult Blood NEG Urine Nitrite NEG Urine Bilirubin NEG Urine Urobilinogen LESS THAN 2.0 MG/DL Urine Leukocyte Esterase NEG Urine Squamous Epithelial 0-5 /hpf Cells Urine Trichomonas CNI Microscopic Urinalysis Comment CULT NOT INDICATED MDM Supervised Visit with KARAN: No Narrative Course This case is checked out to me by Dr. Martinez at 7 AM. I have spoken with the patient and reviewed the entirety of the workup. He has a normal chest x-ray and clean urine Normal CBC and metabolic profiles Has normal vital signs and stable for outpatient follow-up Wrote him 10 pain pills Says he is trying to get into pain management Diagnosis Primary Impression: Back pain Qualified Code: M54.5 - Chronic midline low back pain without sciatica Additional Instruction: The patient was advised to follow up with their physician and return if they worsen. The patient was warned about potential sedation for the medications they will receive on prescription. Med/Other Pt SpecificInfo: Prescription(s) given Scripts Oxycodone-Acetaminophen (Percocet)5-325 mg Tab1 Tab PO Q6H PRN (PAIN) #10 TAB Ref 0 Prov:Jermain Suazo MD 04/01/17 Disposition: 01 DISCHARGE HOME Condition: Stable Jermain Suazo MD Apr 01, 2017 08:45
--- NOTE | 2017-04-01 11:21 | EKG ---
Date Performed: 04/01/2017 Time Performed: 06:35:41 PTAGE: 46 years EKG: Sinus rhythm NORMAL ECG Compared to prior tracing no significant change PREVIOUS TRACING : 03/01/2017 12.59 DOCTOR: Tomas Martinez Interpretating Date/Time 04/01/2017 11:18:15
== END 2017-04-01 09:00 | disposition home or self-care (01) ==
LOC: NEPE 05:32
DX: M54.5 Low back pain (principal); R06.02 Shortness of breath; F17.210 Nicotine dependence, cigarettes, uncomplicated; F12.90 Cannabis use, unspecified, uncomplicated; Z85.47 Personal history of malignant neoplasm of testis; Z79.899 Other long term (current) drug therapy
CPT/HCPCS: 71010; 80053; 81001; 82550; 82552; 83605; 83735; 83880; 84484; 85025; 85610; 85730; 87040; 93005; 94640; 94664; 99285

== ENCOUNTER 2017-04-07 23:16 | Emergency (ER) | payer OTHER ==
[~2017-04-07] VITALS: Ht 177.8 cm; Wt 102.0 kg
[~2017-04-07 23:16] MED LIST changes: -CEFU1TAB20 PO; +PERC5TAB12 PO
[2017-04-07 23:19] VITALS: BP 114/74; PULSE 100; RESP 16; TEMP 98.2; O2SAT 97
[2017-04-07 23:32] VITALS: O2SAT 95
[2017-04-08 00:04] LABS: AUTOMATED NEUTROPHIL # 5.8 TH/MM3 (1.8-7.7); BASOPHIL # 0.1 TH/MM3 (0-0.2); BASOPHIL % 1.1 % (0.0-2.0); EOSINOPHIL # 0.4 TH/MM3 (0-0.4); EOSINOPHIL % 4.1 % (0.0-4.0); HEMATOCRIT 41.4 % (39.0-51.0); HEMO FLAGS DIFF FINAL; LYMPH % 30.6 % (9.0-44.0); LYMPHOCYTE # 3.1 TH/MM3 (1.0-4.8); MEAN CELL VOLUME 96.3 FL (80.0-100.0); MEAN CORPUSCULAR HEMOGLOBIN 32.8 PG (27.0-34.0); MEAN CORPUSCULAR HGB CONC 34.1 % (32.0-36.0); MONO % 7.5 % (0.0-8.0); NEUT % 56.7 % (16.0-70.0); PLATELET COUNT 234 TH/MM3 (150-450); RED CELL DISTRIBUTION WIDTH 12.5 % (11.6-17.2); WHITE BLOOD COUNT 10.3 TH/MM3 (4.0-11.0)
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
[2017-04-08] MEDS ORDERED: KETOROLAC TROMETHAMINE 30 MG/ML (IVP) VIAL IV PUSH ONE (00:45)
[2017-04-08] MEDS ORDERED: CYCLOBENZAPRINE HCL 10 MG TAB PO ONE (00:45)
[2017-04-08 00:51] LABS: BICARBONATE 25.3 MEQ/L (21.0-32.0); POTASSIUM 3.9 MEQ/L (3.5-5.1)
[2017-04-08] MEDS ORDERED: SKEL800T21 PO (01:30)
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
[2017-04-08] MEDS ORDERED: ACETAMINOPHEN 325 MG TAB PO ONE (02:00)
[2017-04-08 03:00] VITALS: BP 130/76
== END 2017-04-08 03:25 ==
LOC: NEPE 23:16
DX: M54.5 Low back pain (principal); G89.29 Other chronic pain; M54.2 Cervicalgia; F17.200 Nicotine dependence, unspecified, uncomplicated; Z98.890 Other specified postprocedural states; Z87.39 Personal history of other diseases of the musculoskeletal system and connective tissue; Z86.79 Personal history of other diseases of the circulatory system; Z87.19 Personal history of other diseases of the digestive system; Z86.69 Personal history of other diseases of the nervous system and sense organs; W51.XXXA Accidental striking against or bumped into by another person, initial encounter
CPT/HCPCS: 70450; 72125; 72131; 80048; 85025; 96374; 99285; J1885